=== PATIENT | female | born 1955 | race Caucasian/White ===

== ENCOUNTER 2016-07-04 12:56 | Outpatient (CLI) ==
[2016-03-06 15:49] VITALS: BMI 41.0
--- NOTE | 2016-07-04 14:21 | DI ---
Examination: Two radiographic images of the chest. Comparison: 01/18/2016. Reason for study: Shortness of breath. FINDINGS: No pneumothorax, pleural effusion, or focal consolidation. The cardiac silhouette is not enlarged. The imaged osseous structures are unremarkable. Impression: No acute cardiopulmonary findings.
--- NOTE | 2016-07-04 14:22 | DI ---
EXAM: Right wrist three-view HISTORY: Pain COMPARISON: None FINDINGS: The bones are normal. The joints are normal. No focal soft tissue abnormality. IMPERSSION: Normal examination.
--- NOTE | 2016-07-04 14:23 | DI ---
EXAM: Right forearm two-view HISTORY: Pain COMPARISON: None FINDINGS: The bones are normal. Alignment is normal. No focal soft tissue abnormality. IMPERSSION: Normal examination.
== END 2016-07-04 12:57 | disposition home or self-care (01) ==
LOC: CAR 12:56
PROVIDERS: ATTEND Internal Medicine
DX: J45.909 Unspecified asthma, uncomplicated (principal); R06.02 Shortness of breath; M25.531 Pain in right wrist; M79.631 Pain in right forearm
CPT/HCPCS: 93005; 93010

== ENCOUNTER 2017-04-15 14:52 | Emergency (ER) ==
--- NOTE | 2017-04-15 14:58 | ED.PDOC ---
General ED Provider: Dr. KALANI NAGY JR Chief Complaint: Fall Stated Complaint: lost balance while doing dishes at 2am this morning and fell. complains of back pain, left knee, ankle and foot pain [ End ]98.1 73 20 93 158/ 89 12/18 Time Seen by Physician: 16:28 Mode of Arrival: Walk-In Information Source: Patient Exam Limitations: No limitations Primary Care Provider: JOYCE MCINTYRE Nursing and Triage Documentation Reviewed and Agree: No Review of Systems - Review Of Systems Constitutional: Reports: No symptoms Eyes: Reports: No symptoms Ears, Nose, Mouth, Throat: Reports: No symptoms Respiratory: Reports: No symptoms Cardiac: Reports: No symptoms GI: Reports: No symptoms : Reports: No symptoms Musculoskeletal: Reports: Back pain, Joint pain Skin: Reports: No symptoms Neurological: Reports: No symptoms Endocrine: Reports: No symptoms Hematologic/Lymphatic: Reports: No symptoms All Other Systems: Other Past Medical History - Past Medical History Previously Healthy: Yes Endocrine: Reports: DM 2, Hypothyroid, Dyslipidemia Cardiovascular: Reports: None, Other (MITRAL VALVE PROLAPSE) Respiratory: Reports: None Hematological: Reports: None Gastrointestinal: Reports: None, Liver, Other (GASTROENTERITIS, IBS) Genitourinary: Reports: CKD Neuro/Psych: Reports: None Musculoskeletal: Reports: Arthritis Cancer: Reports: Other Last Menstrual Period: none - Surgical History General Surgical History: Reports: Tubal ligation (TUBAL LIGATION, OOPHORECTOMY) , Cholecystectomy, Back Surgery (BACK SURGERY IN 2008) - Family History Family History: Reports: Unknown - Social History Smoking Status: Former smoker Hx Substance Use: No Alcohol Screening: None Physical Exam - Physical Exam Appearance: Well-appearing Pain Distress: Mild Neck: Supple Respiratory: Airway patent Musculoskeletal: Normal strength, ROM intact, No edema, No calf tenderness ( tenderness left knee foot and back as noted) Skin: Warm, Dry, Normal color Neurological: Sensation intact, Motor intact, Reflexes intact, Cranial nerves intact, Alert, Oriented Psychiatric: Affect appropriate, Mood appropriate Interpretation - Radiology Interpretation Radiology Interpretation By: Radiologist Radiology Results: Negative Exam Interpreted: CT Scan (lsspine degenerative disease no acute changes), Other (knee foot no fracture) Critical Care Note - Critical Care Note Total Time (mins): 0 Course - Course Orders, Labs, Meds: Orders Category Date Time Status CT LUMBAR SPINE W/O CONTRAST Stat RADS 12/06/17 15:21 Completed FOOT, LEFT 3 VIEWS Stat RADS 04/15/17 15:21 Completed KNEE, LEFT 4 VIEWS Stat RADS 04/15/17 15:21 Completed Vital Signs: Temp Pulse Resp BP Pulse Ox 04/15/17 14:52 98.1 F 73 20 158/89 H 93 L Departure - Departure Time of Disposition: 16:30 Disposition: HOME SELF-CARE Discharge Problem: Falls, Multiple contusions Instructions: Contusion in Adults (ED) Condition: Good Pt referred to PMD for follow-up: Yes Additional Instructions: discuss nodule seen on CT with PMD Please follow-up with Dr. Mcintyre in 1-3 days ice for 20 minutes three times a day for three days Tylenol for pain return if worsening. recheck if pain not resolved in a week Allergies/Adverse Reactions: Allergies epinephrine Adverse Reaction (Mild, Verified 04/15/17 14:57) PT STATES SHE HAD A LOCAL REACTION WHERE THE INJECTION WAS IN THE 80'S metronidazole [From Flagyl] Adverse Reaction (Verified 04/15/17 14:57) naproxen [From Naprosyn] Adverse Reaction (Verified 04/15/17 14:57) Penicillins Adverse Reaction (Verified 04/15/17 14:57) Sulfa (Sulfonamide Antibiotics) Adverse Reaction (Verified 04/15/17 14:57) sulfamethoxazole [From Bactrim] Adverse Reaction (Verified 04/15/17 14:57) trimethoprim [From Bactrim] Adverse Reaction (Verified 04/15/17 14:57) vancomycin Adverse Reaction (Verified 04/15/17 14:57) Home Medications: Ambulatory Orders Levothyroxine Sodium [Synthroid] 75 mcg PO QDAC 11/12/12 Lisinopril [Zestril] 20 mg PO DAILY 11/12/12 Pantoprazole Sodium [Protonix] 40 mg PO BID 11/12/12 Alprazolam [Xanax] 0.5 mg PO TID 04/21/14 Metoprolol Tartrate [Lopressor] 50 mg PO DAILY 04/21/14 Gabapentin 400 mg PO TID 07/07/15 Tramadol HCl 50 mg PO DAILY 07/07/15 Albuterol Sulfate [Ventolin Hfa] 18 gm IH Q6H 04/15/17 Hydrocodone Bit/Acetaminophen [[place] 7.5-325] 1 tab PO TID 04/15/17 Insulin Aspart Prot/Insuln Asp [Novolog Mix 70-30 Flexpen Syrn] 100 unit SQ DAILY 04/15/17 Insulin Regular, Human [Novolin R Insulin] 0 unit SUBCUT DIRECTED 04/15/17 Liraglutide [Victoza 2-Everett] 1.2 mg SQ DAILY 04/15/17 Lisinopril/Hydrochlorothiazide [Zestoretic 20-12.5 mg Tab] 1 tab PO DAILY
[2017-04-15 15:00] VITALS: BP 158/89; TEMP 98.1; BMI 41.3
--- NOTE | 2017-04-15 15:49 | DI ---
EXAM: LEFT KNEE. HISTORY: Fall, patellar pain FINDINGS: Left knee four view. Articular cartilage width is normal. There is no fracture or joint effusion. Bone density and soft tissues are within normal limits. IMPRESSION: Within normal limits.
--- NOTE | 2017-04-15 15:52 | DI ---
EXAM: LEFT FOOT, 3 VIEWS HISTORY: Fall, second metatarsal pain FINDINGS / IMPRESSION: No displaced fracture or joint dislocation. Mild arthropathy of the interpha langeal joints. No joint effusion.
--- NOTE | 2017-04-15 16:16 | CT ---
EXAM: CT of the lumbar spine without contrast History: Lower back trauma and right paraspinal pain. Comparison: CT lumbar spine 02/02/2015 Technique: Multiplanar CT images through the lumbar spine were obtained without the administration o f IV contrast Findings: Nodular cirrhotic liver. Uterine fibroid measuring 5 cm. 1 cm hyperattenuating subcutaneo us lesion posterior to the left side of L2. No acute fracture or subluxation of the lumbar spine. Moderate to severe disc space narrowing at L5- S1 with endplate sclerosis, osteophyte formation and vacuum disc phenomenon not significantly changed compared to the prior study. T12-L1: No significant disc bulge, central canal stenosis or neural foraminal narrowing. L1-L2: No significant disc bulge, central canal stenosis or neural foraminal narrowing. L2-L3: No significant disc bulge, central canal stenosis or bony neural foraminal narrowing. L3-L4: No significant disc bulge or central canal stenosis. Mild bilateral bony neural foraminal na rrowing secondary to ligamentous and facet hypertrophy. L4-L5: Small to modest paracentral disc protrusion effacing the anterior thecal sac with mild to mod erate central canal stenosis. Moderate bilateral bony neural foraminal narrowing secondary to ligame ntous and facet hypertrophy. L5-S1: Left paracentral posterior disc osteophyte complex. Mild central canal stenosis. Severe lef t and moderate right bony neural foraminal narrowing secondary to ligamentous and facet hypertrophy. Impression: 1. No acute osseous abnormality of the lumbar spine. 2. Moderate to severe degenerative disc disease at L5-S1. 3. Level by level analysis as detailed above with severe left-sided bony neural foraminal narrowing at L5-S1. 4. Uterine fibroid. 5. Indeterminate subcutaneous skin lesion posterior to the left side of L2 could be benign or malign ant. Correlate clinically.
== END 2017-04-15 16:50 | disposition home or self-care (01) ==
LOC: ED 14:52
DX: M54.9 Dorsalgia, unspecified (principal); M25.562 Pain in left knee; M25.572 Pain in left ankle and joints of left foot; W19.XXXA Unspecified fall, initial encounter
CPT/HCPCS: 99283

== ENCOUNTER 2017-04-23 12:52 | Outpatient (CLI) ==
--- NOTE | 2017-04-23 14:41 | MRI ---
EXAM: MRI of the left knee without contrast COMPARISON: None available. HISTORY: Left knee pain. TECHNIQUE: Multiplanar noncontrast MR images of the left knee were acquired using a 1.2 Kaitlyn magnet . FINDINGS: No recent radiographs of the left knee are available for comparison and radiographic corre lation is recommended. There is a tear extending obliquely to the inferior articular surface of the medial meniscus from the body through the posterior horn with peripheral undersurface flap extending just into the inferior r ecess at the level the body. Minimal blunting and irregularity of the free edge at the posterior hor n and root related to degenerative fraying/small free edge tear as well. There is intrasubstance degeneration of the lateral meniscus. Degenerative fraying/small tear involv ing the free edge of the posterior horn/root through the body. Intact anterior and posterior cruciate ligament fibers are identified. Medial collateral ligament, l ateral collateral ligament complex and posterolateral corner ligaments are intact. Mild distal quadr iceps tendinosis. The patellar tendon is intact. Subcutaneous edema anteriorly. No abnormal sublux ation of the patella. There is chondromalacia patella with mild thinning and superficial irregularity of the cartilage of t he patella. Mild thinning and irregularity of the cartilage in the medial and lateral compartments. No evidence of an acute fracture, osteomyelitis or focal marrow lesion. Small joint effusion, nonsp ecific. There is a popliteal cyst measuring 4.0 x 1.4 x 0.8 cm. There is a heterogeneous 7.6 x 3.3 x 0.8 cm T2 hyperintense collection extending along the posterolateral aspect of the popliteal cyst e xtending along the surface of the medial head of the gastrocnemius with adjacent edema which may repr esent sequela of popliteal cyst rupture and/or adjacent evolving hematoma. IMPRESSION: 1. Popliteal cyst with an adjacent heterogeneous T2 hyperintense collection related to a cyst ruptur e and/or adjacent evolving hematoma. Consider follow-up MRI with and without contrast in 2-3 months time in order to document resolution. 2. Flap tear of the medial meniscus as described. 3. Degenerative fraying and small tear of the free edge of the lateral meniscus. 4. Mild distal quadriceps tendinosis and enthesopathy. 5. Mild tricompartmental osteoarthrosis.
== END 2017-04-23 12:53 | disposition home or self-care (01) ==
LOC: RAD 12:52
PROVIDERS: ATTEND Internal Medicine
DX: M25.562 Pain in left knee (principal); W19.XXXA Unspecified fall, initial encounter

== ENCOUNTER 2017-08-15 18:52 | Emergency (ER) ==
[2017-08-15 19:00] VITALS: BP 145/85; TEMP 98.2; BMI 42.5
--- NOTE | 2017-08-15 19:12 | ED.PDOC ---
General ED Provider: Dr. ALEXIS BUTT Chief Complaint: Shortness of Air Stated Complaint: Pateint is a 62 year old female who comes to the ER with cough , upper respitory symptoms, short of air, sore throat. States she quit smoking 9 year ago. Denies any fever. Has chest pain with cough only. Time Seen by Physician: 19:10 Mode of Arrival: Walk-In Information Source: Patient Primary Care Provider: JOYCE MCINTYRE Nursing and Triage Documentation Reviewed and Agree: Yes Reviewed sepsis parameters & appropriate labs ordered?: No System Inflammatory Response Syndrome: Not Applicable Sepsis Protocol: For patient's 13 years and over: Temp is 96.8 and below OR 101 and greater Pulse >90 BPM Resp >20/minute Acutely Altered Mental Status Are patient's symptoms suggestive of a new infection, such as: -Pneumonia -Skin, Soft Tissue -Endocarditis -UTI -Bone, Joint Infection -Implantable Device -Acute Abdominal Infection -Wound Infection -Meningitis -Blood Stream Catheter Infection -Unknown System Inflammatory Response Syndrome: Not Applicable Respiratory Complaint Exam - Respiratory Complaint/Exam Onset/Duration: 1 week Symptoms Are: Still present Timing: Constant Initial Severity: Moderate Current Severity: Moderate Location: Throat, Chest Character: Reports: Non-productive cough Aggravating: Reports: URI, Weather. Denies: Passive smoke exposure Associated Signs and Symptoms: Reports: URI, Sore throat. Denies: Fever, Chills Related History: Reports: Similar episode History of Healthcare-Acquired Pneumonia: No Related Surgical History: Reports: None Pulmonary Embolism Risk Factors: None Cardiac Risk Factors: Reports: None Pseudomonas Risk Factors: Reports: None Tuberculosis Risk Factors: Reports: None Status Asthmaticus Risk Factors: Reports: None Home Oxygen Use: No Recent Stress Test: No Recent Echo/LV Function: No Current Antibiotic Use: No Current Asthma Medication Use: Yes (Ventoline q 6 hours ) Respiratory Distress: None Inadequate Respiratory Effort: No Dysphagia Present: No Stridor Present: No JVD Present: No Accessory Muscle Use: No Retractions: Not Present Grunting Respirations: No Kussmaul Respirations: No Differential Diagnoses: Bronchitis, Sinusitis, URI Review of Systems - Review Of Systems Constitutional: Denies: Chills Eyes: Reports: No symptoms Ears, Nose, Mouth, Throat: Reports: Ear pain (itching pain), Throat pain Respiratory: Reports: Cough, Short of air (mild) Cardiac: Reports: Chest pain (with cough conly ) GI: Reports: No symptoms : Reports: No symptoms Musculoskeletal: Reports: No symptoms Skin: Reports: No symptoms Neurological: Reports: Headache All Other Systems: Reviewed and Negative Past Medical History - Past Medical History Previously Healthy: Yes Endocrine: Reports: DM 2, Hypothyroid, Dyslipidemia Cardiovascular: Reports: Other (MITRAL VALVE PROLAPSE) Respiratory: Reports: Asthma Hematological: Reports: None Gastrointestinal: Reports: None, Liver, Other (GASTROENTERITIS, IBS) Genitourinary: Reports: CKD Neuro/Psych: Reports: None Musculoskeletal: Reports: Arthritis Cancer: Reports: Other Last Menstrual Period: na Other Pertinent Past Medical History: GASTROENTERITIS, MITRAL VALVE PROLAPSE, IBS - Surgical History General Surgical History: Reports: Tubal ligation (TUBAL LIGATION, OOPHORECTOMY) , Cholecystectomy, Back Surgery (BACK SURGERY IN 2008) - Family History Family History: Reports: Unknown - Social History Smoking Status: Former smoker Hx Substance Use: No Alcohol Screening: None - Immunizations Tetanus Shot up to Date: Yes Physical Exam - Physical Exam Appearance: Ill-appearing Ill-appearing: Mild Pain Distress: Moderate Eyes: KALYANI, EOMI, Conjunctiva clear ENT: Ears normal, Nose normal, Oropharynx normal ( Tender left maxillary sinuses ) Neck: Supple Respiratory: Airway patent, Breath sounds clear, Breath sounds equal, Respirations nonlabored Cardiovascular: RRR, Pulses normal, No rub, No murmur Neurological: Alert, Oriented Psychiatric: Affect appropriate, Mood appropriate Critical Care Note - Critical Care Note Total Time (mins): 0 Course - Course Orders, Labs, Meds: Orders Category Date Time Status RAPID STREP SCREEN [MOLECULAR GROUP A STREP] Stat LAB 08/15/17 19:20 Completed Acetaminophen [Tylenol] MEDS 08/15/17 19:22 Discontinued 650 mg PO ONCE STA Benzonatate [Tessalon Perles] MEDS 08/15/17 19:24 Discontinued 100 mg PO ONCE STA Medications Discontinued Medications Generic Name Dose Route Start Last Admin Trade Name Javedq PRN Reason Stop Dose Admin Acetaminophen 650 mg 08/15/17 19:22 08/15/17 19:28 Tylenol PO 08/15/17 19:23 650 mg ONCE STA Administration Benzonatate 100 mg 08/15/17 19:24 08/15/17 19:27 Tessalon Perles PO 08/15/17 19:25 100 mg ONCE STA Administration Vital Signs: Temp Pulse Resp BP Pulse Ox 08/15/17 18:54 98.2 F 84 16 145/85 H 92 L Departure - Departure Time of Disposition: 19:44 Disposition: HOME SELF-CARE Discharge Problem: Acute bronchitis Qualifiers: Bronchitis organism: other organism Qualified Code(s): J20.8 - Acute bronchitis due to other specified organisms Sinusitis Qualifiers: Sinusitis location: maxillary Chronicity: acute Recurrence: non-recurrent Qualified Code(s): J01.00 - Acute maxillary sinusitis, unspecified Instructions: Sinusitis (ED), Acute Bronchitis (ED) Condition: Stable Pt referred to PMD for follow-up: Yes IPMP verified?: No Additional Instructions: Take medications as prescribed Follow up with PCP in 3 days Prescriptions: Azithromycin [Zithromax] 250 mg PO DIRECTED #6 tablet Benzonatate [Tessalon Perles] 100 mg PO TID PRN #25 capsule PRN Reason: Cold Symptons Methylprednisolone [Medrol Dosepak] 4 mg PO DIRECTED #1 pkg Allergies/Adverse Reactions: Allergies epinephrine Adverse Reaction (Mild, Verified 04/15/17 14:57) PT STATES SHE HAD A LOCAL REACTION WHERE THE INJECTION WAS IN THE 80'S metronidazole [From Flagyl] Adverse Reaction (Verified 04/15/17 14:57) naproxen [From Naprosyn] Adverse Reaction (Verified 04/15/17 14:57) Penicillins Adverse Reaction (Verified 04/15/17 14:57) Sulfa (Sulfonamide Antibiotics) Adverse Reaction (Verified 04/15/17 14:57) sulfamethoxazole [From Bactrim] Adverse Reaction (Verified 04/15/17 14:57) trimethoprim [From Bactrim] Adverse Reaction (Verified 04/15/17 14:57) vancomycin Adverse Reaction (Verified 04/15/17 14:57) Home Medications: Ambulatory Orders Levothyroxine Sodium [Synthroid] 75 mcg PO QDAC 11/12/12 Pantoprazole Sodium [Protonix] 40 mg PO BID 11/12/12 Alprazolam [Xanax] 0.5 mg PO TID 04/21/14 Metoprolol Tartrate [Lopressor] 50 mg PO DAILY 04/21/14 Gabapentin 400 mg PO TID 07/07/15 Tramadol HCl 50 mg PO DAILY 07/07/15 Albuterol Sulfate [Ventolin Hfa] 18 gm IH Q6H 04/15/17 Hydrocodone Bit/Acetaminophen [[place] 7.5-325] 1 tab PO TID 04/15/17 Insulin Aspart Prot/Insuln Asp [Novolog Mix 70-30 Flexpen Syrn] 100 unit SQ DAILY 04/15/17 Insulin Regular, Human [Novolin R Insulin] 0 unit SUBCUT DIRECTED 04/15/17 Liraglutide [Victoza 2-[place]] 1.2 mg SQ DAILY 04/15/17 Lisinopril/Hydrochlorothiazide [Zestoretic 20-12.5 mg Tab] 2 tab PO DAILY Azithromycin [Zithromax] 250 mg PO DIRECTED #6 tablet 08/15/17 Benzonatate [Tessalon Perles] 100 mg PO TID PRN #25 capsule 08/15/17 Dicyclomine HCl [Bentyl] 10 mg PO DIRECTED PRN 08/15/17 Methylprednisolone [Medrol Dosepak] 4 mg PO DIRECTED #1 pkg 08/15/17 Disposition Discussed With: Patient
[2017-08-15] MEDS ORDERED: TYLENOL PO STA (19:22)
[2017-08-15] MEDS ORDERED: TESSALON PERLES PO STA (19:24)
== END 2017-08-15 19:51 | disposition home or self-care (01) ==
LOC: ED 18:52
DX: J20.9 Acute bronchitis, unspecified (principal); J01.00 Acute maxillary sinusitis, unspecified
CPT/HCPCS: 87651; 99283

== ENCOUNTER 2017-10-17 17:04 | Emergency (ER) | payer OTHER ==
[2017-10-17 17:15] VITALS: TEMP 98.1; BMI 42.3
--- NOTE | 2017-10-17 17:59 | ED.PDOC ---
General ED Provider: Dr. ILEANA HAMPTON Chief Complaint: Fall Stated Complaint: CC: Fell off Bar Stool and hit back of head. HPI: Bar stool slipped out from under her and she fell off landing backward striking back of head against cabinet behind her. Denied LOC; [place] dizzy afterwards and nauseated note to be hypotensive upon arrival Managed to pull self up and drove self to ER. Complaining of pain to posterior skull, neck and upper back between scapular regions down to lower thoracic spine. Currently awake and oriented X 3 Time Seen by Physician: 17:15 Mode of Arrival: Walk-In Information Source: Patient Primary Care Provider: JOYCE MCINTYRE Nursing and Triage Documentation Reviewed and Agree: Yes Reviewed sepsis parameters & appropriate labs ordered?: Yes System Inflammatory Response Syndrome: Not Applicable Sepsis Protocol: For patient's 13 years and over: Temp is 96.8 and below OR 101 and greater Pulse >90 BPM Resp >20/minute Acutely Altered Mental Status Are patient's symptoms suggestive of a new infection, such as: -Pneumonia -Skin, Soft Tissue -Endocarditis -UTI -Bone, Joint Infection -Implantable Device -Acute Abdominal Infection -Wound Infection -Meningitis -Blood Stream Catheter Infection -Unknown Trauma/Injury Complaint Exam - Head Injury Complaint/Exam Location of Pain: Reports: Scalp, Neck Mechanism of Injury: Reports: Trauma Symptoms Are: Still present Initial Severity: Severe Current Severity: Mild Character: Reports: Dull, Pressure Aggravating: Reports: None Alleviating: Reports: Unknown Associated Signs and Symptoms: Reports: Neck pain. Denies: Confusion, Memory loss, Seizure, Epistaxis, Dental malocclusion, Nausea, Vomiting Loss of Consciousness: None Related History: Denies: Similar episode, Occupational injury SDH Risk Factors: Present: None Cervical Spine Injury Risk Factors: Present: Post-Midline CS tender. Absent: Evidence of intoxication Related Surgical History: Reports: None Head Injury Findings: Present: Normal findings, Neck pain. Absent: Hemotympanum , CSF rhinorrhea, Vickers's sign, [place] eyes, Meningeal signs, Nystagmus Focal Weakness: Present: None Focal Sensory Loss: Present: None Gait: Normal Gag Reflex Present: Yes Rhomberg Test Positive: No Nexus Low Risk Criteria: No post-midline CS tender, No evidence of intoxicat., No Altered LOC, No focal neuro deficit, No distracting injuries Differential Diagnoses: Strain, Other (closed head trauma, thoracic strain and contusion ) Review of Systems - Review Of Systems Constitutional: Reports: No symptoms Eyes: Reports: No symptoms Ears, Nose, Mouth, Throat: Reports: No symptoms Respiratory: Reports: No symptoms Cardiac: Reports: No symptoms GI: Reports: No symptoms : Reports: No symptoms Musculoskeletal: Reports: Back pain, Neck pain Skin: Reports: No symptoms Neurological: Reports: No symptoms, Headache Endocrine: Reports: No symptoms Hematologic/Lymphatic: Reports: No symptoms All Other Systems: Reviewed and Negative Past Medical History - Past Medical History Previously Healthy: Yes Endocrine: Reports: DM 2, Hypothyroid, Dyslipidemia Cardiovascular: Reports: Other (MITRAL VALVE PROLAPSE) Respiratory: Reports: Asthma Hematological: Reports: None Gastrointestinal: Reports: None, Liver, Other (GASTROENTERITIS, IBS) Genitourinary: Reports: CKD Neuro/Psych: Reports: None Musculoskeletal: Reports: Arthritis Cancer: Reports: Other Last Menstrual Period: na Other Pertinent Past Medical History: GASTROENTERITIS, MITRAL VALVE PROLAPSE, IBS - Surgical History General Surgical History: Reports: Tubal ligation (TUBAL LIGATION, OOPHORECTOMY) , Cholecystectomy, Back Surgery (BACK SURGERY IN 2008) - Family History Family History: Reports: Unknown - Social History Smoking Status: Never smoker Hx Substance Use: No Alcohol Screening: None - Immunizations Tetanus Shot up to Date: No Physical Exam - Physical Exam Appearance: Well-appearing, No pain distress, Well-nourished, Obese Ill-appearing: None Pain Distress: Mild Eyes: KALYANI, EOMI, Conjunctiva clear ENT: Ears normal, Nose normal, Oropharynx normal Respiratory: Airway patent, Breath sounds clear, Breath sounds equal, Respirations nonlabored Cardiovascular: RRR, Pulses normal, No rub, No murmur GI/: Soft, Nontender, No masses, Bowel sounds normal, No Organomegaly Musculoskeletal: Normal strength, ROM intact (cervical thoracic spine slightly tender but no reproducible cervical or cerebral radiculating features), No edema , No calf tenderness Skin: Warm, Dry, Normal color Neurological: Sensation intact, Motor intact, Reflexes intact, Cranial nerves intact, Alert, Oriented Psychiatric: Affect appropriate, Mood appropriate Re-Evaluation - Re-Evaluation Time of Re-Evaluation: 18:50 Status: Improved Vital Signs Stable: Yes Appearance: NAD Lungs: Clear Skin: Warm and Dry Neuro: Alert and Oriented X3 CV: RRR Additional Comments: Explained results of testing-feels well and ready for discharge Critical Care Note - Critical Care Note Total Time (mins): 60 (evaluated and monitored patients status, reviewed imaging and lab, discussed case and results with patient prior to discharge) Course - Course Hematology/Chemistry: 10/17/17 18:28 10/17/17 18:28 Orders, Labs, Meds: Lab Review 10/17/17 10/17/17 18:28 18:28 WBC 12.52 H RBC 4.50 Hgb 13.7 Hct 40.0 MCV 88.9 MCH 30.4 MCHC 34.3 RDW Coeff of Regina 13.4 Plt Count 147 Immature Gran % (Auto) 0.3 Neut % (Auto) 67.3 Lymph % (Auto) 25.2 [place] % (Auto) 5.7 Eos % (Auto) 1.0 Baso % (Auto) 0.5 Immature Gran # (Auto) 0.0 Neut # (Auto) 8.4 H Lymph # (Auto) 3.2 [place] # (Auto) 0.7 Eos # (Auto) 0.1 Baso # (Auto) 0.1 Sodium 139 Potassium 4.0 Chloride 102 Carbon Dioxide 27 Anion Gap 14.0 BUN 14 Creatinine 1.06 Estimated GFR (MDRD) 52.00 BUN/Creatinine Ratio 13.20 Glucose 162 H Calcium 9.7 Total Bilirubin 0.7 AST 35 ALT 33 Alkaline Phosphatase 130 Troponin I < 0.0100 Total Protein 7.4 Albumin 3.6 Globulin 3.8 Albumin/Globulin Ratio 0.95 Orders Category Date Time Status EKG-(ED ONLY) Stat CARDIO 10/17/17 18:01 Completed CBC W/ AUTO DIFF Stat LAB 10/17/17 18:28 Completed CMP [COMPREHENSIVE METABOLIC PANEL] Stat LAB 10/17/17 18:28 Completed TROPONIN I Stat LAB 10/17/17 18:[address] CERVICAL SPINE W/O CONTRAST Stat RADS 10/17/17 18:[address] CHEST W/O CONTRAST Stat RADS 10/17/17 18:[address] HEAD W/O CONTRAST Stat RADS 10/17/17 18:01 Completed Vital Signs: Temp Pulse Resp BP Pulse Ox 10/17/17 17:05 98.1 F 79 16 73/43 L 96 Departure - Departure Time of Disposition: 19:30 Disposition: HOME SELF-CARE Discharge Problem: Blunt head trauma, Cervical strain, acute, Thoracic myofascial strain, Type II diabetes mellitus, Orthostatic hypotension Instructions: Concussion (ED), Hypotension (ED) Condition: Good Pt referred to PMD for follow-up: Yes (Dr Mcintyre 1 week) IPMP verified?: No Additional Instructions: May take analgeics for pain as needed for pain Rest , Avoid stenuous activity Monitor BP and HR at home, record and if BP decrease to less than 100 systolic, hold BP med and check with physician Allergies/Adverse Reactions: Allergies epinephrine Adverse Reaction (Mild, Verified 10/17/17 17:13) PT STATES SHE HAD A LOCAL REACTION WHERE THE INJECTION WAS IN THE 80'S metronidazole [From Flagyl] Adverse Reaction (Verified 10/17/17 17:13) naproxen [From Naprosyn] Adverse Reaction (Verified 10/17/17 17:13) Penicillins Adverse Reaction (Verified 10/17/17 17:13) Sulfa (Sulfonamide Antibiotics) Adverse Reaction (Verified 10/17/17 17:13) sulfamethoxazole [From Bactrim] Adverse Reaction (Verified 10/17/17 17:13) trimethoprim [From Bactrim] Adverse Reaction (Verified 10/17/17 17:13) vancomycin Adverse Reaction (Verified 10/17/17 17:13) Home Medications: Ambulatory Orders Levothyroxine Sodium [Synthroid] 75 mcg PO QDAC 11/12/12 Pantoprazole Sodium [Protonix] 40 mg PO BID 11/12/12 Alprazolam [Xanax] 0.5 mg PO TID 04/21/14 Metoprolol Tartrate [Lopressor] 50 mg PO DAILY 04/21/14 Gabapentin 400 mg PO TID 07/07/15 Tramadol HCl 50 mg PO DAILY 07/07/15 Albuterol Sulfate [Ventolin Hfa] 18 gm IH Q6H 04/15/17 Hydrocodone Bit/Acetaminophen [[place] 7.5-325] 1 tab PO TID 04/15/17 Insulin Aspart Prot/Insuln Asp [Novolog Mix 70-30 Flexpen Syrn] 100 unit SQ DAILY 04/15/17 Insulin Regular, Human [Novolin R Insulin] 0 unit SUBCUT DIRECTED 04/15/17 Liraglutide [Victoza 2-Everett] 1.2 mg SQ DAILY 04/15/17 Lisinopril/Hydrochlorothiazide [Zestoretic 20-12.5 mg Tab] 2 tab PO DAILY Dicyclomine HCl [Bentyl] 10 mg PO DIRECTED PRN 08/15/17 Methylprednisolone [Medrol Dosepak] 4 mg PO DIRECTED #1 pkg 08/15/17 Disposition Discussed With: Patient
--- NOTE | 2017-10-17 18:38 | CT ---
EXAM: CT BRAIN HISTORY: Blunt head trauma, fall TECHNIQUE: CT brain without intravenous contrast. 5-mm axial sections with Reformations. COMPARISON: 08/10/2015 FINDINGS: There is generalized atrophy. There is at least mild periventricular and deep white matter low attenu ation which although nonspecific is suggestive of chronic microvascular ischemic change. These findi ngs are stable. Brain otherwise is unremarkable without evidence of hemorrhage or large vessel distribution recent is chemic infarction. There is no suggestion of acute hydrocephalus or subdural fluid collection. No m ass or mass effect. Cranium is within normal limits. Mastoid processes are aerated. The visualized paranasal sinuses a re clear. IMPRESSION: No acute intracranial process.
--- NOTE | 2017-10-17 18:43 | CT ---
EXAM: CT cervical spine. HISTORY: Fall, trauma. TECHNIQUE: CT cervical spine without contrast. Detailed axial sections. Coronal and sagittal re-fo rmations. COMPARISON: 07/18/2009 FINDINGS: No fracture or subluxation is identified. The vertebral body heights are maintained. Facet joints a re covered. Lateral masses of C1 and C2 are normally aligned and the odontoid process is intact. N o gross traumatic central canal stenosis or paraspinal hematoma IMPRESSION: No acute fracture or subluxation.
--- NOTE | 2017-10-17 18:45 | CT ---
EXAM: CT chest without contrast HISTORY: Fall COMPARISON: Chest x-ray 07/04/2016 and multiple priors TECHNIQUE: Serial axial images of the chest were obtained from the lung apices to the upper abdomen without contrast. These were viewed in multiple planes. FINDINGS: The thyroid is normal. The visualized vessels demonstrate atherosclerotic disease without aneurysm or stenosis. The heart is normal in size without pericardial effusion. There are no patho logically enlarged mediastinal or hilar lymph nodes. Calcified mediastinal and hilar lymph nodes. There is no pneumothorax or pleural effusion. There is minimal right lower lobe atelectasis. There are calcified granulomas present. The airways are patent. There is no consolidation, nodule or groun d-glass. The osseous structures are unremarkable with no acute fracture. There are 2 small low attenuation les ions in the right hepatic dome. IMPRESSION: 1. No acute abnormality or fracture. 2. Lower lobe atelectasis. 3. Low attenuation lesions in the hepatic dome consistent with cyst.
[2017-10-17 19:29] VITALS: BP 141/73
== END 2017-10-17 19:46 | disposition home or self-care (01) ==
LOC: ED 17:04
DX: S09.90XA Unspecified injury of head, initial encounter (principal); S16.1XXA Strain of muscle, fascia and tendon at neck level, initial encounter; S29.012A Strain of muscle and tendon of back wall of thorax, initial encounter; I95.1 Orthostatic hypotension; E11.9 Type 2 diabetes mellitus without complications; R42 Dizziness and giddiness; R11.0 Nausea; W07.XXXA Fall from chair, initial encounter; E03.9 Hypothyroidism, unspecified; E78.5 Hyperlipidemia, unspecified; N18.9 Chronic kidney disease, unspecified; Z79.899 Other long term (current) drug therapy; Z87.19 Personal history of other diseases of the digestive system
CPT/HCPCS: 36415; 80053; 84484; 85025; 93005; 93010; 99283

== ENCOUNTER 2017-11-13 11:35 | Inpatient (IN) ==
[2017-11-13] MEDS ORDERED: TYLENOL PO PRN (12:18)
[2017-11-13] MEDS ORDERED: ATROPINE SULFATE PFS IVP PRN (12:18)
[2017-11-13] MEDS ORDERED: VISTARIL INJ IM PRN (12:18)
[2017-11-13] MEDS ORDERED: NITROSTAT SL PRN (12:18)
[2017-11-13] MEDS ORDERED: MORPHINE 4 MG/ML VIAL IVP PRN (12:18)
[2017-11-13] MEDS ORDERED: BENTYL PO PRN ×2 (13:04→13:55)
[2017-11-13] MEDS ORDERED: PROAIR HFA IH PRN (13:04)
[2017-11-13] MEDS ORDERED: NYSTOP POWDER TP PRN (13:04)
[2017-11-13] MEDS ORDERED: ATARAX PO PRN (13:04)
[2017-11-13 13:33] VITALS: BMI 43.3
[2017-11-13] MEDS: XANAX PO SCH ×2 (14:04→22:41)
[2017-11-13] MEDS: NORCO 7.5-325 PO SCH ×2 (14:04→22:39)
--- NOTE | 2017-11-13 14:50 | US ---
EXAM: Bilateral carotid artery Doppler History: Hypertension, headache, dizziness. Comparison: Carotid Doppler 05/12/2013. Technique: Multiple sonographic images through the bilateral internal carotid arteries were obtained . Findings: The right ICA peak systolic velocity is within normal limits measuring 0.9 meters per second. The ri ght ICA/cca PSV ratio is normal at 1.0. The right vertebral artery is patent and demonstrates antegr carlton flow. Cline scale images demonstrate mild to moderate plaque buildup within the right internal car otid artery. The left ICA peak systolic velocity is within normal limits measuring 0.9 meters per second. The lef t ICA/cca PSV ratio is normal at 0.90. The left vertebral artery is patent and demonstrates antegrad e flow. Cline scale images demonstrate moderate plaque buildup within the left internal carotid arter y Impression: No significant hemodynamic stenosis of the bilateral internal carotid arteries.
--- NOTE | 2017-11-13 15:10 | CT ---
EXAM: CTA of the chest. History: Chest pain. Comparison: Chest CT 10/17/2017 Technique: Multiplanar CT images through the thorax were obtained following administration of IV con trast. MIP images and 3-D reconstructions were also acquired. Findings: Heart size is upper limits of normal. No pericardial effusion. No thoracic aortic aneury sm. No pathologically enlarged thoracic lymph nodes. There are calcified mediastinal and hilar lymp h nodes. No consolidation. No pleural fluid and no pneumothorax. No suspicious lung nodules or sue g masses. The visualized upper abdomen, the liver and spleen are enlarged. The liver demonstrates nodular surf lata contour. Stable tiny fat containing lesions within the hepatic dome compatible with benign angio myolipomas. No acute osseous abnormalities. Impression: 1. No pulmonary embolism and no evidence for pneumonia. 2. Borderline cardiomegaly but no evidence for pulmonary edema. 3. Old granulomatous disease. 4. Hepatosplenomegaly. 5. Nodular surface contour the liver consistent with cirrhosis. 6. Stable benign angiomyolipomas within the hepatic dome.
--- NOTE | 2017-11-13 16:15 | MRI ---
MRI the brain without contrast . HISTORY: Ataxia. COMPARISON: 08/03/2009. PROCEDURE: Multiplanar, multisequence imaging the brain performed without contrast. FINDINGS: The CSF spaces, including the ventricles, sulci and cisterns and surrounding meninges are generally stable in appearance with no evidence of new abnormal extra-axial fluid collections or leonard indu or meningeal based lesions. The cerebral hemispheres demonstrate no mass or mass effect or acu te hemorrhage or infarct. The periventricular and Centrum semiovale white matter appears unchanged. Note is again made of minimal T2W / FLAIR hyperintensity in the white matter abutting the anterior h orn region lateral ventricle and a acute 2 mm T2W / FLAIR hyperintense foci scattered within the subc ortical white matter bilaterally. The major vascular structures at the level of the [place] , including the internal carotid and basilar arteries and their major branches demonstrate detectable flow voids and grossly normal anatomy at the present level of resolution. The major posterior fossa structures including the cerebellar hemispheres and vermis appear unchanged. The brainstem appears unchanged. The petrous pyramids and mastoid air cells appear normal. The seventh and eighth nerve c omplexes, IACs and visualized inner ear structures are symmetric and normal in appearance at standard resolution ( no high resolution images are included ).. The cervicomedullary junction and region o f the foramen magnum demonstrate no evidence of tonsillar ectopy or Chiari malformation. The region of the sella turcica and contained pituitary gland demonstrates no intra or supra sellar mass or mass effect. The sella demonstrates a partially empty configuration consistent with the earlier examinati on. The pituitary gland may be borderline small. The orbits and orbital contents appear symmetric a nd within normal limits. Note is again made of slight prominence of the CSF seen in the distal optic nerve sheaths bilaterally. The paranasal sinuses appear normally developed and aerated. IMPRESSION: 1. The current examination demonstrates generally stable cerebral and cerebellar anatomy when compare d to the prior examination. 2. There is no evidence of new intracerebral mass, mass effect, acute hemorrhage or acute infarct. 3. Cerebral and cerebellar white matter are essentially unchanged. There is evidence of minimal supr atentorial white matter disease and no significant findings in the posterior fossa. 4. The sella demonstrates a partially empty configuration and there is modest increased CSF around th e distal optic nerves in the optic nerve sheaths. These findings can be seen in idiopathic intracran ial hypertension as discussed in the previous report. These findings may be coincidental in the absence of an appropriate clinical story. 5. Additional findings are listed in the report.
[2017-11-13] MEDS: PROTONIX PO SCH (16:44)
[2017-11-13] MEDS ORDERED: NON-FORMULARY MEDICATION (Gabapentin [Gabapentin] 800 MG) PO SCH (21:00)
[2017-11-13] MEDS: KENALOG 0.1% TP SCH (22:37)
[2017-11-13] MEDS: LOPRESSOR PO SCH (22:40)
[2017-11-13] MEDS: NEURONTIN PO SCH ×2 (22:40→22:41)
[2017-11-13] MEDS: GLYCOPYRROLATE IH SCH (22:44)
[2017-11-13] MEDS: [UNRECOGNIZED DRUG - OTHER] IH SCH (22:44)
[2017-11-13] MEDS: FORMOTEROL IH SCH (22:44)
[2017-11-14] MEDS: SYNTHROID PO SCH (05:59)
[2017-11-14] MEDS: PROTONIX PO SCH ×2 (05:59→16:43)
[2017-11-14] MEDS: KENALOG 0.1% TP SCH ×2 (08:01→21:36)
[2017-11-14] MEDS: NEURONTIN PO SCH ×4 (08:03→21:27)
[2017-11-14] MEDS: ASPIRIN EC PO SCH (08:03)
[2017-11-14] MEDS: NORCO 7.5-325 PO SCH ×3 (08:03→21:33)
[2017-11-14] MEDS: ZESTORETIC 20-12.5 MG TAB PO SCH (08:04)
[2017-11-14] MEDS: XANAX PO SCH ×3 (08:04→21:32)
[2017-11-14] MEDS: ULTRAM PO SCH (08:04)
[2017-11-14] MEDS ORDERED: ZESTORETIC 20-12.5 MG TAB PO SCH (09:00)
[2017-11-14] MEDS ORDERED: NON-FORMULARY MEDICATION (Gabapentin [Gabapentin] 400 MG) PO SCH (09:00)
[2017-11-14] MEDS ORDERED: LIRAGLUTIDE SQ SCH (09:00)
[2017-11-14] MEDS: [UNRECOGNIZED DRUG - OTHER] IH SCH ×3 (09:36→21:23)
[2017-11-14] MEDS: GLYCOPYRROLATE IH SCH ×3 (09:36→21:23)
[2017-11-14] MEDS: FORMOTEROL IH SCH ×3 (09:36→21:23)
[2017-11-14] MEDS: NON-FORMULARY MEDICATION (Liraglutide [Victoza 2-Pak] 1.2 MG) SUBCUT SCH ×2 (09:37→13:41)
[2017-11-14] MEDS: LOPRESSOR PO SCH (21:26)
[2017-11-15] MEDS: PROTONIX PO SCH ×2 (05:41→16:29)
[2017-11-15] MEDS: SYNTHROID PO SCH (05:41)
[2017-11-15] MEDS: GLYCOPYRROLATE IH SCH ×2 (08:16→22:08)
[2017-11-15] MEDS: [UNRECOGNIZED DRUG - OTHER] IH SCH ×2 (08:16→22:08)
[2017-11-15] MEDS: ZESTORETIC 20-12.5 MG TAB PO SCH (08:16)
[2017-11-15] MEDS: FORMOTEROL IH SCH ×2 (08:16→22:08)
[2017-11-15] MEDS: XANAX PO SCH ×3 (08:17→22:22)
[2017-11-15] MEDS: ULTRAM PO SCH (08:17)
[2017-11-15] MEDS: NORCO 7.5-325 PO SCH ×3 (08:17→22:06)
[2017-11-15] MEDS: NEURONTIN PO SCH ×4 (08:17→22:17)
[2017-11-15] MEDS: ASPIRIN EC PO SCH (08:17)
[2017-11-15] MEDS: KENALOG 0.1% TP SCH ×2 (08:19→22:10)
[2017-11-15] MEDS: NON-FORMULARY MEDICATION (Liraglutide [Victoza 2-Pak] 1.2 MG) SUBCUT SCH (08:20)
[2017-11-15] MEDS: LOPRESSOR PO SCH (22:06)
[2017-11-16] MEDS ORDERED: ATROPINE SULFATE PFS ONE (07:30)
[2017-11-16] MEDS ORDERED: DOBUTAMINE 250 ML IV ONE (07:30)
[2017-11-16] MEDS: NEURONTIN PO SCH ×2 (11:07→11:08)
[2017-11-16] MEDS: SYNTHROID PO SCH (11:07)
[2017-11-16] MEDS: PROTONIX PO SCH (11:08)
[2017-11-16] MEDS: ULTRAM PO SCH (11:08)
[2017-11-16] MEDS: ASPIRIN EC PO SCH (11:08)
[2017-11-16] MEDS: NORCO 7.5-325 PO SCH (11:08)
[2017-11-16] MEDS: XANAX PO SCH (11:08)
[2017-11-16] MEDS: FORMOTEROL IH SCH (11:09)
[2017-11-16] MEDS: GLYCOPYRROLATE IH SCH (11:09)
[2017-11-16] MEDS: [UNRECOGNIZED DRUG - OTHER] IH SCH (11:09)
[2017-11-16] MEDS: ZESTORETIC 20-12.5 MG TAB PO SCH (11:09)
[2017-11-16 11:18] VITALS: BP 131/75; TEMP 97.5
--- NOTE | 2017-11-16 11:22 | NM ---
Cardiac Stress Test HISTORY: Chest pain. COMPARISON: None of this type. TECHNIQUE: Resting: The patient was injected with 13 millicuries of 99m technetium Sestamibi (Cardiolite) intra venously after which a "resting" SPECT study of the heart was performed. Stress: The patient was stressed pharmacologically with dobutamine and at the appropriate time injec estuardo with 31.3 millicuries of 99m technetium Sestamibi (Cardiolite) after which a "stress" SPECT study of the heart was performed. Gated images of the heart were also obtained to assess wall motion and c alculate ejection fraction. For details of the stress protocol employed, reference is made to the se felicianoe report of the performing physician. FINDINGS: The stress perfusion images demonstrate a generally uniform distribution of activity in th e left ventricular myocardium. The resting perfusion images demonstrate no evidence of significant r edistribution/ischemia. The left ventricular ejection fraction (LVEF) is 65%. IMPRESSION: 1. Left ventricular myocardial perfusion is within normal limits. 2. The left ventricular ejection fraction (LVEF) is 65%.
[2017-11-16] MEDS: NON-FORMULARY MEDICATION (Liraglutide [Victoza 2-Pak] 1.2 MG) SUBCUT SCH (11:25)
[2017-11-16] MEDS: KENALOG 0.1% TP SCH (11:26)
--- NOTE | 2017-11-16 13:29 | CM.DICTOOL ---
ADMISSION: 11/13/17 11:35 DISCHARGE: 11/16/17 FINAL DIAGNOSIS CHEST PAIN DYSPNEA GERD HISTORY OF: DYSLIPIDEMIA HTN ASTHMA CIRRHOSIS (NON-ALCOHOLIC) DIVERTICULOSIS IBS S/P CHOLECYSTECTOMY 1976 CKD STAGE 3 S/P OPHORECTOMY DATE UNKNOWN MENOPAUSE OSTEOARTHRITIS S/P LUMBAR SURGERY DATE UNKNOWN IDDM HYPOTHYROIDISM ANXIETY ANEMIA LAST VITALS Temp Pulse Resp BP Pulse Ox 97.5 F L 83 20 131/75 97 11/16/17 10:00 11/16/17 10:00 11/16/17 10:00 11/16/17 10:00 11/16/17 10:00 TAKE THESE MEDICATIONS AT HOME Acetaminophen (Tylenol) 650 mg PO Q4H PRN PRN Reason: Headache Hydrocodone Bitart/Acetaminophen ([place] 7.5-325) 1 tab PO TID [facility] Last Admin: 11/16/17 11:08 Dose: 1 tab Albuterol Sulfate (Proair Hfa) 1 puff IH Q6H PRN PRN Reason: SOA Alprazolam (Xanax) 0.5 mg PO TID [facility] Last Admin: 11/16/17 11:08 Dose: 0.5 mg Dicyclomine HCl (Bentyl) 10 mg PO DAILY PRN PRN Reason: DIARRHEA Gabapentin (Neurontin) 300 mg PO DAILY [facility] Last Admin: 11/16/17 11:07 Dose: 300 mg Gabapentin (Neurontin) 100 mg PO DAILY [facility] Last Admin: 11/16/17 11:08 Dose: 100 mg Gabapentin (Neurontin) 600 mg PO BEDTIME [facility] Last Admin: 11/15/17 22:07 Dose: 600 mg Gabapentin (Neurontin) 200 mg PO BEDTIME [facility] Last Admin: 11/15/17 22:17 Dose: 200 mg Lisinopril/HCTZ (Zestoretic 20-12.5 Mg Tab) 2 tab PO DAILY [facility] Last Admin: 11/16/17 11:09 Dose: 2 tab Hydroxyzine HCl (Atarax) 25 mg PO TID PRN PRN Reason: itching, irritation Last Admin: 11/13/17 14:04 Dose: 25 mg Levothyroxine Sodium (Synthroid) 75 mcg PO QDAC [facility] Last Admin: 11/16/17 11:07 Dose: 75 mcg Metoprolol Tartrate (Lopressor) 50 mg PO BEDTIME [facility] Last Admin: 11/15/17 22:06 Dose: 50 mg Non-Formulary Medication (Glycopyrrolate/Formoterol Fum [Bevespi Aerosphere Inhaler]) 5.9 gm IH BID [facility] Last Admin: 11/16/17 11:09 Dose: 5.9 gm Non-Formulary Medication (Insulin Aspart Prot/Insuln Asp [Novolog Mix 70-30 Flexpen Syrn]) 94 unit SUBCUT DAILYWM [facility] Last Admin: 11/16/17 11:25 Dose: Not Given Non-Formulary Medication (Insulin Aspart Prot/Insuln Asp [Novolog Mix 70-30 Flexpen Syrn]) 97 unit SUBCUT BEDTIME [facility] Last Admin: 11/15/17 22:09 Dose: Not Given Non-Formulary Medication (Insulin Aspart Prot/Insuln Asp [Novolog Mix 70-30 Flexpen Syrn]) 85 unit SUBCUT 1200 [facility] Last Admin: 11/16/17 12:22 Dose: Not Given Non-Formulary Medication (Liraglutide [Victoza 2-Everett]) 1.2 mg SUBCUT DAILY [facility] Last Admin: 11/16/17 11:25 Dose: 1.2 mg Nystatin (Nystop Powder) 1 applic TP BID PRN PRN Reason: skin irriation Pantoprazole Sodium (Protonix) 40 mg PO BIDAC [facility] Last Admin: 11/16/17 11:08 Dose: 40 mg Tramadol HCl (Ultram) 50 mg PO DAILY [facility] Last Admin: 11/16/17 11:08 Dose: 50 mg Triamcinolone Acetonide (Kenalog 0.1%) 1 applic TP BID [facility] Last Admin: 11/16/17 11:26 Dose: 1 applic ALLERGIES epinephrine Adverse Reaction (Mild, Verified 10/17/17 17:13) metronidazole [From Flagyl] Adverse Reaction (Verified 10/17/17 17:13) naproxen [From Naprosyn] Adverse Reaction (Verified 10/17/17 17:13) Penicillins Adverse Reaction (Verified 10/17/17 17:13) Sulfa (Sulfonamide Antibiotics) Adverse Reaction (Verified 10/17/17 17:13) sulfamethoxazole [From Bactrim] Adverse Reaction (Verified 10/17/17 17:13) trimethoprim [From Bactrim] Adverse Reaction (Verified 10/17/17 17:13) vancomycin Adverse Reaction (Verified 10/17/17 17:13) NEW PRESCRIPTIONS: NONE SMOKING: N/A DISEASE SPECIFIC EDUCATION: CHEST PAIN MEDICATION ACTIVITY DIET INCLUDING OUTPATIENT DIETARY CONSULT LAB REVIEW: 11/16/17 04:40 11/16/17 04:40 11/16/17 04:40: Sodium 138, Potassium 4.3, Chloride 100, Carbon Dioxide 30, Anion Gap 12.3, BUN 15, Creatinine 1.11, Estimated GFR (MDRD) 50.00, BUN/ Creatinine Ratio 13.51, Glucose 121 H, Calcium 9.2, Total Bilirubin 0.7, AST 31 , ALT 27, Alkaline Phosphatase 104, Total Protein 7.0, Albumin 3.4, Globulin 3.6 , Albumin/Globulin Ratio 0.94 11/16/17 04:40: WBC 9.00, RBC 4.27, Hgb 12.9, Hct 38.9, MCV 91.1, MCH 30.2, MCHC 33.2, RDW Coeff of [place] 13.2, Plt Count 139 L, Immature Gran % (Auto) 0.2, Neut % (Auto) 63.3, Lymph % (Auto) 30.3, [place] % (Auto) 5.0, Eos % (Auto) 0.8, Baso % (Auto) 0.4, Immature Gran # (Auto) 0.0, Neut # (Auto) 5.7, Lymph # (Auto ) 2.7, [place] # (Auto) 0.5, Eos # (Auto) 0.1, Baso # (Auto) 0.0 PLAN: DISCHARGE TO HOME TODAY. 11/16/17 CONTINUE HOME MEDICATIONS PER NURSING SHEET. NO NEW MEDICATIONS DIET TOLERATED. A DIET CONSULT HAS BEEN ORDERED FOR YOU OUTPATIENT. THE [facility] [employer] WILL CALL YOU WITH AN APPOINTMENT DATE AND TIME. ACTIVITY TOLERATED. AVOID THE HEAT AND HUMIDITY OUTSIDE. FOLLOW UP WITH DR. MCINTYRE ON ThursdayNovember AT 1030AM. IF UNABLE TO KEEP APPOINTMENT, PLEASE CALL TO RESCHEDULE. [phone]. PATIENT IS A FULL CODE. SITTING UP IN BED. ALERT AND ORIENTED X 4. DR. MCINTYRE INTO SEE PATIENT. NEW ORDERS RECEIVED. PLAN OF CARE DISCUSSED PER DR. MCINTYRE. APPETITE IS GOOD. VITAL SIGNS ARE STABLE. HAS BEEN AFEBRILE. POX 95% ON 2L/C. HEART TONES ARE REGULAR WITH TELEMETRY REVEALING SINUS RHYTHM WITH PAC/SINUS ARRHYTHMIA WITH PAC. NO C/ O PAIN OR DISCOMFORT. LUNGS ARE CLEAR WITH DIMINISHED BREATH SOUNDS. NO COUGH NOTED. C/O DYSPNEA WITH ACTIVITY. STATES UNABLE TO LIE FLAT DUE TO DYSPNEA. ABDOMEN IS SOFT, NON-TENDER WITH BOWEL SOUNDS POSITIVE IN ALL 4 QUADS. PEDAL PULSES POSITIVE WITHOUT EDEMA. HAS SALINE LOCK IN LEFT FOREARM AND RIGHT WRIST. BOTH SITES ARE CLEAR. IS INDEPENDENT WITH ACTIVITY OF DAILY LIVING. DR. JOYCE MCINTYRE MD Aashish PATHAK APRN
--- NOTE | 2017-11-16 13:48 | PN ---
DATE OF SERVICE: 11/15/17 SUBJECTIVE: 62-year-old white female hospitalized with chest pain and shortness of breath. The patient's cardiovascular status is stable with no evidence of acute FL or ischemia. Telemetry shows atrial fibrillation, sinus rhythm. REVIEW OF SYSTEMS: CONSTITUTIONAL: No night sweats. No fatigue, malaise, lethargy. No fever or chills. HEENT: Eyes: No visual changes. No eye pain. No eye discharge. ENT: No runny nose. No epistaxis. No sinus pain. No sore throat. No odynophagia. No congestion. RESPIRATORY: No cough, no congestion. No hemoptysis. No shortness of breath. CARDIOVASCULAR: No angina symptoms. No CHF symptoms. No atypical chest pain for CAD. No palpitations. No orthopnea. GASTROINTESTINAL: No abdominal pain. No nausea or vomiting. No diarrhea or constipation. No hematemesis. No hematochezia. GENITOURINARY: No urgency. No frequency. No dysuria. No hematuria. No obstructive symptoms. No discharge. No pain. No significant abnormal bleeding. MUSCULOSKELETAL: No musculoskeletal pain; no joint swelling. NEUROLOGICAL: No headache. No neck pain. No syncope. No seizures. No dizziness. PSYCHIATRIC: Not anxious. No depression. No suicidal thoughts. No homicidal thoughts. SKIN: No rash. No lesions. No wounds. ENDOCRINE: No unexplained weight loss. No weight gain. HEMATOLOGIC/LYMPHATIC: No anemia. No purpura. No petechiae. No prolonged or excessive bleeding. No palpable lymph nodes. PHYSICAL EXAMINATION: GENERAL: The patient is oriented to time, place and person. VITAL SIGNS: Temperature 97.7, pulse 66, respiratory rate 14, BP 100/60, pulse ox 96%. HEENT: Head normocephalic, atraumatic. Eyes: Extraocular muscles are intact. Pupils are equal, round and reactive to light and accommodation. Ears: No lesions. Nose appeared normal. Throat: No exudate or erythema. NECK: Supple. No JVD, no carotid bruit. No lymphadenopathy or thyromegaly. LUNGS: Decreased breath sounds. Clear to auscultation. Percussion note normal. Chest symmetrical. HEART: S1, S2, no S3. No murmurs. No cyanosis or clubbing. No ascites. Pulses: Dorsalis pedis and posterior tibial pulses +1 to +2 both sides. ABDOMEN: Soft. Nontender. Bowel sounds active. No CVA tenderness. No mass felt. EXTREMITIES: No edema. Full range of motion of all extremities, equal. NEUROLOGIC: No focal deficit. Cranial nerves II through XII are grossly intact. No headache, no double vision or headache. SKIN: Not dry. Intact. Turgor - normal. LYMPHATIC: No palpable lymph nodes/no lymphedema. MUSCULOSKELETAL: Normal joints with no swelling. Muscle tone is normal. LABS: Hemoglobin 13, hematocrit 39, WBC 10,000, normal differential. Creatinine 1, BUN 15, potassium 4, BNP 17. ASSESSMENT: 1. CHEST PAIN 2. MORBID OBESITY 3. DYSLIPIDEMIA 4. HYPERTENSION 5. METABOLIC SYNDROME 6. HYPOTHYROIDISM 7. NEUROPATHY 8. DIABETES MELLITUS WHICH IS EQUIVALENT OF CORONARY ARTERY DISEASE PLAN: 1. Will do echocardiogram. 2. Will do Dobutamine stress echo. 3. The patient was explained about morbid obesity; declined any referral to bariatric center. 4. Weight loss ADA diet discussed. 5. Coronary artery disease discussed with diabetes mellitus. 6. Risk factors for diabetes discussed, how to modify them. The patient is noncompliant of medications, lifestyle and diet. She has sedentary lifestyle. PROGNOSIS: Poor. CONDITION: STABLE TIME SPENT: More than 30 minutes. Plan and coordination of the patient's care discussed in the presence of nurse. ASTRID
--- NOTE | 2017-11-17 09:49 | DS ---
DATE OF SERVICE: 11/16/17 FINAL DIAGNOSIS: 1. Chest pain 2. Dyspnea 3. GERD 4. Dyslipidemia 5. Hypertension 6. Asthma 7. Cirrhosis (Non-alcohol) 8. Diverticulosis 9. IBS 10.Status post cholecystectomy 1976 11.Chronic kidney disease, stage 3 12.Status post Oophorectomy Date unknown 13.Menopause 14.Osteoarthritis 15.Status post lumbar surgery date unknown 16.IDDM 17.Hypothyroidism 18.Anxiety 19.Anemia LAST VITAL: Temperature 97.5, pulse 83, respiratory rate 20, blood pressure 131/75 and pulse ox 97%. DISCHARGE INSTRUCTIONS: Discharge to home, 11/16/17. Continue home medications per nursing sheet. No new medications. Followup with Dr. Wang on ThursdayNovember 23 at 1030am. The patient is full code. MEDICATIONS AT DISCHARGE: Tylenol 650mg PO Q 4 hours PRN [place] 7.5-325 PO three times a day ProAir 1 puff IG Q 6 hours PRN Xanax 0.5mg PO three times a day Bentyl 10mg PO daily PRN Neurontin 300mg PO daily Neurontin 100mg Po daily Neurontin 600mg PO bedtime Neurontin 200mg PO bedtime Zestoretic 20-12.5mg two tablet Po daily Atarax 25mg PO three times a day PRN Synthroid 75mch PO QDAC Lopressor 50mg PO bedtime Bevespi Aerosphere Inhaler 5.9 gram IH twice a day Novolog mix 70-30 Flexpen SUCUT daily Novolog mix 70-30 SUBCUT bedtime Victoza 1.2mg SUBCUT daily Nystop 1 application TP twice a day PRN Protonix 40mg PO twice a day Ultram 50mg Po daily Kenalog 0.1% one application TP twice a day ALLERGIES: Epinephrine Metronidazole Naproxen Penicillins Sulfa Sulfamethoxazole Trimethoprim Vancomycin NEW PRESCRIPTIONS: None DIET INSTRUCTIONS: As tolerated. A diet has been ordered for you as outpatient. The project director will call you with an appointment date and time. ACTIVITY: As tolerated. Avoid the heat and humidity outside. SMOKING: N/A DISEASE SPECIFIC EDUCATION: Chest pain Medication Activity Diet including outpatient dietary consult HOSPITAL COURSE: 62 year old white female seen in the office with chest tightness and chest pain. The patient was hospitalized after she did not have any atrial fibrillation. She had sinus rhythm with PAC very infrequent. The patient underwent echo which showed LVH with mild enlargement of the LA cavity. Left ventricle was stiff. Dobutamine stress echo sestamibi negative for ischemia. All the reports discussed with the patient. Diabetes Mellitus complications discussed and advised to have eye check up every yearly by an MD. Also foot care discussed with the patient. The patient's BMI is 43, she is morbidly obese. Weight loss ADA diet discussed. She has an appointment with project director for the diet. She is advised colonoscopy and she is also advised mammogram every years. A1c goal 6-7 discussed. BNP on admission 17, hgb 12.9, hct 38, WBC 9,000 normal differential, creatinine 1.1, BUN 15, potassium 4.3 and glucose 121. CONDITION: STABLE. TIME SPENT: More than 60 minutes. RAMONAD
--- NOTE | 2017-11-17 09:50 | PN ---
11/13/17: Level 5 11/14/17: Intermediate 11/15/17: Intermediate 11/16/17: D as in discharge MTDD
--- NOTE | 2017-11-17 09:55 | PN ---
DATE OF SERVICE: 11/16/17 SUBJECTIVE: The patient was hospitalized with chest pain. REVIEW OF SYSTEMS: CONSTITUTIONAL: No night sweats. No fatigue, malaise, lethargy. No fever or chills. HEENT: Eyes: No visual changes. No eye pain. No eye discharge. ENT: No runny nose. No epistaxis. No sinus pain. No sore throat. No odynophagia. No congestion. RESPIRATORY: No cough, no congestion. No hemoptysis. No shortness of breath. CARDIOVASCULAR: No angina symptoms. No CHF symptoms. No atypical chest pain for CAD. No palpitations. No orthopnea. GASTROINTESTINAL: No abdominal pain. No nausea or vomiting. No diarrhea or constipation. No hematemesis. No hematochezia. GENITOURINARY: No urgency. No frequency. No dysuria. No hematuria. No obstructive symptoms. No discharge. No pain. No significant abnormal bleeding. MUSCULOSKELETAL: No musculoskeletal pain; no joint swelling. NEUROLOGICAL: No headache. No neck pain. No syncope. No seizures. No dizziness. PSYCHIATRIC: Not anxious. No depression. No suicidal thoughts. No homicidal thoughts. SKIN: No rash. No lesions. No wounds. ENDOCRINE: No unexplained weight loss. No weight gain. HEMATOLOGIC/LYMPHATIC: No anemia. No purpura. No petechiae. No prolonged or excessive bleeding. No palpable lymph nodes. PHYSICAL EXAMINATION: GENERAL: The patient is oriented to time, place and person. VITAL SIGNS: Temperature 97.8, pulse 100, respiratory rate 15, blood pressure 115/63 and pulse ox 95%. HEENT: Head normocephalic, atraumatic. Eyes: Extraocular muscles are intact. Pupils are equal, round and reactive to light and accommodation. Ears: No lesions. Nose appeared normal. Throat: No exudate or erythema. NECK: Supple. No JVD, no carotid bruit. No lymphadenopathy or thyromegaly. LUNGS: Clear to auscultation. Percussion note normal. Chest symmetrical. HEART: S1, S2, no S3. No murmurs. No cyanosis or clubbing. No ascites. Pulses: Dorsalis pedis and posterior tibial pulses +1 to +2 both sides. ABDOMEN: Soft. Nontender. Bowel sounds active. No CVA tenderness. No mass felt. EXTREMITIES: No edema. Full range of motion of all extremities, equal. NEUROLOGIC: No focal deficit. Cranial nerves II through XII are grossly intact. No headache, no double vision or headache. SKIN: Not dry. Intact. Turgor - normal. LYMPHATIC: No palpable lymph nodes/no lymphedema. MUSCULOSKELETAL: Normal joints with no swelling. Muscle tone is normal. LABS: hgb 12.9, hct 38, WBC 9,000 normal differential, creatinine 1.1, BUN 15, potassium 4.3 ASSESSMENT: 1. Chest pain seems to be noncardiac. Telemetry did not show any atrial fibrillation. PAC's noted. Echo LVH enlarged LA cavity. Normal LV contractility. The patient has stiff left ventricle. Dobutamine stress echo sestamibi negative for ischemia. CONDITION: Stable. PLAN: 1. CAD risk factors discussed 2. The patient will have shale processing technician to see her to lose weight 3. Counseling for weight loss diet done 4. Diabetes with complications discussed TIME SPENT: More than 30 minutes. Plan and coordination of the patient's care discussed in the presence of nurse. ASTRID
--- NOTE | 2017-11-17 10:41 | PN ---
DATE OF SERVICE: 11/14/17 SUBJECTIVE: 62 year old white female hospitalized with chest pain, shortness of breath. So far the patient has no evidence of acute CT or ischemia. Condition is stable. She will undergo stress echo tomorrow. CONDITION: The patient was seen and examined with Nurse Practitioner. TIME SPENT: More than 30 minutes. Plan and coordination of the patient's care discussed in the presence of nurse. ASTRID
--- NOTE | 2017-11-17 10:46 | ECHO2D ---
Date of Exam: 11/16/17 Ordering Physician: JOYCE MCINTYRE MD Room # : 103 Reason for Echo: SHORT OF BREATH, HYPERTENSION M-Mode Normal Adult Results LV Dimensions Normal Adult Results AoV Opening excursions >1.6 >1.6 LVEDD-base- 3.5-5.8 4.2 Ao root dimensions 2.0-3.7 3.5 LVESD-base- 3.1-4.6 L. Atrium dimensions 1.9-3.8 3.9 Post. Wall thickness 0.8-1.1 1.4 IV septum (thickness) 0.7-1.2 1.4 Post. Wall excursion 0.72-1.3 NORMAL Septal motion NORMAL Systolic motion R. Ventricular cavity 1.5-2.0 NORMAL LVEF 60% 53% Paradoxical septal wall motion NORMAL 2-D : 2-D M Mode Echocardiogram was performed using apical four chamber and left parasternal long and short axis views. Mitral, tricuspid and aortic valves appear to be normal. Contractility of the left ventricle seems to be normal, so is the cavity size. Left atrial cavity size and aortic root appear to be normal. There is no pericardial effusion. There is no thrombus noted in the left ventricular or left aortic cavity. No mitral valve prolapse noted. M-MODE: MV: NORMAL AV: NORMAL TV: NORMAL PV: NORMAL CHAMBER SIZE: NORMAL WALL MOTION: NORMAL PERICARDIUM: NORMAL INTERPRETATION: 1. LEFT VENTRICULAR HYPERTROPHY WITH STIFF LEFT VENTRICLE WITH LVEF 50%-55% 2. NORMAL VALVES 3. NORMAL LEFT VENTRICLE SIZE MTDD
--- NOTE | 2017-11-17 11:01 | ECHOSTRESS ---
Date of Exam: 11/16/17 Ordering Physician: JOYCE MCINTYRE MD Reason for Echo: SHORT OF BREATH, HYPERTENSION, DOBUTAMINE STRESS WITH NO ISCHEMIA M-Mode Normal Adult Results LV Dimensions Normal Adult Results AoV Opening excursions >1.6 LVEDD-base- 3.5-5.8 Ao root dimensions 2.0-3.7 LVESD-base- 3.1-4.6 L. Atrium dimensions 1.9-3.8 Post. Wall thickness 0.8-1.1 IV septum (thickness) 0.7-1.2 Post. Wall excursion 0.72-1.3 Septal motion Systolic motion R. Ventricular cavity 1.5-2.0 LVEF 60% Paradoxical septal wall motion 2-D: NORMAL LEFT VENTRICULAR CONTRACTILITY RESTING AND WITH DOBUTAMINE INFUSION M-MODE: MV: AV: TV: PV: CHAMBER SIZE: WALL MOTION: NORMAL LEFT VENTRICULAR CONTRACTILITY RESTING AND WITH DOBUTAMINE INFUSION PERICARDIUM: INTERPRETATION: 1. NORMAL LEFT VENTRICULAR CONTRACTILITY RESTING AND WITH DOBUTAMINE INFUSION MTDD
--- NOTE | 2017-11-17 12:13 | DOBSTECHST ---
Ordering Physician: JOYCE MCINTYRE MD Date of Test: 11/16/17 Reason for Examination: SHORT OF BREATH, HYPERTENSION Height: 69" Weight: 157 LBS Current Medications: PROTONIX, SYNTHROID, LOPRESSOR, XANAX, GABAPENTIN, TRAMADOL , NOVOLOG, ZESTORETIC, VENTOLIN HFA, BENTYL, NYSTATIN, VICTOZA Target Heart Rate: 133/157 S-T Segment Stage Time HR BPM BP mmhg Rhythm +/- Elevation Depression Comments/ Symptoms Control Sitting 70 116/72 SR X NONE Dobutamine 250mg/D5W 5cmg/KG/mn 10cmg/KG/mn 3:00 82 132/70 SR X NONE 15cmg/KG/mn 2:00 94 SR X NONE 20cmg/KG/mn 2:00 92 140/62 SR X NONE 25cmg/KG/mn 2:00 100 SR X NONE 30cmg/KG/mn 2:00 109 130/58 SR X NONE 35cmg/KG/mn 2:00 126 SR X NONE 40cmg/KG/mn 1:04 126 138/60 Time: 5:00 HR B/P Time: 11:00 HR B/P Time: HR B/P Recovery 96 116/68 Recovery 89 Recovery Total Time: 14:04 Maximum Heart Rate Reached: 126 BPM 97% OXYGEN SATURATION ON ROOM AIR WITH DOBUTAMINE INFUSION Interpretation: 1. NO EVIDENCE OF ISCHEMIA BY ST-T WAVE 2. NO CHEST PAIN OR CHEST DISCOMFORT 3. NORMAL LEFT VENTRICULAR CONTRACTILITY RESTING AND WITH DOBUTAMINE INFUSION SESTAMIBI TO FOLLOW MTDD
--- NOTE | 2017-11-17 14:52 | PN ---
DATE OF SERVICE: 11/14/17 SUBJECTIVE: The patient is examined and she is resting comfortably in her room. She is not having any shortness of breath this morning. Her symptoms seem to be improved. She did have one chest pain, sharp pain in the left breast during the night. Carotid scan from yesterday reviewed was normal. CT of the chest was normal. MRI of the brain was normal. REVIEW OF SYSTEMS: CONSTITUTIONAL: No night sweats. No fatigue, malaise, lethargy. No fever or chills. HEENT: Eyes: No visual changes. No eye pain. No eye discharge. ENT: No runny nose. No epistaxis. No sinus pain. No sore throat. No odynophagia. No congestion. RESPIRATORY: No cough, no congestion. No hemoptysis. No shortness of breath. CARDIOVASCULAR: No angina symptoms. No CHF symptoms. No atypical chest pain for CAD. No palpitations. No orthopnea. Intermittent chest pain. Acid reflux. GASTROINTESTINAL: No abdominal pain. No nausea or vomiting. No diarrhea or constipation. No hematemesis. No hematochezia. GENITOURINARY: No urgency. No frequency. No dysuria. No hematuria. No obstructive symptoms. No discharge. No pain. No significant abnormal bleeding. MUSCULOSKELETAL: No musculoskeletal pain; no joint swelling. NEUROLOGICAL: No headache. No neck pain. No syncope. No seizures. No dizziness. PSYCHIATRIC: Not anxious. No depression. No suicidal thoughts. No homicidal thoughts. SKIN: No rash. No lesions. No wounds. ENDOCRINE: No unexplained weight loss. No weight gain. HEMATOLOGIC/LYMPHATIC: No anemia. No purpura. No petechiae. No prolonged or excessive bleeding. No palpable lymph nodes. PHYSICAL EXAMINATION: HEENT: Head normocephalic, atraumatic. Eyes: Extraocular muscles are intact. Pupils are equal, round and reactive to light and accommodation. Ears: No lesions. Nose appeared normal. Throat: No exudate or erythema. NECK: Supple. No JVD, no carotid bruit. No lymphadenopathy or thyromegaly. LUNGS: Diminished breath sounds bilaterally. Clear to auscultation. Percussion note normal. Chest symmetrical. HEART: S1, S2, no S3. No murmurs. No cyanosis or clubbing. No ascites. Pulses: Dorsalis pedis and posterior tibial pulses +1 to +2 both sides. ABDOMEN: Soft. Nontender. Bowel sounds active. No CVA tenderness. No mass felt. EXTREMITIES: No edema. Full range of motion of all extremities, equal. NEUROLOGIC: No focal deficit. Cranial nerves II through XII are grossly intact. No headache, no double vision or headache. SKIN: Not dry. Intact. Turgor - normal. LYMPHATIC: No palpable lymph nodes/no lymphedema. MUSCULOSKELETAL: Normal joints with no swelling. Muscle tone is normal. ASSESSMENT: 1. Chest pain 2. Shortness of breath seems to be resolved 3. GERD 4. Obesity 5. Diabetes Mellitus type 2 6. Dyslipidemia 7. Hypertension 8. Neuropathy PLAN: 1. Scheduled to have a Dobutamine stress 2. She is supposed to have Telemetry 3. We will continue her home medications. 4. Blood pressure under control at 100/56. Will follow closely. TIME SPENT: More than 30 minutes. Plan and coordination of the patient's care discussed in the presence of nurse. ASTRID
== END 2017-11-16 13:48 | disposition home or self-care (01) | DRG 204 ==
LOC: MEDSURG A 11:35
PROVIDERS: ADMIT Internal Medicine; ATTEND Internal Medicine
DX: R06.00 Dyspnea, unspecified (principal); Z68.41 Body mass index [BMI] 40.0-44.9, adult; I10 Essential (primary) hypertension; K74.60 Unspecified cirrhosis of liver; N18.3 Chronic kidney disease, stage 3 (moderate); E11.9 Type 2 diabetes mellitus without complications; R06.02 Shortness of breath; K57.90 Diverticulosis of intestine, part unspecified, without perforation or abscess without bleeding; K58.9 Irritable bowel syndrome, unspecified; E66.01 Morbid (severe) obesity due to excess calories; E03.9 Hypothyroidism, unspecified; F41.9 Anxiety disorder, unspecified; D64.9 Anemia, unspecified; K21.9 Gastro-esophageal reflux disease without esophagitis; E78.5 Hyperlipidemia, unspecified; J45.909 Unspecified asthma, uncomplicated; M19.90 Unspecified osteoarthritis, unspecified site; E88.81 Metabolic syndrome and other insulin resistance; G62.9 Polyneuropathy, unspecified; Z79.4 Long term (current) use of insulin; Z78.0 Asymptomatic menopausal state
CPT/HCPCS: 36415; 80053; 81001; 82550; 82962; 83880; 84439; 84443; 84484; 85025; 85379; 93005; 93010; 97802

== ENCOUNTER 2018-05-20 09:11 | Outpatient (CLI) | payer OTHER | END 2018-05-20 09:12 | disposition home or self-care (01) | LOC: LAB 09:11 | PROVIDERS: ATTEND Dermatology | DX: L40.0 Psoriasis vulgaris (principal); Z79.899 Other long term (current) drug therapy | CPT/HCPCS: 36415; 80053; 85027; 86803; 87340; 87389 ==

== ENCOUNTER 2018-06-24 12:18 | Outpatient (CLI) ==
[2018-06-24] MEDS ORDERED: ALBUTEROL 0.083% NEB NEB STA (13:00)
== END 2018-06-24 12:19 | disposition home or self-care (01) ==
LOC: CAR 12:18
PROVIDERS: ATTEND Internal Medicine
DX: R06.02 Shortness of breath (principal); Z79.899 Other long term (current) drug therapy; L40.0 Psoriasis vulgaris
CPT/HCPCS: 36415; 80076

== ENCOUNTER 2018-09-16 14:48 | Outpatient (CLI) | END 2018-09-16 14:49 | disposition home or self-care (01) | LOC: LAB 14:48 | PROVIDERS: ATTEND Dermatology | DX: L70.0 Acne vulgaris (principal); Z79.899 Other long term (current) drug therapy | CPT/HCPCS: 36415; 80076 ==

== ENCOUNTER 2018-10-05 07:45 | Outpatient (CLI) ==
--- NOTE | 2018-10-05 09:05 | CT ---
EXAM: CT ABDOMEN AND PELVIS HISTORY: Right flank pain. TECHNIQUE: CT abdomen and pelvis with and without intravenous contrast. Images were reconstructed u sing 5 mm section thickness. Reformations were prepared. 100 ml Visipaque. FINDINGS: Compared to 01/18/2016. The liver has a somewhat of a serrated peripheral margin and the right lobe measures 22 cm in length. The left lobe is relatively small. No focal hepatic lesions are seen. Splenic length is upper hugo it normal at 13 cm. No gallbladder is present. Redemonstration of ectasia of the common bile duct. No intrahepatic biliary dilatation is seen. No pancreatic mass or adrenal nodule. There is no neph rolithiasis or evidence of ureteral calculus. No hydronephrosis or perinephric fat stranding. Gross ly normal enhancement of the renal parenchyma. Moderate atherosclerotic disease. Scattered nonspeci fic periaortic and periportal lymph nodes are stable. Stomach is unremarkable. No appendix is seen. A few scattered colonic diverticula are present. Non obstructive bowel gas pattern. Lobulated uterus suggesting fibroid formation. Urinary bladder is gr ossly unremarkable. There is no ascites. No significant ventral abdominal wall defect. The bones reveal degenerative disc and facet disease a t the lumbosacral junction. Lung bases are clear. There is no pneumoperitoneum identified. IMPRESSION: 1. Kidneys, visualized ureters and urinary bladder appear grossly normal. The uterus is lobulated s uggesting fibroid formation and may place mass effect on the bladder to some degree. 2. Appearance of the liver suggest hepatomegaly and possible early cirrhotic architecture. Splenic length upper limit normal. 3. Stable ectasia of the common bile duct. No intrahepatic biliary dilatation, obvious pancreatic m ass or pancreatic inflammation. No choledocholithiasis. 4. Atherosclerosis. 5. Mild colonic diverticulosis.
--- NOTE | 2018-10-05 11:57 | DEXA ---
EXAM: BONE DENSITOMETRY HISTORY: Post menopausal. FINDINGS: Exam of the lumbar spine was not performed. Exam of the hips revealed a total mean bone mineral density of 1.128 g/cm2. Mean hip T score: 1.0 FRAX WHO Fracture Risk Assessment. Ten year probability of fracture (%). Major Osteoporotic Fracture 9.1% Hip Fracture 0.3%. IMPRESSION: Normal bone density of the hips.
--- NOTE | 2018-10-05 17:04 | MRI ---
EXAM: Cervical spine MRI without contrast. HISTORY: Neck pain. COMPARISON: Cervical spine CT scan 10/17/2017 and cervical spine MRI 08/23/2015. TECHNIQUE: Multiplanar, multisequence MR images were acquired cervical spine without contrast. FINDINGS: The craniocervical junction is normal and the cervical cord has no abnormal T2 hyperintens ities.. The cervical vertebra are normal in height, AP alignment and intrinsic bone marrow signal. There is ventral spondylosis at C5-6 and C6-7. There is desiccation of the cervical intervertebral d iscs. There are no paravertebral masses. Visualized lung apices are clear. C2-3: The intervertebral disc is normal. There is minor right and mild left facet arthropathy and m inor right and mild left neural foraminal stenosis. C3-4: There is a mild spondylotic disc bulge and bony ridging along the midline upper C4 vertebra of the posterior longitudinal ligament insertion. Mild right uncovertebral hypertrophy and mild left a nd minor right facet arthropathy is present. There is a tiny right synovial cyst along the anterior right facet joint. There is no central canal stenosis. There is minor right neural foraminal stenos is. C4-5: There is minor spondylotic disc bulge with endplate osteophytes that effaces the ventral theca l sac without spinal stenosis. Moderate left hypertrophic facet arthropathy is present which causes mild to moderate left neural foraminal stenosis. C5-6: There is a mild right posterior spondylotic disc bulge and bilateral facet arthropathy. There is no central canal stenosis or foraminal stenosis. C6-7: There is a mild spondylotic disc bulge and ligamentum flavum hypertrophy. There is no central canal stenosis or foraminal stenosis. C7-T1: There is a minimal disc bulge, ligamentum flavum hypertrophy and mild right and mild to moder ate left hypertrophic facet arthropathy. There is no central canal stenosis or foraminal stenosis. IMPRESSION: 1. Stable mild lumbar degenerative spondylosis and mild to moderate facet arthropathy compared to th e prior MRI. 2. No cervical disc herniations or central canal stenosis.
--- NOTE | 2018-10-05 17:50 | MRI ---
EXAM: Thoracic spine MRI without contrast. HISTORY: Mid back pain. COMPARISON: Thoracic spine MRI 04/23/2015. TECHNIQUE: Multiplanar, multisequence MR images were acquired of the thoracic spine without contrast . FINDINGS: 12 rib-bearing thoracic vertebra are present. The thoracic cord has normal morphology and no clearly defined T2 hyperintensities. The thoracic vertebra normal in height and intrinsic bone m arrow signal. There is minor mid thoracic dextroscoliosis centered at T7-8 and minor chronic anterio r wedging of a few mid-thoracic vertebra. Small ventral lateral endplate osteophytes are present in the thoracic spine and there is ventral spondylosis at T5-6, T6-7 and T10-11 with minor type 2 endpla te changes. There is desiccation of the thoracic intervertebral discs and there is mild endplate irr egularity in the mid to lower thoracic spine. Small chronic Schmorl's nodes are present from T6 to T 9. Several perineural cysts are present. There are no paravertebral masses. The partially visualiz ed liver, spleen and upper pole of the left kidney are unremarkable. T1-2: There is a mild disc bulge without central canal stenosis. The neural foramina are patent. T2-3: The intervertebral disc is normal. T3-4: There is a minor dorsal spondylotic ridge and mild right hypertrophic facet arthropathy withou t foraminal stenosis. T4-5: There is a mild posterior disc bulge and mild right facet hypertrophy. There is no central ca nal stenosis or foraminal stenosis. T5-6: The intervertebral disc is normal. T6-7: There is a small right paracentral disc osteophyte complex and probable superimposed disc prot rusion that it is associated with mild flattening of the right ventral cord although cerebrospinal fl uid is preserved around the cord. There is no central canal stenosis or foraminal stenosis. T7-8: The intervertebral disc is normal. T8-9: There is a dorsal spondylotic disc bulge and small central disc protrusion and annular tear th at is associated with mild ventral cord flattening. There is no central canal stenosis or foraminal stenosis. T9-10: The intervertebral disc is normal. There is mild bilateral neural foraminal stenosis. A madiha ign intraosseous hemangioma is present at T10. T10-11: There is a minor spondylotic disc bulge and bilateral facet arthropathy with mild to moderat e left and moderate right neural foraminal stenosis. There is no central canal stenosis. T11-12: The intervertebral disc is normal. There is mild right foraminal stenosis. T12-L1: The intervertebral disc is normal. IMPRESSION: 1. No change mild thoracic degenerative spondylosis and facet arthropathy without spinal stenosis. 2. Mild right paracentral disc osteophyte complex T6-7 with probable small superimposed disc protrus ion which is associated with mild right cord flattening although cerebrospinal fluid is preserved campos und the cord. 3. Small central disc herniation T8-9.
== END 2018-10-05 07:46 | disposition home or self-care (01) ==
LOC: RAD 07:45
PROVIDERS: ATTEND Internal Medicine
DX: R10.9 Unspecified abdominal pain (principal); Z78.0 Asymptomatic menopausal state; M54.2 Cervicalgia; M54.9 Dorsalgia, unspecified

== ENCOUNTER 2018-12-03 21:00 | Emergency (ER) | payer OTHER ==
[2018-12-03 21:14] VITALS: TEMP 98.2; BMI 44.0
--- NOTE | 2018-12-03 21:39 | ED.PDOC ---
General ED Provider: Dr. ILEANA SAMPSON-ER Chief Complaint: Palpitations Stated Complaint: i feel my heart is beating funnyt Time Seen by Physician: 21:05 Mode of Arrival: Walk-In Information Source: Patient Exam Limitations: No limitations Primary Care Provider: JOYCE RIVERA Nursing and Triage Documentation Reviewed and Agree: Yes Does patient meet sepsis criteria?: No System Inflammatory Response Syndrome: Not Applicable Sepsis Protocol: For patient's 13 years and over: Temp is 96.8 and below OR 101 and greater Pulse >90 BPM Resp >20/minute Acutely Altered Mental Status Are patient's symptoms suggestive of a new infection, such as: -Pneumonia -Skin, Soft Tissue -Endocarditis -UTI -Bone, Joint Infection -Implantable Device -Acute Abdominal Infection -Wound Infection -Meningitis -Blood Stream Catheter Infection -Unknown Review of Systems - Review Of Systems Constitutional: Reports: No symptoms Eyes: Reports: No symptoms Ears, Nose, Mouth, Throat: Reports: No symptoms Respiratory: Reports: No symptoms Cardiac: Reports: Palpitations GI: Reports: No symptoms : Reports: No symptoms Musculoskeletal: Reports: No symptoms Skin: Reports: No symptoms Neurological: Reports: No symptoms Endocrine: Reports: No symptoms Hematologic/Lymphatic: Reports: No symptoms All Other Systems: Reviewed and Negative Past Medical History - Past Medical History Previously Healthy: Yes Endocrine: Reports: DM 2, Hypothyroid, Dyslipidemia Cardiovascular: Reports: Other (MITRAL VALVE PROLAPSE) Respiratory: Reports: Asthma Hematological: Reports: None Gastrointestinal: Reports: None, Liver, Other (GASTROENTERITIS, IBS) Genitourinary: Reports: CKD Neuro/Psych: Reports: None Musculoskeletal: Reports: Arthritis Cancer: Reports: Other Last Menstrual Period: UNKNOWN Other Pertinent Past Medical History: GASTROENTERITIS, MITRAL VALVE PROLAPSE, IBS - Surgical History General Surgical History: Reports: Tubal ligation (TUBAL LIGATION, OOPHORECTOMY) , Cholecystectomy, Back Surgery (BACK SURGERY IN 2008) - Family History Family History: Reports: Unknown - Social History Smoking Status: Former smoker Hx Substance Use: Yes (STREET DRUGS IN THE PAST) Alcohol Screening: None - Immunizations Tetanus Shot up to Date: No Physical Exam - Physical Exam Appearance: Well-appearing, No pain distress, Well-nourished Eyes: KALYANI, EOMI, Conjunctiva clear ENT: Ears normal, Nose normal, Oropharynx normal Neck: Supple Respiratory: Airway patent, Breath sounds clear, Breath sounds equal, Respirations nonlabored Cardiovascular: RRR, Pulses normal, No rub, No murmur GI/: Soft, Nontender, No masses, Bowel sounds normal, No Organomegaly Musculoskeletal: Normal strength, ROM intact, No edema, No calf tenderness Skin: Warm, Dry, Normal color Neurological: Sensation intact, Motor intact, Reflexes intact, Cranial nerves intact, Alert, Oriented Psychiatric: Affect appropriate, Mood appropriate Interpretation - Radiology Interpretation Radiology Interpretation By: Radiologist Radiology Results: Negative - EKG Interpretation Time of EKG #1: 20:54 Rate: Normal Rhythm: Sinus Ectopy: None [place]: NL ST Segment: Normal Interpretation: nsr Critical Care Note - Critical Care Note Total Time (mins): 0 Course - Course Hematology/Chemistry: 12/03/18 21:41 12/03/18 21:41 Orders, Labs, Meds: Lab Review 12/03/18 12/03/18 12/03/18 21:30 21:30 21:41 WBC 9.52 RBC 4.69 Hgb 14.1 Hct 42.5 MCV 90.6 MCH 30.1 MCHC 33.2 RDW Coeff of Regina 13.2 Plt Count 173 Immature Gran % (Auto) 0.5 Neut % (Auto) 86.5 Lymph % (Auto) 12.0 [place] % (Auto) 0.9 Eos % (Auto) 0.0 Baso % (Auto) 0.1 Immature Gran # (Auto) 0.1 Neut # (Auto) 8.2 H Lymph # (Auto) 1.1 Titus # (Auto) 0.1 L Eos # (Auto) 0.0 Baso # (Auto) 0.0 D-Dimer (Manual) Sodium Potassium Chloride Carbon Dioxide Anion Gap BUN Creatinine Estimated GFR (MDRD) BUN/Creatinine Ratio Glucose Calcium Total Bilirubin AST ALT Alkaline Phosphatase Total Creatine Kinase Troponin I Total Protein Albumin Globulin Albumin/Globulin Ratio TSH Free T4 Urine Color Yellow Urine Clarity Slightly Urine pH 5.5 Ur Specific [place] 1.015 Urine Protein Negative Urine Glucose (UA) 2+ Urine Ketones Trace Urine Blood Negative Urine Nitrite Negative Urine Bilirubin Negative Urine Urobilinogen 0.2 Ur Leukocyte Esterase Negative Urine Opiates Screen Positive Ur Oxycodone Screen Negative Urine Methadone Screen Negative Ur Propoxyphene Screen Negative Ur Barbiturates Screen Negative U Tricyclic Antidepress Negative Ur Phencyclidine Scrn Negative Ur Amphetamine Screen Negative U Methamphetamines Scrn Negative U Benzodiazepines Scrn Positive Urine Cocaine Screen Negative U Cannabinoids Screen Negative 12/03/18 12/03/18 12/03/18 21:41 21:41 21:41 WBC RBC Hgb Hct MCV MCH MCHC RDW Coeff of Regina Plt Count Immature Gran % (Auto) Neut % (Auto) Lymph % (Auto) [place] % (Auto) Eos % (Auto) Baso % (Auto) Immature Gran # (Auto) Neut # (Auto) Lymph # (Auto) Titus # (Auto) Eos # (Auto) Baso # (Auto) D-Dimer (Manual) 2749.43 Sodium 139.2 Potassium 4.40 Chloride 98.1 Carbon Dioxide 23.6 Anion Gap 21.90 BUN 18.1 H Creatinine 1.14 Estimated GFR (MDRD) 48.00 BUN/Creatinine Ratio 15.87 Glucose 352.7 H Calcium 9.16 Total Bilirubin 0.76 AST 52.9 H ALT 40.7 H Alkaline Phosphatase 121.4 Total Creatine Kinase 83.1 Troponin I < 0.012 Total Protein 8.49 H Albumin 4.82 Globulin 3.67 Albumin/Globulin Ratio 1.31 TSH 0.156 L Free T4 1.22 Urine Color Urine Clarity Urine pH Ur Specific [place] Urine Protein Urine Glucose (UA) Urine Ketones Urine Blood Urine Nitrite Urine Bilirubin Urine Urobilinogen Ur Leukocyte Esterase Urine Opiates Screen Ur Oxycodone Screen Urine Methadone Screen Ur Propoxyphene Screen Ur Barbiturates Screen U Tricyclic Antidepress Ur Phencyclidine Scrn Ur Amphetamine Screen U Methamphetamines Scrn U Benzodiazepines Scrn Urine Cocaine Screen U Cannabinoids Screen Orders Category Date Time Status EKG-(ED ONLY) Stat CARDIO 12/03/18 21:23 Completed ED JUNIOR SOFTWARE ENGINEER APPLIED .ONCE EMERGENCY 12/03/18 21:23 Active ED IV/MEDIPORT/POWERPORT .ONCE EMERGENCY 12/03/18 21:23 Active CBC W/ AUTO DIFF Stat LAB 12/03/18 21:41 Completed COMPREHENSIVE METABOLIC PANEL Stat LAB 12/03/18 21:41 Completed CREATINE KINASE Stat LAB 12/03/18 21:41 Completed D-DIMER Stat LAB 12/03/18 21:41 Completed FREE T4 (FREE THYROXINE) Stat LAB 12/03/18 21:41 Completed TROPONIN I Stat LAB 12/03/18 21:41 Completed TSH [THYROID STIMULATING HORMONE] Stat LAB 12/03/18 21:41 Completed URINALYSIS C & S IF INDICATED Stat LAB 12/03/18 21:30 Completed URINE DRUG SCREEN (RAPID FOR ED) [DRUG SCREEN, URINE, LAB 12/03/18 21:30 Completed RAPID] Stat 0.9 % Sodium Chloride [Saline Flush] MEDS 12/03/18 21:23 Discontinued 1 syr IVF PRN PRN Metoprolol Tartrate [Lopressor] MEDS 12/03/18 22:04 Discontinued 5 mg IVP ONCE STA Medications Discontinued Medications Generic Name Dose Route Start Last Admin Trade Name Freq PRN Reason Stop Dose Admin Metoprolol Tartrate 5 mg 12/03/18 22:04 12/03/18 22:15 Lopressor IVP 12/03/18 22:05 5 mg ONCE STA Administration Sodium Chloride 1 syr 12/03/18 21:23 12/03/18 22:15 Saline Flush IVF 1 syr PRN PRN Administration To flush IV Vital Signs: Temp Pulse Resp BP Pulse Ox 12/03/18 23:02 82 22 137/89 95 12/03/18 21:57 93 H 22 153/90 H 95 12/03/18 21:01 98.2 F 112 H 24 181/78 H 96 Departure - Departure Time of Disposition: 20:54 Disposition: HOME SELF-CARE Discharge Problem: Palpitations Instructions: Heart Palpitations (ED) Condition: Good Pt referred to PMD for follow-up: Yes IPMP verified?: No Additional Instructions: f/u with dr rivera and return prn Allergies/Adverse Reactions: Allergies epinephrine Adverse Reaction (Mild, Verified 12/03/18 21:18) PT STATES SHE HAD A LOCAL REACTION WHERE THE INJECTION WAS IN THE 80'S metronidazole [From Flagyl] Adverse Reaction (Verified 12/03/18 21:18) Diarrhea naproxen [From Naprosyn] Adverse Reaction (Verified 12/03/18 21:18) Vomiting Penicillins Adverse Reaction (Verified 12/03/18 21:18) Hives Sulfa (Sulfonamide Antibiotics) Adverse Reaction (Verified 12/03/18 21:18) Hives sulfamethoxazole [From Bactrim] Adverse Reaction (Verified 12/03/18 21:18) Hives trimethoprim [From Bactrim] Adverse Reaction (Verified 12/03/18 21:18) vancomycin Adverse Reaction (Verified 12/03/18 21:18) "EXCESSIVE BLURRED VISION" Home Medications: Ambulatory Orders Levothyroxine Sodium [Synthroid] 75 mcg PO QDAC 11/12/12 Pantoprazole Sodium [Protonix] 40 mg PO BID 11/12/12 Alprazolam [Xanax] 0.5 mg PO TID PRN 04/21/14 Metoprolol Tartrate [Lopressor] 50 mg PO BEDTIME 04/21/14 Gabapentin 600 mg PO DAILY 07/07/15 Albuterol Sulfate [Ventolin Hfa] 18 gm IH Q6H PRN 04/15/17 Hydrocodone Bit/Acetaminophen [[place] 7.5-325] 1 tab PO TID 04/15/17 Insulin Aspart Prot/Insuln Asp [Novolog Mix 70-30 Flexpen Syrn] 94 unit SQ QAM PRN 04/15/17 Lisinopril/Hydrochlorothiazide [Zestoretic 20-12.5 mg Tab] 2 tab PO DAILY Dicyclomine HCl [Bentyl] 10 mg PO DIRECTED PRN 08/15/17 Gabapentin 1,200 mg PO BEDTIME 11/13/17 Glycopyrrolate/Formoterol Fum [Bevespi Aerosphere Inhaler] 2 inh IH BID Hydroxyzine HCl 25 mg PO TID PRN 11/13/17 Insulin Aspart Prot/Insuln Asp [Novolog Mix 70-30 Flexpen Syrn] 85 unit SQ 1200 PRN 11/13/17 Insulin Aspart Prot/Insuln Asp [Novolog Mix 70-30 Flexpen Syrn] 97 unit SQ BEDTIME PRN 11/13/17 Liraglutide [Victoza 2-Everett] 1.2 mg SUBCUT DAILY 11/13/17 Nystatin [Nystop Powder] 1 applic TP BID PRN 11/13/17 Adalimumab [Humira(Cf) Pen [id number]-[id number] Hs] 1 each SQ DIRECTED 12/03/18 Ketoconazole 1 applic TP BID 12/03/18 Disposition Discussed With: Patient
[2018-12-03] MEDS ORDERED: LOPRESSOR IVP STA (22:04)
[2018-12-03 23:03] VITALS: BP 137/89
--- NOTE | 2018-12-03 23:15 | ED.PDOC ---
General ED Provider: Dr. ILEANA SAMPSON-ER Chief Complaint: Palpitations Stated Complaint: i had a steroid shot today and its making my heart race and i feel flushed Time Seen by Physician: 21:05 Mode of Arrival: Walk-In Information Source: Patient Exam Limitations: No limitations Primary Care Provider: JOYCE RIVERA Nursing and Triage Documentation Reviewed and Agree: Yes Does patient meet sepsis criteria?: No System Inflammatory Response Syndrome: Not Applicable Sepsis Protocol: For patient's 13 years and over: Temp is 96.8 and below OR 101 and greater Pulse >90 BPM Resp >20/minute Acutely Altered Mental Status Are patient's symptoms suggestive of a new infection, such as: -Pneumonia -Skin, Soft Tissue -Endocarditis -UTI -Bone, Joint Infection -Implantable Device -Acute Abdominal Infection -Wound Infection -Meningitis -Blood Stream Catheter Infection -Unknown Cardiovascular Complaint Exam - Palpitations Complaint/Exam Onset/Duration: today Symptoms Are: Still present Timing: Constant Initial Severity: Mild Current Severity: Mild Character: Reports: Fast, Pounding Aggravating: Reports: Medications Alleviating: Reports: None Associated Signs and Symptoms: Denies: Lightheadedness, Dizziness, Syncope, Chest pain, Shortness of breath, Diaphoresis, Nausea, Vomiting Thyroid Exam: Normal Differential Diagnoses: Other Quality Indicator For Non-Traumatic Chest Pain/Syncope: EKG Performed Review of Systems - Review Of Systems Constitutional: Reports: No symptoms Eyes: Reports: No symptoms Ears, Nose, Mouth, Throat: Reports: No symptoms Respiratory: Reports: No symptoms Cardiac: Reports: Palpitations GI: Reports: No symptoms : Reports: No symptoms Musculoskeletal: Reports: No symptoms Skin: Reports: No symptoms Neurological: Reports: No symptoms Endocrine: Reports: No symptoms Hematologic/Lymphatic: Reports: No symptoms All Other Systems: Reviewed and Negative Past Medical History - Past Medical History Previously Healthy: Yes Endocrine: Reports: DM 2, Hypothyroid, Dyslipidemia Cardiovascular: Reports: Other (MITRAL VALVE PROLAPSE) Respiratory: Reports: Asthma Hematological: Reports: None Gastrointestinal: Reports: None, Liver, Other (GASTROENTERITIS, IBS) Genitourinary: Reports: CKD Neuro/Psych: Reports: None Musculoskeletal: Reports: Arthritis Cancer: Reports: Other Last Menstrual Period: UNKNOWN Other Pertinent Past Medical History: GASTROENTERITIS, MITRAL VALVE PROLAPSE, IBS - Surgical History General Surgical History: Reports: Tubal ligation (TUBAL LIGATION, OOPHORECTOMY) , Cholecystectomy, Back Surgery (BACK SURGERY IN 2008) - Family History Family History: Reports: Unknown - Social History Smoking Status: Former smoker Hx Substance Use: Yes (STREET DRUGS IN THE PAST) Alcohol Screening: None - Immunizations Tetanus Shot up to Date: No Physical Exam - Physical Exam Appearance: Well-appearing, No pain distress, Well-nourished Eyes: KALYANI, EOMI, Conjunctiva clear ENT: Ears normal, Nose normal, Oropharynx normal Neck: Supple Respiratory: Airway patent, Breath sounds clear, Breath sounds equal, Respirations nonlabored Cardiovascular: Tachycardia GI/: Soft, Nontender, No masses, Bowel sounds normal, No Organomegaly Musculoskeletal: Normal strength Skin: Warm, Dry, Normal color Neurological: Sensation intact, Motor intact, Reflexes intact, Cranial nerves intact, Alert, Oriented Psychiatric: Affect appropriate, Mood appropriate Interpretation - EKG Interpretation Time of EKG #1: 23:15 Rate: Normal Rhythm: Sinus Ectopy: None [place]: NL ST Segment: Normal Interpretation: nsr Re-Evaluation - Re-Evaluation Time of Re-Evaluation: 23:15 Status: Improved Vital Signs Stable: Yes Pain Level: 0 Appearance: NAD Lungs: Clear Skin: Warm and Dry Neuro: Alert and Oriented X3 CV: RRR Additional Comments: palpitations resolved---denies any cp or dyspnea Critical Care Note - Critical Care Note Total Time (mins): 30 Course - Course Hematology/Chemistry: 12/03/18 21:41 12/03/18 21:41 Orders, Labs, Meds: Lab Review 12/03/18 12/03/18 12/03/18 21:30 21:30 21:41 WBC 9.52 RBC 4.69 Hgb 14.1 Hct 42.5 MCV 90.6 MCH 30.1 MCHC 33.2 RDW Coeff of [place] 13.2 Plt Count 173 Immature Gran % (Auto) 0.5 Neut % (Auto) 86.5 Lymph % (Auto) 12.0 [place] % (Auto) 0.9 Eos % (Auto) 0.0 Baso % (Auto) 0.1 Immature Gran # (Auto) 0.1 Neut # (Auto) 8.2 H Lymph # (Auto) 1.1 [place] # (Auto) 0.1 L Eos # (Auto) 0.0 Baso # (Auto) 0.0 D-Dimer (Manual) Sodium Potassium Chloride Carbon Dioxide Anion Gap BUN Creatinine Estimated GFR (MDRD) BUN/Creatinine Ratio Glucose Calcium Total Bilirubin AST ALT Alkaline Phosphatase Total Creatine Kinase Troponin I Total Protein Albumin Globulin Albumin/Globulin Ratio TSH Free T4 Urine Color Yellow Urine Clarity Slightly Urine pH 5.5 Ur Specific [place] 1.015 Urine Protein Negative Urine Glucose (UA) 2+ Urine Ketones Trace Urine Blood Negative Urine Nitrite Negative Urine Bilirubin Negative Urine Urobilinogen 0.2 Ur Leukocyte Esterase Negative Urine Opiates Screen Positive Ur Oxycodone Screen Negative Urine Methadone Screen Negative Ur Propoxyphene Screen Negative Ur Barbiturates Screen Negative U Tricyclic Antidepress Negative Ur Phencyclidine Scrn Negative Ur Amphetamine Screen Negative U Methamphetamines Scrn Negative U Benzodiazepines Scrn Positive Urine Cocaine Screen Negative U Cannabinoids Screen Negative 12/03/18 12/03/18 12/03/18 21:41 21:41 21:41 WBC RBC Hgb Hct MCV MCH MCHC RDW Coeff of Regina Plt Count Immature Gran % (Auto) Neut % (Auto) Lymph % (Auto) [place] % (Auto) Eos % (Auto) Baso % (Auto) Immature Gran # (Auto) Neut # (Auto) Lymph # (Auto) [place] # (Auto) Eos # (Auto) Baso # (Auto) D-Dimer (Manual) 2749.43 Sodium 139.2 Potassium 4.40 Chloride 98.1 Carbon Dioxide 23.6 Anion Gap 21.90 BUN 18.1 H Creatinine 1.14 Estimated GFR (MDRD) 48.00 BUN/Creatinine Ratio 15.87 Glucose 352.7 H Calcium 9.16 Total Bilirubin 0.76 AST 52.9 H ALT 40.7 H Alkaline Phosphatase 121.4 Total Creatine Kinase 83.1 Troponin I < 0.012 Total Protein 8.49 H Albumin 4.82 Globulin 3.67 Albumin/Globulin Ratio 1.31 TSH 0.156 L Free T4 1.22 Urine Color Urine Clarity Urine pH Ur Specific [place] Urine Protein Urine Glucose (UA) Urine Ketones Urine Blood Urine Nitrite Urine Bilirubin Urine Urobilinogen Ur Leukocyte Esterase Urine Opiates Screen Ur Oxycodone Screen Urine Methadone Screen Ur Propoxyphene Screen Ur Barbiturates Screen U Tricyclic Antidepress Ur Phencyclidine Scrn Ur Amphetamine Screen U Methamphetamines Scrn U Benzodiazepines Scrn Urine Cocaine Screen U Cannabinoids Screen Orders Category Date Time Status EKG-(ED ONLY) Stat CARDIO 12/03/18 21:23 Ordered ED LINEMAN A CLASS APPLIED .ONCE EMERGENCY 12/03/18 21:23 Active ED IV/MEDIPORT/POWERPORT .ONCE EMERGENCY 12/03/18 21:23 Active CBC W/ AUTO DIFF Stat LAB 12/03/18 21:41 Completed COMPREHENSIVE METABOLIC PANEL Stat LAB 12/03/18 21:41 Completed CREATINE KINASE Stat LAB 12/03/18 21:41 Completed D-DIMER Stat LAB 12/03/18 21:41 Completed FREE T4 (FREE THYROXINE) Stat LAB 12/03/18 21:41 Completed TROPONIN I Stat LAB 12/03/18 21:41 Completed TSH [THYROID STIMULATING HORMONE] Stat LAB 12/03/18 21:41 Completed URINALYSIS C & S IF INDICATED Stat LAB 12/03/18 21:30 Completed URINE DRUG SCREEN (RAPID FOR ED) [DRUG SCREEN, URINE, LAB 12/03/18 21:30 Completed RAPID] Stat 0.9 % Sodium Chloride [Saline Flush] MEDS 12/03/18 21:23 Active 1 syr IVF PRN PRN Metoprolol Tartrate [Lopressor] MEDS 12/03/18 22:04 Discontinued 5 mg IVP ONCE STA Medications Generic Name Dose Route Start Last Admin Trade Name Freq PRN Reason Stop Dose Admin Sodium Chloride 1 syr 12/03/18 21:23 12/03/18 22:15 Saline Flush IVF 1 syr PRN PRN Administration To flush IV Discontinued Medications Generic Name Dose Route Start Last Admin Trade Name Freq PRN Reason Stop Dose Admin Metoprolol Tartrate 5 mg 12/03/18 22:04 12/03/18 22:15 Lopressor IVP 12/03/18 22:05 5 mg ONCE STA Administration i had long discussion with ms goetz regarding her positive d dimer test--she declines ct scan due to her ckd and the dye involved and since she feels much better--she understands could mean dvt or PE and failure to detect could mean or injury but she still declines and she is feeling much better Vital Signs: Temp Pulse Resp BP Pulse Ox 12/03/18 23:02 82 22 137/89 95 12/03/18 21:57 93 H 22 153/90 H 95 12/03/18 21:01 98.2 F 112 H 24 181/78 H 96 AGATA Risk Score AGATA Risk Score: Risk Score Odds of by 30D 0 0.1 (0.1-0.2) 1 0.3 (0.2-0.3) 2 0.4 (0.3-0.5) 3 0.7 (0.6-0.9) 4 1.2 (1.0-1.5) 5 2.2 (1.9-2.6) 6 3.0 (2.5-3.6) 7 4.8 (3.8-6.1) Departure - Departure Time of Disposition: 23:18 Disposition: HOME SELF-CARE Discharge Problem: Palpitations Instructions: Heart Palpitations (ED) Condition: Good Pt referred to PMD for follow-up: Yes IPMP verified?: No Additional Instructions: f/u with dr rivera and return prn Allergies/Adverse Reactions: Allergies epinephrine Adverse Reaction (Mild, Verified 12/03/18 21:18) PT STATES SHE HAD A LOCAL REACTION WHERE THE INJECTION WAS IN THE 80'S metronidazole [From Flagyl] Adverse Reaction (Verified 12/03/18 21:18) Diarrhea naproxen [From Naprosyn] Adverse Reaction (Verified 12/03/18 21:18) Vomiting Penicillins Adverse Reaction (Verified 12/03/18 21:18) Hives Sulfa (Sulfonamide Antibiotics) Adverse Reaction (Verified 12/03/18 21:18) Hives sulfamethoxazole [From Bactrim] Adverse Reaction (Verified 12/03/18 21:18) Hives trimethoprim [From Bactrim] Adverse Reaction (Verified 12/03/18 21:18) vancomycin Adverse Reaction (Verified 12/03/18 21:18) "EXCESSIVE BLURRED VISION" Home Medications: Ambulatory Orders Levothyroxine Sodium [Synthroid] 75 mcg PO QDAC 11/12/12 Pantoprazole Sodium [Protonix] 40 mg PO BID 11/12/12 Alprazolam [Xanax] 0.5 mg PO TID PRN 04/21/14 Metoprolol Tartrate [Lopressor] 50 mg PO BEDTIME 04/21/14 Gabapentin 600 mg PO DAILY 07/07/15 Albuterol Sulfate [Ventolin Hfa] 18 gm IH Q6H PRN 04/15/17 Hydrocodone Bit/Acetaminophen [[place] 7.5-325] 1 tab PO TID 04/15/17 Insulin Aspart Prot/Insuln Asp [Novolog Mix 70-30 Flexpen Syrn] 94 unit SQ QAM PRN 04/15/17 Lisinopril/Hydrochlorothiazide [Zestoretic 20-12.5 mg Tab] 2 tab PO DAILY Dicyclomine HCl [Bentyl] 10 mg PO DIRECTED PRN 08/15/17 Gabapentin 1,200 mg PO BEDTIME 11/13/17 Glycopyrrolate/Formoterol Fum [Bevespi Aerosphere Inhaler] 2 inh IH BID Hydroxyzine HCl 25 mg PO TID PRN 11/13/17 Insulin Aspart Prot/Insuln Asp [Novolog Mix 70-30 Flexpen Syrn] 85 unit SQ 1200 PRN 11/13/17 Insulin Aspart Prot/Insuln Asp [Novolog Mix 70-30 Flexpen Syrn] 97 unit SQ BEDTIME PRN 11/13/17 Liraglutide [Victoza 2-[place]] 1.2 mg SUBCUT DAILY 11/13/17 Nystatin [Nystop Powder] 1 applic TP BID PRN 11/13/17 Adalimumab [Humira(Cf) Pen Lipk-[id number]-Zboe Hs] 1 each SQ DIRECTED 12/03/18 Ketoconazole 1 applic TP BID 12/03/18 Disposition Discussed With: Patient
== END 2018-12-03 23:29 | disposition home or self-care (01) ==
LOC: ED 21:00
DX: R00.2 Palpitations (principal); E11.9 Type 2 diabetes mellitus without complications; E03.9 Hypothyroidism, unspecified; E78.5 Hyperlipidemia, unspecified; N18.9 Chronic kidney disease, unspecified; Z95.2 Presence of prosthetic heart valve; Z87.19 Personal history of other diseases of the digestive system; R79.89 Other specified abnormal findings of blood chemistry; Z79.899 Other long term (current) drug therapy; Z79.4 Long term (current) use of insulin
CPT/HCPCS: 36415; 80053; 80306; 81001; 82550; 84439; 84443; 84484; 85025; 85379; 93005; 93010; 96374; 96375; 99284

== ENCOUNTER 2018-12-09 09:00 | Outpatient (RCR) | payer OTHER | END 2019-01-08 23:59 | LOC: NEWBEG 09:00 | PROVIDERS: ATTEND Psychiatry & Neurology Psychiatry | DX: F33.0 Major depressive disorder, recurrent, mild (principal) ==

== ENCOUNTER 2019-06-30 11:19 | Inpatient (IN) ==
--- NOTE | 2019-06-30 11:40 | ED.PDOC ---
General ED Provider: Dr. CAPRICE BERNAL Chief Complaint: Chest Pain Stated Complaint: Sub clavicular pain - started yesterday about 10 AM - had been up about 3 hours - did not wake her up. Had D&C on Thursday and had no difficulty with that procedure and does not think it relates to the Chest Pain - which is a heaviness. Time Seen by Physician: 11:50 Mode of Arrival: Walk-In Information Source: Patient Primary Care Provider: JOYCE MCINTYRE Nursing and Triage Documentation Reviewed and Agree: Yes Does patient meet sepsis criteria?: No System Inflammatory Response Syndrome: Not Applicable Sepsis Protocol: For patient's 13 years and over: Temp is 96.8 and below OR 101 and greater Pulse >90 BPM Resp >20/minute Acutely Altered Mental Status Are patient's symptoms suggestive of a new infection, such as: -Pneumonia -Skin, Soft Tissue -Endocarditis -UTI -Bone, Joint Infection -Implantable Device -Acute Abdominal Infection -Wound Infection -Meningitis -Blood Stream Catheter Infection -Unknown Review of Systems Review Of Systems Constitutional: Reports No symptoms Eyes: Reports No symptoms Ears, Nose, Mouth, Throat: Reports No symptoms Respiratory: Reports No symptoms; Denies Cough, Orthopnea and Short of air Cardiac: Reports Chest pain (Left sub clavicular - heaviness) GI: Reports No symptoms; Denies Nausea and Vomiting Musculoskeletal: Reports No symptoms Skin: Reports No symptoms Neurological: Reports No symptoms All Other Systems: Reviewed and Negative [facility] Medical History Anaphylaxis Anxiety Chest pain Cholecystectomy planned (Acute) Chronic arthritis Diverticulitis Fatty liver Folliculitis H/O tubal ligation (Acute) History of back surgery (Acute) History of gastroesophageal reflux (GERD) Hyperlipidemia Hypertension Hyperthyroidism Insulin dependent type 1 diabetes mellitus Irritable bowel syndrome Mitral valve prolapse Psoriasis Family History FATHER Melanocarcinoma FATHER Hypertension MATERNAL GRANDMOTHER No problems noted. Mother Hypertension Social History Smoking and tobacco status: Former smoker Female Reproductive History Menstrual Hx Hysterectomy: No Hx Tubal Ligation: Yes Physical Exam Physical Exam Appearance: Reports Well-appearing Ill-appearing: None Pain Distress: None Eyes: Reports KALYANI and EOMI ENT: Reports Oropharynx normal Neck: Supple Respiratory: Reports Airway patent, Breath sounds clear and Breath sounds equal Cardiovascular: Reports RRR and Pulses normal GI/: Reports Soft, Nontender and No masses Musculoskeletal: Reports Normal strength, ROM intact and No edema Skin: Reports Warm, Dry and Normal color Neurological: Reports Sensation intact, Motor intact, Alert and Oriented Psychiatric: Reports Affect appropriate and Mood appropriate Interpretation Radiology Interpretation Radiology Interpretation By: Radiologist Radiology Results: Negative Exam Interpreted: Portable CXR Certified Income Tax Preparer Time of Certified Income Tax Preparer Interpretation: 11:55 Rate: Normal Rhythm: Sinus Ectopy: PVCs (occasional) EKG Interpretation Time of EKG #1: 11:59 Rate: Normal Rhythm: Sinus Ectopy: PVCs (occasional) ST Segment: Normal Interpretation: No apparent acute changes Re-Evaluation Re-Evaluation Time of Re-Evaluation: 13:45 Status: Unchanged Appearance: NAD Lungs: Clear Skin: Warm and Dry Neuro: Alert and Oriented X3 Critical Care Note Critical Care Note Total Time (mins): 35 Comments: Review of patient cardiac history, presentation today, labs, radiology; discussion with PCP and decision to admit Course Course Hematology/Chemistry: 07/01/19 04:10 07/01/19 04:10 Orders, Labs, Meds: Lab Review 06/30/19 06/30/19 06/30/19 12:05 12:05 12:20 WBC 14.57 H RBC 4.04 L Hgb 12.3 Hct 36.6 L MCV 90.6 MCH 30.4 MCHC 33.6 RDW Coeff of [place] 13.5 Plt Count 147 Immature Gran % (Auto) 0.5 Neut % (Auto) 67.6 Lymph % (Auto) 25.1 [place] % (Auto) 6.0 Eos % (Auto) 0.4 Baso % (Auto) 0.4 Immature Gran # (Auto) 0.1 Neut # (Auto) 9.9 H Lymph # (Auto) 3.7 H [place] # (Auto) 0.9 Eos # (Auto) 0.1 Baso # (Auto) 0.1 Sodium 139.8 Potassium 4.02 Chloride 102.9 Carbon Dioxide 27.8 Anion Gap 13.12 BUN 27.4 H Creatinine 1.22 Estimated GFR (MDRD) 44.00 BUN/Creatinine Ratio 22.45 Glucose 57.1 L Calcium 9.17 Total Bilirubin 0.30 AST 29.3 ALT 22.9 Alkaline Phosphatase 91.5 Troponin I < 0.012 Total Protein 7.14 Albumin 4.13 Globulin 3.01 Albumin/Globulin Ratio 1.37 Urine Color Yellow Urine Clarity Clear Urine pH 6.5 Ur Specific [place] 1.010 Urine Protein Negative Urine Glucose (UA) Negative Urine Ketones Negative Urine Blood Trace-lysed Urine Nitrite Negative Urine Bilirubin Negative Urine Urobilinogen 0.2 Ur Leukocyte Esterase Negative Urine Microscopic RBC 2-5 Urine Microscopic WBC 0-2 Ur Squamous Epith Cells 2-5 Orders Category Date Time Status ADMIT PATIENT INPATIENT .TO MED[facility] (MONITORED BED) ADMISSION 06/30/19 14:10 Active EKG-(ED ONLY) Stat CARDIO 06/30/19 11:38 Completed EKG-(IP & OP ONLY) DAILY CARDIO 07/01/19 06:00 Completed EKG-(IP & OP ONLY) DAILY CARDIO 07/02/19 06:00 Ordered ACTIVITY .BR with BRP CARE 06/30/19 14:09 Active BLOOD GLUCOSE MONITORING 0630,1100,1700,2100 CARE 06/30/19 14:11 Active GIVE HS SNACK 2100 CARE 06/30/19 14:11 Active INTAKE & OUTPUT Q8HR CARE 06/30/19 14:09 Active TELEMETRY MONITORING TELE CARE 06/30/19 14:11 Active VITAL SIGNS Q8HR CARE 06/30/19 14:09 Active ADA 1800 NICOL. DIET DIETARY 06/30/19 Dinner Ordered HS SNACK DIETARY 06/30/19 Dinner Ordered CBC W/ AUTO DIFF DAILY@0600 LAB 07/01/19 04:10 Completed CBC W/ AUTO DIFF DAILY@0600 LAB 07/02/19 06:00 Ordered CBC W/ AUTO DIFF Stat LAB 06/30/19 12:05 Completed COMPREHENSIVE METABOLIC PANEL DAILY@0600 LAB 07/02/19 06:00 Ordered COMPREHENSIVE METABOLIC PANEL Stat LAB 06/30/19 12:05 Completed CREATINE KINASE Q8H LAB 06/30/19 20:15 Completed CREATINE KINASE Q8H LAB 07/01/19 04:10 Completed TROPONIN I Q8H LAB 06/30/19 20:15 Completed TROPONIN I Q8H LAB 07/01/19 04:10 Completed TROPONIN I Stat LAB 06/30/19 12:05 Completed URINALYSIS C & S IF INDICATED Stat LAB 06/30/19 12:20 Completed RESUSCITATION STATUS Routine OTHERS 06/30/19 14:09 Ordered CHEST, 1V AP ONLY Stat RADS 06/30/19 11:38 Completed Medications Generic Name Dose Route Start Last Admin Trade Name Freq PRN Reason Stop Dose Admin Hydrocodone Bitart/Acetaminophen 1 tab 06/30/19 15:00 06/30/19 20:37 Scott 7.5-325 PO 1 tab TID GIANLUCA Administration Albuterol Sulfate 2 puff 06/30/19 14:31 Proair Hfa IH Q6H PRN Bronchospasm Alprazolam 0.5 mg 06/30/19 14:31 Xanax PO TID PRN Anxiety Dicyclomine HCl 10 mg 06/30/19 15:53 Bentyl PO DAILY PRN IRRITABLE BOWEL Gabapentin 600 mg 06/30/19 15:00 06/30/19 20:37 Neurontin PO 600 mg TID GIANLUCA Administration Lisinopril/HCTZ 2 tab 07/01/19 09:00 Zestoretic 20-12.5 Mg Tab PO DAILY GIANLUCA Hydroxyzine HCl 25 mg 06/30/19 14:31 Atarax PO TID PRN Rash Insulin Lispro Protam/Lispro Human 97 unit 06/30/19 17:00 Humalog Mix 75-25 SUBCUT BEDTIME PRN HYPERGLYCEMIA Insulin Lispro Protam/Lispro Human 85 unit 06/30/19 16:48 Humalog Mix 75-25 SUBCUT 1200 PRN HYPERGLYCEMIA Insulin Lispro Protam/Lispro Human 94 unit 06/30/19 16:49 Humalog Mix 75-25 SUBCUT QAM PRN HYPERGLYCEMIA Levothyroxine Sodium 75 mcg 07/01/19 06:30 07/01/19 06:02 Synthroid PO 75 mcg QDAC GIANLUCA Administration Metoprolol Tartrate 50 mg 06/30/19 21:00 06/30/19 20:37 Lopressor PO 50 mg BEDTIME GIANLUCA Administration Miconazole Nitrate 1 applic 06/30/19 16:00 Micatin TP BID PRN REDNESS/IRRITATION Non-Formulary Medication 2 inh 06/30/19 21:00 Glycopyrrolate-Formoterol IH BID GIANLUCA Non-Formulary Medication 1.2 mg 07/01/19 12:00 Liraglutide SUBCUT 1200 GIANLUCA Nystatin 1 applic 06/30/19 14:31 Nystop Powder TP BID PRN Rash Pantoprazole Sodium 40 mg 06/30/19 21:00 06/30/19 20:37 Protonix PO 40 mg BEDTIME GIANLUCA Administration Sodium Chloride 1 syr 06/30/19 21:00 07/01/19 06:03 Saline Flush IVF 1 syr Q8HR GIANLUCA Administration Discontinued Medications Generic Name Dose Route Start Last Admin Trade Name Freq PRN Reason Stop Dose Admin Insulin Lispro Protam/Lispro Human 97 unit 06/30/19 15:55 Humalog Mix 75-25 SUBCUT BEDTIME PRN HYPERGLYCEMIA Miconazole Nitrate 1 applic 06/30/19 15:53 Micatin TP BID PRN REDNESS/IRRITATION Non-Formulary Medication 1.2 mg 07/01/19 09:00 Liraglutide [Victoza 2-[place]] SUBCUT DAILY GIANLUCA Vital Signs: Temp Pulse Resp BP Pulse Ox 06/30/19 11:19 97.5 F L 74 20 150/92 H 97 AGATA Risk Score AGATA Risk Score: Risk Score Odds of by 30D 0 0.1 (0.1-0.2) 1 0.3 (0.2-0.3) 2 0.4 (0.3-0.5) 3 0.7 (0.6-0.9) 4 1.2 (1.0-1.5) 5 2.2 (1.9-2.6) 6 3.0 (2.5-3.6) 7 4.8 (3.8-6.1) Discharge Plan Discharge Patient Disposition: ADMITTED INPATIENT Discharge Problem: Chest pain Qualifiers: Chest pain type: unspecified Qualified Code(s): R07.9 - Chest pain, unspecified ED Provider: CAPRICE BERNAL Condition: Stable Discharge Date/Time: 06/30/19 14:50
[2019-06-30 12:12] LABS: HEMATOCRIT 36.6 % (37.0-47.0)
--- NOTE | 2019-06-30 12:14 | DI ---
EXAM: Single view of the chest. History: Chest pain. Comparison: Chest radiograph 07/04/2016 Findings: Heart is mildly enlarged. No focal consolidation. No appreciable pleural fluid and no pn eumothorax. No acute osseous abnormalities. Atherosclerotic vascular calcifications. Impression: Mild cardiomegaly without acute disease in the chest
[2019-06-30] MEDS ORDERED: XANAX PO PRN (14:31)
[2019-06-30] MEDS ORDERED: PROAIR HFA (SINGLE PATIENT USE) IH PRN (14:31)
[2019-06-30] MEDS ORDERED: NYSTOP POWDER TP PRN (14:31)
[2019-06-30] MEDS ORDERED: ATARAX PO PRN (14:31)
[2019-06-30] MEDS ORDERED: ADALIMUMAB SUBCUT SCH (14:45)
[2019-06-30 15:18] VITALS: BMI 44.0
[2019-06-30] MEDS: NEURONTIN PO SCH ×2 (15:40→20:37)
[2019-06-30] MEDS: NORCO 7.5-325 PO SCH ×2 (15:40→20:37)
[2019-06-30] MEDS ORDERED: MICATIN TP PRN ×2 (15:53→16:00)
[2019-06-30] MEDS ORDERED: BENTYL PO PRN (15:53)
[2019-06-30] MEDS ORDERED: HUMALOG MIX 75-25 SUBCUT PRN ×4 (15:55→17:00)
[2019-06-30] MEDS ORDERED: LOPRESSOR PO SCH (21:00)
[2019-06-30] MEDS ORDERED: BIAXIN PO SCH (21:00)
[2019-06-30] MEDS ORDERED: PROTONIX PO SCH (21:00)
[2019-06-30] MEDS ORDERED: GLYCOPYRROLATE FORMOTEROL IH SCH ×2 (21:00)
[2019-06-30] MEDS ORDERED: KETOCONAZOLE TP SCH (21:00)
[2019-07-01 04:19] LABS: HEMATOCRIT 34.6 % (37.0-47.0)
[2019-07-01 05:13] VITALS: TEMP 97.8
[2019-07-01] MEDS ORDERED: SYNTHROID PO SCH (06:30)
[2019-07-01] MEDS ORDERED: HUMALOG MIX 75-25 SUBCUT PRN ×2 (08:24→08:30)
[2019-07-01] MEDS ORDERED: ZESTORETIC 20-12.5 MG TAB PO SCH (09:00)
[2019-07-01] MEDS ORDERED: NON-FORMULARY MEDICATION (Liraglutide [Victoza 2-Pak] 1.2 MG) SUBCUT SCH (09:00)
[2019-07-01] MEDS: NEURONTIN PO SCH ×2 (09:23→15:59)
[2019-07-01] MEDS: NORCO 7.5-325 PO SCH ×2 (09:23→15:58)
--- NOTE | 2019-07-01 09:41 | PCM.PROG ---
Attending Provider: ATTENDING PROVIDER: Dr. JOYCE MCINTYRE DATE OF SERVICE: 07/01/19 SUBJECTIVE: This 64 year old /WHITE F was hospitalized 06/30/19 with atypical chest pain left sided. A common component most likely angina. The patient's chest pain is non-cardiac. Cardiac markers are negative for myocardial event. The patient had Cardiac cath done at [facility] and we will obtain those records. REVIEW OF SYSTEMS: CONSTITUTIONAL: No night sweats. No fatigue, malaise, lethargy. No fever or chills. HEENT: Eyes: No visual changes. No eye pain. No eye discharge. ENT: No runny nose. No epistaxis. No sinus pain. No odynophagia. No congestion. RESPIRATORY: No cough, no congestion. No hemoptysis. No shortness of breath. CARDIOVASCULAR: No angina symptoms. No CHF symptoms. No atypical chest pain a present time located in pectoral muscle and left shoulder. No palpitations. No orthopnea.. GASTROINTESTINAL: No abdominal pain. No nausea or vomiting. No diarrhea or constipation. No hematemesis. No hematochezia. GENITOURINARY: No urgency. No frequency. No dysuria. No hematuria. No obstructive symptoms. No discharge. No pain. No significant abnormal bleeding. MUSCULOSKELETAL: No musculoskeletal pain; no joint swelling. NEUROLOGICAL: Awake, alert, oriented to time, place and person. No headache. No neck pain. No syncope. No seizures. No dizziness. PSYCHIATRIC: Not anxious. No depression. No suicidal thoughts. No homicidal thoughts. SKIN: No rash. No lesions. No wounds. ENDOCRINE: No unexplained weight loss. No weight gain. HEMATOLOGIC/LYMPHATIC: No anemia. No purpura. No petechiae. No prolonged or excessive bleeding. No palpable lymph nodes. PHYSICAL EXAMINATION: GENERAL: The patient is awake, alert and oriented, lying in bed in no distress. VITAL SIGNS: Temperature 97.8 F, Pulse 81, Respiratory Rate 20, BP 124/74, Pulse Ox 96% HEENT: Head normocephalic, atraumatic. Eyes: Extraocular muscles are intact. Pupils are equal, round and reactive to light and accommodation. Ears: No lesions. Nose appeared normal. Throat: No exudate or erythema. NECK: Supple. No JVD, no carotid bruit. No lymphadenopathy or thyromegaly. LUNGS: Clear to auscultation. Percussion note normal. Chest symmetrical. HEART: S1, S2, no S3. No murmurs. No cyanosis or clubbing. No ascites. Pulses: Dorsalis pedis and posterior tibial pulses +1 to +2 both sides. ABDOMEN: Soft. Non-tender. Bowel sounds active. No CVA tenderness. No mass felt. EXTREMITIES: No edema. Full range of motion of all extremities, equal. NEUROLOGIC: No focal deficit. Cranial nerves II through XII are grossly intact. No headache, no double vision or headache. SKIN: Warm and dry. Intact. Turgor-normal. LYMPHATIC: No palpable lymph nodes/no lymphedema. MUSCULOSKELETAL: Normal joints with no swelling. Muscle tone is normal. LAB REVIEW: 07/01/19 04:10 07/01/19 04:10 07/01/19 04:10: WBC 8.49 D, RBC 3.76 L, Hgb 11.5 L, Hct 34.6 L, MCV 92.0, MCH 30.6, MCHC 33.2, RDW Coeff of [place] 13.9, Plt Count 108 L, Immature Gran % (Auto) 0.4, Neut % (Auto) 59.7, Lymph % (Auto) 32.3, [place] % (Auto) 6.5, Eos % (Auto) 0.7, Baso % (Auto) 0.4, Immature Gran # (Auto) 0.0, Neut # (Auto) 5.1, Lymph # (Auto) 2.7, [place] # (Auto) 0.6, Eos # (Auto) 0.1, Baso # (Auto) 0.0 07/01/19 04:10: Sodium 141.0, Potassium 4.31, Chloride 103.1, Carbon Dioxide 31.7 H, Anion Gap 10.51, BUN 26.8 H, Creatinine 1.20, Estimated GFR (MDRD) 45.00, BUN/Creatinine Ratio 22.33, Glucose 81.0, Calcium 8.78, Total Bilirubin 0.31, AST 32.0, ALT 23.3, Alkaline Phosphatase 86.5, Total Creatine Kinase 54.0, Troponin I < 0.012, Total Protein 6.54, Albumin 3.75, Globulin 2.79, Albumin/Globulin Ratio 1.34 06/30/19 20:15: Total Creatine Kinase 56.1, Troponin I < 0.012 02/20/20 12:20: Urine Color Yellow, Urine Clarity Clear, Urine pH 6.5, Ur Specific [place] 1.010, Urine Protein Negative, Urine Glucose (UA) Negative, Urine Ketones Negative, Urine Blood Trace-lysed, Urine Nitrite Negative, Urine Bilirubin Negative, Urine Urobilinogen 0.2, Ur Leukocyte Esterase Negative, Urine Microscopic RBC 2-5, Urine Microscopic WBC 0-2, Ur Squamous Epith Cells 2- 5 06/30/19 12:05: Sodium 139.8, Potassium 4.02, Chloride 102.9, Carbon Dioxide 27. 8, Anion Gap 13.12, BUN 27.4 H, Creatinine 1.22, Estimated GFR (MDRD) 44.00, BUN/Creatinine Ratio 22.45, Glucose 57.1 L, Calcium 9.17, Total Bilirubin 0.30, AST 29.3, ALT 22.9, Alkaline Phosphatase 91.5, Troponin I < 0.012, Total Protein 7.14, Albumin 4.13, Globulin 3.01, Albumin/Globulin Ratio 1.37 06/30/19 12:05: WBC 14.57 H, RBC 4.04 L, Hgb 12.3, Hct 36.6 L, MCV 90.6, MCH 30.4, MCHC 33.6, RDW Coeff of [place] 13.5, Plt Count 147, Immature Gran % (Auto) 0.5, Neut % (Auto) 67.6, Lymph % (Auto) 25.1, [place] % (Auto) 6.0, Eos % (Auto) 0.4, Baso % (Auto) 0.4, Immature Gran # (Auto) 0.1, Neut # (Auto) 9.9 H, Lymph # (Auto) 3.7 H, [place] # (Auto) 0.9, Eos # (Auto) 0.1, Baso # (Auto) 0.1 ASSESSMENT: Please see below. 1. Chest pain chest pain atypical with multiple risk factors. Cardiac catheterization done at [facility] was supposedly read as normal. PLAN: 1. Continue medications 2. Echo and stress echo Plan and coordination of the patient's care discussed in the presence of Central Supply Aide and nurse. CONDITION: Stable. SCRIBED BY: Katerine FERRELL scribed while in presence of service performed by Dr. JOYCE MCINTYRE on 07/01/19 ([id number])
[2019-07-01] MEDS ORDERED: NON-FORMULARY MEDICATION (Liraglutide 1.2 MG) SUBCUT SCH (12:00)
[2019-07-01 14:14] VITALS: BP 166/83
[2019-07-01] MEDS ORDERED: DOBUTAMINE 500 MG-D5W 250 ML 500 MG/250 ML BAG IV ONE (14:15)
[2019-07-01] MEDS ORDERED: ATROPINE SULFATE PFS ONE (14:15)
--- NOTE | 2019-07-04 13:44 | ECHO2D ---
Date of Exam: 07/01/19 Ordering Physician: DR. JOYCE MCINTYRE Room #: 118 Reason for Echo: CHEST PAIN, HTN, DM, HYPERLIPIDEMIA, CAD M-Mode Normal Adult Results LV Dimensions Normal Adult Results AoV Opening excursions >1.6 >1.6 LVEDD-base- 3.5-5.8 4.5 Ao root dimensions 2.0-3.7 3.5 LVESD-base- 3.1-4.6 L. Atrium dimensions 1.9-3.8 3.9 Post. Wall thickness 0.8-1.1 1.2 IV septum (thickness) 0.7-1.2 1.2 Post. Wall excursion 0.72-1.3 NORMAL Septal motion NORMAL Systolic motion R. Ventricular cavity 1.5-2.0 NORMAL LVEF 60% 55% Paradoxical septal wall motion NORMAL 2-D : 2-D M Mode Echocardiogram was performed using apical four chamber and left parasternal long and short axis views. Mitral, tricuspid and aortic valves appear to be normal. Contractility of the left ventricle seems to be normal, so is the cavity size. Left atrial cavity size and aortic root appear to be normal. There is no pericardial effusion. There is no thrombus noted in the left ventricle or left atrial cavity. No mitral valve prolapse noted. M-MODE: MV: NORMAL AV: NORMAL TV: NORMAL PV: CHAMBER SIZE: NORMAL WALL MOTION: NORMAL PERICARDIUM: NORMAL INTERPRETATION: 1. DIFFICULT STUDY 2. LEFT VENTRICULAR HYPERTROPHY 3. NORMAL VALVES 4. NORMAL LEFT VENTRICULAR CONTRACTILITY MTDD
--- NOTE | 2019-07-04 13:46 | HP ---
DATE OF SERVICE: 06/30/2019 REASON FOR HOSPITALIZATION: Chest pain HISTORY OF PRESENT ILLNESS: The patient was seen and examined in the emergency room. She came to the emergency room because of chest pain. The patient has reflux type of symptoms. Her pain is in the center upper part of the chest. It is exertional as well as non-exertional. The patient says that she had cardiac catheterization done by Dr. Campos about 4-5 years ago which was reported as normal. The patient has multiple risk factors for coronary artery disease like smoking, obesity, dyslipidemia and hypertension. PAST MEDICAL HISTORY/PAST SURGICAL HISTORY: DE COPD Diabetes Mellitus Fatty liver Dyslipidemia Neuropathy DJD spine Former smoker Metabolic syndrome Diverticulosis Recent D&C Cholecystectomy, 1976 Back surgery, 2008 Ovaries removed 2008 Tubal, 1977 Heart Cath, 2012 Dr. Campos REVIEW OF SYSTEMS: CONSTITUTIONAL: No night sweats. No fatigue, malaise, lethargy. No fever or chills. HEENT: Eyes: No visual changes. No eye pain. No eye discharge. ENT: No runny nose. No epistaxis. No sinus pain. No sore throat. No odynophagia. No ear pain. No congestion. RESPIRATORY: No cough, no congestion. No hemoptysis. No shortness of breath. CARDIOVASCULAR: No angina symptoms. No CHF symptoms. No atypical chest pain for CAD. No palpitations. No PND. No orthopnea. GASTROINTESTINAL: No abdominal pain. No nausea or vomiting. No diarrhea or constipation. No hematemesis. No hematochezia. GENITOURINARY: No urgency. No frequency. No dysuria. No hematuria. No obstructive symptoms. No discharge. No pain. No significant abnormal bleeding. MUSCULOSKELETAL: No musculoskeletal pain. No joint swelling. No arthritis. NEUROLOGICAL: No headache. No neck pain. No syncope. No seizures. No dizziness. PSYCHIATRIC: Not anxious. No depression. No suicidal thoughts. No homicidal thoughts. SKIN: No rash. No lesions. No wounds. ENDOCRINE: No unexplained weight loss. No weight gain. HEMATOLOGIC/LYMPHATIC: No anemia. No purpura. No petechiae. No prolonged or excessive bleeding. No palpable lymph nodes. PERSONAL/FAMILY/SOCIAL HISTORY: The patient is listing Ron Chase as personalized living manager nurse. She is up and about able to do all activity of daily living. Intelligent. She is a full code. No history of fall. Nonsmoker. No history of alcohol or drug abuse. 5'9 and weighs 300lbs with BMI of 44. MEDICATIONS: Levothyroxine 75mg PO daily Protonix 40mg PO daily at bedtime Xanax 0.5mg TID Metoprolol 50mg at bedtime Hydrocodone one tablet PO TID Albuterol Ventolin HFA two puffs as needed Novolog mix 70-30 94 units SUBCUT QAM Lisinopril/Hydrochlorothiazide two tablets PO daily Bevespi two huffs daily Hydroxyzine 25mg PRN TID as needed Victoza 1.2 SUBCUT every weekly Gabapentin 600mg PO TID ALLERGIES: Epinephrine Flagyl Naproxen Penicillin Sulfa Sulfamethoxazole Trimethoprim Vancomycin PHYSICAL EXAMINATION: GENERAL: Oriented to time place and person. HEENT: Head normocephalic, atraumatic. Eyes: Extraocular muscles are intact. Pupils are equal, round and reactive to light and accommodation. Ears: No lesions. Nose appeared normal. Throat: No exudate or erythema. NECK: Supple. No JVD, no carotid bruit. No lymphadenopathy or thyromegaly. LUNGS: Decreased breath sounds but clear to auscultation. Percussion note normal. Chest symmetrical. HEART: S1, S2, no S3. No murmur. No cyanosis or clubbing. No ascites. Pulses: Dorsalis pedis and posterior tibial pulses +1 to +2 bilaterally. ABDOMEN: Soft. Nontender. Bowel sounds active. No CVA tenderness. No mass felt. EXTREMITIES: No edema. Full range of motion of all extremities, equal. NEUROLOGIC: No focal deficit. Cranial nerves II through XII are grossly intact. No headache, no double vision or headache. SKIN: Not dry. Intact. Turgor - normal. LYMPHATIC: No palpable lymph nodes/no lymphedema. MUSCULOSKELETAL: Normal joints with no swelling. Muscle tone is normal. LABS: EKG sinus bradycardia with PAC's noted. No ST-T wave changes. ASSESSMENT: 1. Chest pain chest pain atypical with multiple risk factors. PLAN: 1. Admit the patient to Special care with serial EKG's, cardiac markers, routine telemetry orders. 2. Education about CAD risk factors carried out. She is high risk for coronary artery disease event and CVA event. 3. The patient is noncompliant for lifestyle, medications and recommendations. 4. Oximetry 5. Counseling for weight loss done with ADA diet 6. Advised to continue the rest of the medications with insulin, Pantoprazole, Albuterol as before 7. Will get records from Dr. Campos before Cardiac cath from [facility] done in 2012 8. Will do echocardiogram, resting 9. Will also do Dobutamine stress echo to rule out any ischemia or coronary insufficiency of any significance. 10.Gastroesophageal reflux disease discussed with the patient 11.Advised to continue Protonix. CONDITION: Stable. TIME SPENT: More than 70 minutes. MTDD
--- NOTE | 2019-07-04 13:49 | PN ---
DATE OF SERVICE: 06/30/2019 ADMIT NOTE HISTORY OF PRESENT ILLNESS: The patient was seen and examined in the emergency room. She came to the emergency room because of chest pain. The patient has reflux type of symptoms. Her pain is in the center upper part of the chest. It is exertional as well as non-exertional. The patient says that she had cardiac catheterization done by Dr. Campos about 4-5 years ago which was reported as normal. The patient has multiple risk factors for coronary artery disease like smoking, obesity, dyslipidemia and hypertension. REVIEW OF SYSTEMS: CONSTITUTIONAL: No night sweats. No fatigue, malaise, lethargy. No fever or chills. HEENT: Eyes: No visual changes. No eye pain. No eye discharge. ENT: No runny nose. No epistaxis. No sinus pain. No sore throat. No odynophagia. No ear pain. No congestion. RESPIRATORY: No cough, no congestion. No hemoptysis. No shortness of breath. CARDIOVASCULAR: No angina symptoms. No CHF symptoms. No atypical chest pain for CAD. No palpitations. No PND. No orthopnea. GASTROINTESTINAL: No abdominal pain. No nausea or vomiting. No diarrhea or constipation. No hematemesis. No hematochezia. GENITOURINARY: No urgency. No frequency. No dysuria. No hematuria. No obstructive symptoms. No discharge. No pain. No significant abnormal bleeding. MUSCULOSKELETAL: No musculoskeletal pain. No joint swelling. No arthritis. NEUROLOGICAL: No headache. No neck pain. No syncope. No seizures. No dizziness. PSYCHIATRIC: Not anxious. No depression. No suicidal thoughts. No homicidal thoughts. SKIN: No rash. No lesions. No wounds. ENDOCRINE: No unexplained weight loss. No weight gain. HEMATOLOGIC/LYMPHATIC: No anemia. No purpura. No petechiae. No prolonged or excessive bleeding. No palpable lymph nodes. PHYSICAL EXAMINATION: GENERAL: Oriented to time place and person. HEENT: Head normocephalic, atraumatic. Eyes: Extraocular muscles are intact. Pupils are equal, round and reactive to light and accommodation. Ears: No lesions. Nose appeared normal. Throat: No exudate or erythema. NECK: Supple. No JVD, no carotid bruit. No lymphadenopathy or thyromegaly. LUNGS: Decreased breath sounds but clear to auscultation. Percussion note normal. Chest symmetrical. HEART: S1, S2, no S3. No murmur. No cyanosis or clubbing. No ascites. Pulses: Dorsalis pedis and posterior tibial pulses +1 to +2 bilaterally. ABDOMEN: Soft. Nontender. Bowel sounds active. No CVA tenderness. No mass felt. EXTREMITIES: No edema. Full range of motion of all extremities, equal. NEUROLOGIC: No focal deficit. Cranial nerves II through XII are grossly intact. No headache, no double vision or headache. SKIN: Not dry. Intact. Turgor - normal. LYMPHATIC: No palpable lymph nodes/no lymphedema. MUSCULOSKELETAL: Normal joints with no swelling. Muscle tone is normal. LABS: EKG sinus bradycardia with PAC's noted. No ST-T wave changes. PLAN: 1. Admit the patient to Special care with serial EKG's, cardiac markers, routine telemetry orders. 2. Education about CAD risk factors carried out. She is high risk for coronary artery disease event and CVA event. 3. The patient is noncompliant for lifestyle, medications and recommendations. CONDITION: Stable. TIME SPENT: More than 30 minutes. Plan and coordination of the patient's care discussed in the presence of nurse. ASTRID
--- NOTE | 2019-07-06 08:41 | ECHOSTRESS ---
Date of Exam: 07/01/2019 Ordering Physician: DR. JOYCE MCINTYRE Reason for Echo: CHEST PAIN, HTN, DM, CAD, HYPERLIPIDEMIA, DOBUTAMINE STRESS--NO ISCHEMIA M-Mode Normal Adult Results LV Dimensions Normal Adult Results AoV Opening excursions >1.6 LVEDD-base- 3.5-5.8 Ao root dimensions 2.0-3.7 LVESD-base- 3.1-4.6 L. Atrium dimensions 1.9-3.8 Post. Wall thickness 0.8-1.1 IV septum (thickness) 0.7-1.2 Post. Wall excursion 0.72-1.3 Septal motion Systolic motion R. Ventricular cavity 1.5-2.0 LVEF 60% Paradoxical septal wall motion 2-D: NORMAL LEFT VENTRICLE CONTRACTILITY--RESTING AND WITH DOBUTAMINE INFUSION, DIFFICULT STUDY--BODY HABITUS M-MODE: MV: AV: TV: PV: CHAMBER SIZE: WALL MOTION: NORMAL LEFT VENTRICLE CONTRACTILITY--RESTING AND WITH DOBUTAMINE INFUSION, DIFFICULT STUDY--BODY HABITUS PERICARDIUM: INTERPRETATION: 1. NORMAL LEFT VENTRICLE CONTRACTILITY--RESTING AND WITH DOBUTAMINE INFUSION, DIFFICULT STUDY--BODY HABITUS MTDD
--- NOTE | 2019-07-06 08:44 | DS ---
DATE OF SERVICE: 07/01/19 FINAL DIAGNOSIS: 1. CHEST PAIN, ETIOLOGY, NONCARDIAC 2. MORBID OBESITY 3. DIABETES MELLITUS 4. HYPERTENSION 5. DYSLIPIDEMIA 6. CHRONIC LUNG DISEASE 7. METABOLIC SYNDROME 8. CARDIAC DYSRHYTHMIAS - THE PATIENT HAS FREQUENT PAC'S DISCHARGE INSTRUCTIONS: 1. Advised to see me in 5 to 7 days. 2. Advised to go to the nearest emergency room with any further chest pain. Of note: The patient had cardiac catheterization [place] [address] Campos with normal ejection fraction, normal coronary arteries. MEDICATIONS AT DISCHARGE: Advised to continue Insulin and the rest of the medications as before, no change. NEW PRESCRIPTIONS: N/A DISCONTINUED MEDICATIONS: N/A DIET INSTRUCTIONS: Heart Healthy, diabetic diet ACTIVITY: As patient tolerates SMOKING: Former smoker DISEASE SPECIFIC EDUCATION: Antireflux measures Lifestyle modifications including weight loss and diet Medication compliance Followup HOSPITAL COURSE: The patient was hospitalized with fairly atypical chest pain. The patient underwent cardiac markers, serial EKGs that were negative for any acute myocardial event. Echo showed LVH with enlarged LA cavity but normal LV contractility. Dobutamine stress echo was negative for ischemia. The patient likely had more like muscular sprain or could be reflux. In any case, antireflux measures discussed with her. The patient is noncompliant of lifestyle and medication. She was strongly advised to lose weight. Bariatric referral declined. Condition at the time of discharge stable. TIME SPENT: More than 60 minutes. ASTRID
--- NOTE | 2019-07-06 08:46 | PN ---
BILLING 06/30/19 ADMISSION DAY LEVEL 5 07/01/19 DISCHARGE MTDD
--- NOTE | 2019-07-06 08:51 | DOBSTECHO ---
Date of Test: 07/01/2019 Ordering Physician: DR. JOYCE MCINTYRE Smoking History: QUIT 2007 Reason for Examination: CHEST PAIN, HTN, DM2, CAD, HYPERLIPIDEMIA Current Medications: HUMALOG, SYNTHROID, LISINOPRIL, LOPRESSOR, MICATIN, PROTONIX, VICTOZA, Height: 69" Weight: 298 LBS Target Heart Rate: 131/155 S-T Segment Stage Time HR BPM BP MMHG Rhythm +/- Elevation Depression Symptoms Control Sitting 68 128/62 SR X NONE Dobutamine 250mg/D5W 5cmg/KG/mn 10cmg/KG/mn 3" 80 140/52 SR X NONE 15cmg/KG/mn 2" 84 150/54 SR X NONE 20cmg/KG/mn 2" 107 SR X NONE 25cmg/KG/mn 2" 122 164/54 SR X NONE 30cmg/KG/mn :26 139 SR X NONE 35cmg/KG/mn 40cmg/KG/mn 3" MIN POST INFUSION 116 130/60 SR X NONE 10" MIN POST INFUSION 80 130/58 SR X NONE DURATION OF INFUSION 9:26 MAXIMUM HEART RATE REACHED 139 BPM 95% OXYGEN SATURATION ON ROOM AIR WITH DOBUTAMINE INFUSION Interpretation: 1. NO EVIDENCE OF ISCHEMIA BY ST-T WAVE 2. NO CHEST PAIN OR DISCOMFORT 3. PAC'S WITH SMALL RUNS OF PAT, 4 TO 5 BEATS NOTED 4. NORMAL LEFT VENTRICULAR CONTRACTILITY--RESTING AND WITH DOBUTAMINE INFUSION MTDD
== END 2019-07-01 16:45 | disposition home or self-care (01) | DRG 313 ==
LOC: ED 11:19 → MEDSURG B 14:12
PROVIDERS: ADMIT Internal Medicine; ATTEND Internal Medicine

== ENCOUNTER 2020-03-13 19:07 | Inpatient (IN) ==
[2020-03-13 19:22] VITALS: BMI 46.4
[2020-03-13 19:48] LABS: BASOPHILS # (AUTO) 0.1 K/uL (0-0.2); BASOPHILS % (AUTO) 0.4 % (0.0-3.0); EOSINOPHILS # (AUTO) 0.1 K/ul (0.0-0.7); EOSINOPHILS % (AUTO) 0.7 % (0.0-7.0); HEMATOCRIT 42.9 % (37.0-47.0); HEMOGLOBIN 14.5 g/dl (12.0-16.0); IMMATURE GRANULOCYTE # (AUTO) 0.1 (0.0-1.0); IMMATURE GRANULOCYTE % (AUTO) 0.4 % (0.0-5.0); LYMPHOCYTES # (AUTO) 3.2 K/uL (0.60-3.4); LYMPHOCYTES % (AUTO) 24.2 (10.0-50.0); MEAN CORPUSCULAR HEMOGLOBIN 30.8 pg (27.0-31.0); MEAN CORPUSCULAR HGB CONC 33.8 (31.8-35.4); MEAN CORPUSCULAR VOLUME 91.1 fl (81.0-99.0); MONOCYTES # (AUTO) 0.9 K/uL (0.4-2.0); MONOCYTES % (AUTO) 6.6 (0-10); NEUTROPHILS # (AUTO) 8.9 K/ul (2.0-6.9); NEUTROPHILS % (AUTO) 67.7 % (42.2-75.2); PLATELET COUNT 144 10^3/uL (140-440); RDW COEFFICIENT OF VARIATION 13.9 % (11.6-14.8); RED BLOOD COUNT 4.71 10^6/ul (4.20-5.40)
[2020-03-13] MEDS ORDERED: SODIUM CHLORIDE 500 ML IV STA (19:51)
[2020-03-13] MEDS ORDERED: CARDIZEM INJ IVP STA ×2 (19:51→21:58)
[2020-03-13] MEDS ORDERED: CARDIZEM 125 MG in SODIUM CHLORIDE 100 ML IV SCH ×4 (20:00→23:30)
[2020-03-13 20:01] LABS: ALANINE AMINOTRANSFERASE 27.4 U/L (0-35); ALBUMIN 4.64 g/dL (3.5-5.0); ALKALINE PHOSPHATASE 127.9 U/L (53-141); ASPARTATE AMINO TRANSFERASE 41.8 U/L (14-36); BILIRUBIN,TOTAL 0.73 mg/dL (0.2-1.3); BLOOD UREA NITROGEN 15.2 mg/dL (7-17); CALCIUM 9.94 mg/dL (8.4-10.2); CARBON DIOXIDE 30.7 mmol/L (22-30.0); CHLORIDE 98.5 mmol/L (98-107); CREATINE KINASE 125.1 U/L (30-135); CREATININE 1.22 mg/dL (0.60-1.30); GLUCOSE 102.6 mg/dL (74-106); POTASSIUM 4.13 mmol/L (3.5-5.1); SODIUM 137.6 mmol/L (134.5-145)
--- NOTE | 2020-03-13 20:05 | DI ---
EXAM: Chest, one-view HISTORY: Chest Pain FINDINGS: Cardiac and mediastinal contours are normal. Pulmonary vasculature is normal. Lungs are clear. Atherosclerotic calcification of the aorta. Bony thorax is unremarkable. IMPRESSION: No acute cardiopulmonary disease
[2020-03-13 20:13] LABS: TROPONIN I < 0.012 ng/ml (0.0000-0.120)
[2020-03-13] MEDS ORDERED: LOVENOX SUBCUT STA (20:27)
--- NOTE | 2020-03-13 20:27 | ED.PDOC ---
General ED Provider: Dr. ALEXIS BUTT Chief Complaint: Palpitations Stated Complaint: Patient comes to the ER with complaints of sudden onset of palpitations with heaviness on the chest and left arm. Also feels short of breath but unchanged from her chronic COPD. Time Seen by Physician: 08:00 Mode of Arrival: Walk-In Information Source: Patient Primary Care Provider: JOYCE WANG Nursing and Triage Documentation Reviewed and Agree: Yes Does patient meet sepsis criteria?: No System Inflammatory Response Syndrome: Not Applicable Sepsis Protocol: For patient's 13 years and over: Temp is 96.8 and below OR 101 and greater Pulse >90 BPM Resp >20/minute Acutely Altered Mental Status Are patient's symptoms suggestive of a new infection, such as: -Pneumonia -Skin, Soft Tissue -Endocarditis -UTI -Bone, Joint Infection -Implantable Device -Acute Abdominal Infection -Wound Infection -Meningitis -Blood Stream Catheter Infection -Unknown Cardiovascular Complaint Exam Palpitations Complaint/Exam Onset/Duration: just prior to arrival Symptoms Are: Still present Timing: Constant Initial Severity: Moderate Current Severity: Moderate Character: Reports Irregular and Pounding Aggravating: Reports None Alleviating: Reports None Associated Signs and Symptoms: Reports Chest pain and Shortness of breath Related Surgical History: Reports None Cardiac Risk Factors: Reports None Atrial Fibrillation Risk Factors: Reports Hypertension and COPD Thyroid Exam: Normal Differential Diagnoses: Panic Disorder, Paroxysmal SVT and Other (Palpitations) Quality Indicators for AMI: EKG in 10min. Quality Indicator For Non-Traumatic Chest Pain/Syncope: EKG Performed Review of Systems Review Of Systems Constitutional: Reports No symptoms Eyes: Reports No symptoms Ears, Nose, Mouth, Throat: Reports No symptoms Respiratory: Reports Short of air Cardiac: Reports Chest pain, Irregular heart rate and Palpitations GI: Reports No symptoms : Reports No symptoms Musculoskeletal: Reports No symptoms Skin: Reports No symptoms Neurological: Reports Anxiety Endocrine: Reports No symptoms Hematologic/Lymphatic: Reports No symptoms All Other Systems: Reviewed and Negative FOR[facility]LY [facility] Medical History (Updated 03/13/20 @ 23:20 by ALEXIS BUTT MD) Anaphylaxis Anxiety Cerumen impaction Chest pain Cholecystectomy planned Chronic arthritis Diverticulitis Fatty liver Folliculitis History of gastroesophageal reflux (GERD) Hyperlipidemia Hypertension Hyperthyroidism Insulin dependent type 1 diabetes mellitus Irritable bowel syndrome Mitral valve prolapse Objective tinnitus Psoriasis Sensorineural hearing loss (SNHL) of both ears Family History FATHER Melanocarcinoma FATHER Hypertension MATERNAL GRANDMOTHER No problems noted. Mother Hypertension Social History Smoking and tobacco status: Former smoker Substance use type: does not use Surgical History (Updated 07/01/19 @ 07:46 by SHAHANA WEIR) H/O dilation and curettage H/O tubal ligation History of back surgery Female Reproductive History Menstrual Hx Hysterectomy: No Hx Tubal Ligation: Yes Physical Exam Physical Exam Appearance: Reports Obese Ill-appearing: None Pain Distress: None Eyes: Reports KALYANI, EOMI and Conjunctiva clear ENT: Reports Ears normal, Nose normal and Oropharynx normal Respiratory: Reports Airway patent, Breath sounds clear, Breath sounds equal and Respirations nonlabored Cardiovascular: Reports Irregular rhythm and Tachycardia Musculoskeletal: Reports Normal strength, ROM intact, No edema and No calf tenderness Skin: Reports Warm, Dry and Normal color Neurological: Reports Sensation intact, Motor intact, Reflexes intact, Cranial nerves intact, Alert and Oriented Psychiatric: Reports Anxious Interpretation Radiology Interpretation Radiology Interpretation By: Radiologist Radiology Results: Negative Exam Interpreted: Portable CXR Mechanical Service Specialist Rate: Tachy Rhythm: Other (Atrial fibrillation ) EKG Interpretation Time of EKG #1: 19:44 Rate: Tachy Rhythm: Other (atrial fibrillation ) Ectopy: None [place]: [place] Interpretation: Atrial fibrillation with RVR Time of EKG #2: 22:59 Rate: Normal and Tachy Rhythm: Sinus Ectopy: None [place]: [place] ST Segment: Normal Re-Evaluation Re-Evaluation Time of Re-Evaluation: 23:21 Status: Improved (converted to NSR ) Vital Signs Stable: Yes Physician Notification Case Discussed Physician Notified: Dr Wang Time of Notification: 23:20 (Admit to telemetery ) Critical Care Note Critical Care Note Total Critical Care Time (mins): 40 Course Course Hematology/Chemistry: 03/13/20 19:48 03/13/20 19:48 Orders, Labs, Meds: Lab Review 03/13/20 03/13/20 03/13/20 19:48 19:48 19:50 WBC 13.10 H RBC 4.71 Hgb 14.5 Hct 42.9 MCV 91.1 MCH 30.8 MCHC 33.8 RDW Coeff of [place] 13.9 Plt Count 144 Immature Gran % (Auto) 0.4 Neut % (Auto) 67.7 Lymph % (Auto) 24.2 [place] % (Auto) 6.6 Eos % (Auto) 0.7 Baso % (Auto) 0.4 Neut # (Auto) 8.9 H Lymph # (Auto) 3.2 [place] # (Auto) 0.9 Eos # (Auto) 0.1 Baso # (Auto) 0.1 Immature Gran # (Auto) 0.1 Sodium 137.6 Potassium 4.13 Chloride 98.5 Carbon Dioxide 30.7 H Anion Gap 12.53 BUN 15.2 Creatinine 1.22 Estimated GFR (MDRD) 44.00 BUN/Creatinine Ratio 12.45 Glucose 102.6 Calcium 9.94 Magnesium 1.89 Total Bilirubin 0.73 AST 41.8 H ALT 27.4 Alkaline Phosphatase 127.9 Total Creatine Kinase 125.1 CK-MB (CK-2) 1.270 CK-MB (CK-2) % 1.0100 Troponin I < 0.012 Total Protein 8.20 Albumin 4.64 Globulin 3.56 Albumin/Globulin Ratio 1.30 TSH 2.230 Orders Category Date Time Status EKG-(ED ONLY) Stat CARDIO 03/13/20 19:36 Completed EKG-(ED ONLY) Stat CARDIO 03/13/20 23:00 Ordered EKG-(IP & OP ONLY) Routine CARDIO 03/14/20 07:00 Ordered METERED DOSE INHALATION Routine CARDIO 03/13/20 23:30 Ordered ACTIVITY .Early Mobilization for VTE Prevention CARE 03/13/20 23:24 Ordered BLOOD GLUCOSE MONITORING 0630,1100,1700,2100 CARE 03/13/20 23:33 Ordered INTAKE & OUTPUT Q8HR CARE 03/13/20 23:24 Ordered VITAL SIGNS Q4HR CARE 03/13/20 23:24 Ordered CARDIAC DIET DIETARY 03/13/20 Breakfast Ordered CBC W/ AUTO DIFF DAILY@0600 LAB 03/14/20 06:00 Ordered CBC W/ AUTO DIFF DAILY@0600 LAB 03/15/20 06:00 Ordered CBC W/ AUTO DIFF Stat LAB 03/13/20 19:48 Completed COMPREHENSIVE METABOLIC PANEL DAILY@0600 LAB 03/14/20 06:00 Ordered COMPREHENSIVE METABOLIC PANEL DAILY@0600 LAB 03/15/20 06:00 Ordered COMPREHENSIVE METABOLIC PANEL Stat LAB 03/13/20 19:48 Completed CREATINE KINASE Q8H LAB 03/14/20 05:30 Ordered CREATINE KINASE Q8H LAB 03/14/20 13:30 Ordered CREATINE KINASE Stat LAB 03/13/20 19:48 Completed MAGNESIUM Stat LAB 03/13/20 19:50 Completed THYROID STIMULATING HORMONE Stat LAB 03/13/20 19:50 Completed TROPONIN I Q8H LAB 03/14/20 05:30 Ordered TROPONIN I Q8H LAB 03/14/20 13:30 Ordered TROPONIN I Stat LAB 03/13/20 19:48 Completed 5 mg/Hr- Titrate Per Provider MEDS 03/13/20 23:30 Ordered Diltiazem HCl [Cardizem] 125 mg 0.9 % Sodium Chloride [Sodium Chloride] 100 ml IV TITRATE Albuterol Inhaler(with Spacer) [Ventolin Hfa (Per Puff- MEDS 03/13/20 23:30 Ordered with Spacer)] 18 gm IH Q6H PRN Alprazolam [Xanax] MEDS 03/13/20 23:30 Ordered 0.5 mg PO TID PRN Diltiazem HCl [Cardizem Inj] MEDS 03/13/20 19:51 Discontinued 15 mg IVP ONCE STA Diltiazem HCl [Cardizem Inj] MEDS 03/13/20 21:58 Discontinued 15 mg IVP ONCE STA Diltiazem HCl [Cardizem] MEDS 03/13/20 23:30 Ordered 60 mg PO Q12HR Diltiazem HCl [Cardizem] 125 mg MEDS 03/13/20 20:00 Discontinued 0.9 % Sodium Chloride [Sodium Chloride] 100 ml IV TITRATE Diltiazem HCl [Cardizem] 125 mg MEDS 03/13/20 21:49 Active 0.9 % Sodium Chloride [Sodium Chloride] 100 ml IV TITRATE Enoxaparin Sodium [Lovenox] MEDS 03/13/20 20:27 Discontinued 142 mg SUBCUT ONCE STA Enoxaparin Sodium [Lovenox] MEDS 03/14/20 09:00 Ordered 150 mg SUBCUT DAILY Gabapentin [Neurontin] MEDS 03/14/20 09:00 Ordered 600 mg PO TID Hydrocodone Bit/Acetaminophen [[place] 7.5-325] MEDS 03/14/20 09:00 Ordered 1 tab PO TID Hydroxyzine HCl [Atarax] MEDS 03/13/20 23:30 Ordered 25 mg PO TID PRN Levothyroxine Sodium [Synthroid] MEDS 03/14/20 06:30 Ordered 75 mcg PO QDAC Lisinopril/Hydrochlorothiazide [Zestoretic 20-12.5 mg MEDS 03/14/20 09:00 Ordered Tab] 2 tab PO DAILY Metoprolol Tartrate [Lopressor] MEDS 03/14/20 21:00 Ordered 50 mg PO BEDTIME Nystatin [Nystop Powder] MEDS 03/13/20 23:30 Ordered 1 applic TP BID PRN Pantoprazole Sodium [Protonix] MEDS 03/14/20 09:00 Ordered 40 mg PO DAILY Sodium Chloride 0.9% [Sodium Chloride] 1,000 ml MEDS 03/13/20 23:30 Ordered IV 75 mls/hr Sodium Chloride 0.9% [Sodium Chloride] 500 ml MEDS 03/13/20 19:51 Active IV 125 mls/hr glycopyrrolate-formoterol [Bevespi Aerosphere] MEDS 03/14/20 09:00 Ordered 2 inh IH BID insulin asp prt-insulin aspart [Novolog Mix 70- MEDS 03/13/20 23:30 Ordered 30FlexPen U-100] 80 - 100 unit SUBCUT TIDWM PRN liraglutide [Victoza 2-[place]] MEDS 03/13/20 23:30 Ordered 1.2 mg SUBCUT QNOON RESUSCITATION STATUS Routine OTHERS 03/13/20 23:23 Ordered CHEST, 1V AP ONLY Stat RADS 03/13/20 19:36 Completed Medications Generic Name Dose Route Start Last Admin Trade Name Freq PRN Reason Stop Dose Admin Hydrocodone Bitart/Acetaminophen 1 tab 03/14/20 09:00 Hydrocodone Bit/Acetaminophen 7.5/325 Mg Tablet PO TID GIANLUCA Albuterol Sulfate puff 03/13/20 23:30 Albuterol Sulfate (Ventolin Hfa) 18 Gm 1 Puff With Spacer IH Q6H PRN dyspnea Alprazolam 0.5 mg 03/13/20 23:30 Alprazolam 0.5 Mg Tablet PO TID PRN anxiety Diltiazem HCl 60 mg 03/13/20 23:30 Diltiazem Hcl 60 Mg Tablet PO Q12HR GIANLUCA Enoxaparin Sodium 150 mg 03/14/20 09:00 Enoxaparin Sodium 150 Mg/Ml Syr SUBCUT DAILY GIANLUCA Gabapentin 600 mg 03/14/20 09:00 Gabapentin 300 Mg Capsule PO TID [facility] Lisinopril/HCTZ 2 tab 03/14/20 09:00 Lisinopril/Hydrochlorothiazide 12.5 Tablet PO DAILY [facility] Hydroxyzine HCl 25 mg 03/13/20 23:30 Hydroxyzine Hcl 25 Mg Tablet PO TID PRN itching Sodium Chloride 500 mls @ 125 mls/hr 03/13/20 19:51 03/13/20 20:39 Sodium Chloride IV 03/13/20 23:50 125 mls/hr .Q4H STA Administration Diltiazem HCl 125 mg/ Sodium 125 mls @ 5 mls/hr 03/13/20 21:49 Chloride IV TITRATE [facility] Protocol 5 MG/HR Sodium Chloride 1,000 mls @ 75 mls/hr 03/13/20 23:30 Sodium Chloride IV .[id number] [facility] Diltiazem HCl 125 mg/ Sodium 125 mls @ 5 mls/hr 03/13/20 23:30 Chloride IV TITRATE [facility] Protocol 5 MG/HR Levothyroxine Sodium 75 mcg 03/14/20 06:30 Levothyroxine Sodium 75 Mcg Tablet PO QDAC [facility] Metoprolol Tartrate 50 mg 03/14/20 21:00 Metoprolol Tartrate 50 Mg Tablet PO BEDTIME GIANLUCA Non-Formulary Medication 2 inh 03/14/20 09:00 Glycopyrrolate-Formoterol [Bevespi Aerosphere] IH BID [facility] Non-Formulary Medication 80 - 100 unit 03/13/20 23:30 Insulin Asp Prt-Insulin Aspart [Novolog Mix 70-30flexpen U-100] SUBCUT TIDWM PRN Diabetes Non-Formulary Medication 1.2 mg 03/13/20 23:30 Liraglutide [Victoza 2-[place]] SUBCUT QNOON [facility] Nystatin 1 applic 03/13/20 23:30 Nystatin 15 Gm Powder TP BID PRN Redness and irritation Pantoprazole Sodium 40 mg 03/14/20 09:00 Pantoprazole Sodium 40 Mg Tablet.Dr PO DAILY [facility] Discontinued Medications Generic Name Dose Route Start Last Admin Trade Name Freq PRN Reason Stop Dose Admin Diltiazem HCl 15 mg 03/13/20 19:51 03/13/20 20:38 Diltiazem Hcl Inj 25 Mg/5 Ml Vial IVP 03/13/20 19:52 15 mg ONCE STA Administration Diltiazem HCl 15 mg 03/13/20 21:58 03/13/20 22:08 Diltiazem Hcl Inj 25 Mg/5 Ml Vial IVP 03/13/20 21:59 15 mg ONCE STA Administration Enoxaparin Sodium 142 mg 03/13/20 20:27 03/13/20 20:43 Enoxaparin Sodium 150 Mg/Ml Syr SUBCUT 03/13/20 20:28 142 mg ONCE STA Administration Diltiazem HCl 125 mg/ Sodium 125 mls @ 5 mls/hr 03/13/20 20:00 Chloride IV TITRATE GIANLUCA Protocol 5 MG/HR Vital Signs: Temp Pulse Resp BP Pulse Ox 03/13/20 19:09 97.6 F 88 20 150/87 H 95 AGATA Risk Score AGATA Risk Score: Risk Score Odds of by 30D 0 0.1 (0.1-0.2) 1 0.3 (0.2-0.3) 2 0.4 (0.3-0.5) 3 0.7 (0.6-0.9) 4 1.2 (1.0-1.5) 5 2.2 (1.9-2.6) 6 3.0 (2.5-3.6) 7 4.8 (3.8-6.1) Discharge Plan Discharge Patient Disposition: ADMITTED INPATIENT Discharge Problem: Atrial fibrillation with rapid ventricular response ED Provider: ALEXIS BUTT Condition: Stable Physician Progress Note: []
[2020-03-13 20:32] LABS: THYROID STIMULATING HORMONE 2.23 uIU/L (0.465-4.68)
[2020-03-13 20:40] LABS: MAGNESIUM 1.89 mg/dL (1.6-2.3)
[2020-03-13] MEDS ORDERED: VENTOLIN HFA (PER PUFF-WITH SPACER) IH PRN (23:30)
[2020-03-13] MEDS ORDERED: SODIUM CHLORIDE 1,000 ML IV SCH (23:30)
[2020-03-13] MEDS ORDERED: ATARAX PO PRN (23:30)
[2020-03-13] MEDS ORDERED: NYSTOP POWDER TP PRN (23:30)
[2020-03-14] MEDS: CARDIZEM PO SCH ×3 (01:14→20:13)
[2020-03-14 05:48] LABS: BASOPHILS % (AUTO) 0.4 % (0.0-3.0); EOSINOPHILS # (AUTO) 0.1 K/ul (0.0-0.7); EOSINOPHILS % (AUTO) 0.8 % (0.0-7.0); HEMATOCRIT 40.1 % (37.0-47.0); HEMOGLOBIN 13.3 g/dl (12.0-16.0); IMMATURE GRANULOCYTE % (AUTO) 0.2 % (0.0-5.0); LYMPHOCYTES % (AUTO) 26.6 (10.0-50.0); MEAN CORPUSCULAR HEMOGLOBIN 30.4 pg (27.0-31.0); MEAN CORPUSCULAR HGB CONC 33.2 (31.8-35.4); MEAN CORPUSCULAR VOLUME 91.8 fl (81.0-99.0); MONOCYTES # (AUTO) 0.6 K/uL (0.4-2.0); MONOCYTES % (AUTO) 5.5 (0-10); NEUTROPHILS # (AUTO) 7.5 K/ul (2.0-6.9); NEUTROPHILS % (AUTO) 66.5 % (42.2-75.2); PLATELET COUNT 153 10^3/uL (140-440); RED BLOOD COUNT 4.37 10^6/ul (4.20-5.40); WHITE BLOOD COUNT 11.22 K/ul (4.6-10.2)
[2020-03-14 05:54] LABS: ALBUMIN 3.96 g/dL (3.5-5.0); ALKALINE PHOSPHATASE 110.2 U/L (53-141); ASPARTATE AMINO TRANSFERASE 32.7 U/L (14-36); BILIRUBIN,TOTAL 0.94 mg/dL (0.2-1.3); BLOOD UREA NITROGEN 14.3 mg/dL (7-17); CALCIUM 9.32 mg/dL (8.4-10.2); CHLORIDE 101.5 mmol/L (98-107); CREATINE KINASE 108.3 U/L (30-135); CREATININE 1.22 mg/dL (0.60-1.30); GLUCOSE 118.5 mg/dL (74-106); POTASSIUM 4.08 mmol/L (3.5-5.1); SODIUM 137.4 mmol/L (134.5-145); TOTAL PROTEIN 7.14 g/dL (6.3-8.2)
[2020-03-14] MEDS: SYNTHROID PO SCH (06:02)
[2020-03-14 06:08] LABS: TROPONIN I < 0.012 ng/ml (0.0000-0.120)
[2020-03-14] MEDS: ZESTORETIC 20-12.5 MG TAB PO SCH (08:18)
[2020-03-14] MEDS: NEURONTIN PO SCH ×3 (08:18→20:14)
[2020-03-14] MEDS: NORCO 7.5-325 PO SCH ×3 (08:19→20:14)
[2020-03-14] MEDS ORDERED: HUMALOG MIX 75-25 SUBCUT PRN ×2 (08:23→08:30)
[2020-03-14] MEDS ORDERED: PROTONIX PO SCH (09:00)
[2020-03-14] MEDS ORDERED: LOVENOX SUBCUT SCH ×2 (09:00)
[2020-03-14] MEDS ORDERED: [UNRECOGNIZED DRUG - OTHER] IH SCH (09:00)
[2020-03-14] MEDS ORDERED: FORMOTEROL IH SCH (09:00)
[2020-03-14] MEDS ORDERED: GLYCOPYRROLATE IH SCH (09:00)
[2020-03-14] MEDS: ANORO ELLIPTA 62.5-25 MCG INH IH SCH (09:04)
[2020-03-14] MEDS: XANAX PO PRN ×2 (09:10→20:20)
[2020-03-14] MEDS: HUMALOG MIX 75-25 SUBCUT PRN ×2 (12:01→21:08)
[2020-03-14] MEDS: NON-FORMULARY MEDICATION (Liraglutide [Victoza 2-Pak] 0.6 MG/0.1 ML pen injector) SUBCUT SCH (12:05)
[2020-03-14 13:52] LABS: CREATINE KINASE 111.4 U/L (30-135)
[2020-03-14 14:11] LABS: TROPONIN I < 0.012 ng/ml (0.0000-0.120)
[2020-03-14] MEDS: PROTONIX PO SCH (16:32)
[2020-03-14] MEDS: LOPRESSOR PO SCH (20:14)
[2020-03-15] MEDS: PROTONIX PO SCH ×2 (05:58→17:16)
[2020-03-15] MEDS: SYNTHROID PO SCH (05:58)
[2020-03-15 06:08] LABS: BASOPHILS % (AUTO) 0.4 % (0.0-3.0); EOSINOPHILS # (AUTO) 0.1 K/ul (0.0-0.7); EOSINOPHILS % (AUTO) 1.3 % (0.0-7.0); HEMATOCRIT 38.2 % (37.0-47.0); HEMOGLOBIN 12.7 g/dl (12.0-16.0); IMMATURE GRANULOCYTE % (AUTO) 0.1 % (0.0-5.0); LYMPHOCYTES # (AUTO) 2.4 K/uL (0.60-3.4); LYMPHOCYTES % (AUTO) 34.3 (10.0-50.0); MEAN CORPUSCULAR HEMOGLOBIN 30.7 pg (27.0-31.0); MEAN CORPUSCULAR HGB CONC 33.2 (31.8-35.4); MEAN CORPUSCULAR VOLUME 92.3 fl (81.0-99.0); MONOCYTES # (AUTO) 0.4 K/uL (0.4-2.0); MONOCYTES % (AUTO) 5.9 (0-10); NEUTROPHILS # (AUTO) 4.1 K/ul (2.0-6.9); PLATELET COUNT 125 10^3/uL (140-440); RDW COEFFICIENT OF VARIATION 14.2 % (11.6-14.8); RED BLOOD COUNT 4.14 10^6/ul (4.20-5.40); WHITE BLOOD COUNT 6.99 K/ul (4.6-10.2)
[2020-03-15 06:20] LABS: ALANINE AMINOTRANSFERASE 20.6 U/L (0-35); ALBUMIN 3.86 g/dL (3.5-5.0); ALKALINE PHOSPHATASE 102.9 U/L (53-141); ASPARTATE AMINO TRANSFERASE 28.7 U/L (14-36); BILIRUBIN,TOTAL 0.57 mg/dL (0.2-1.3); BLOOD UREA NITROGEN 17.5 mg/dL (7-17); CALCIUM 8.91 mg/dL (8.4-10.2); CHLORIDE 100.4 mmol/L (98-107); CREATININE 1.34 mg/dL (0.60-1.30); GLUCOSE 161.2 mg/dL (74-106); POTASSIUM 4.1 mmol/L (3.5-5.1); SODIUM 137.7 mmol/L (134.5-145); TOTAL PROTEIN 7.03 g/dL (6.3-8.2)
[2020-03-15] MEDS: ANORO ELLIPTA 62.5-25 MCG INH IH SCH (09:14)
[2020-03-15] MEDS: ASPIRIN CHEWABLE PO SCH (09:14)
[2020-03-15] MEDS: NEURONTIN PO SCH ×3 (09:14→20:25)
[2020-03-15] MEDS: CARDIZEM PO SCH ×2 (09:15→20:25)
[2020-03-15] MEDS: ZESTORETIC 20-12.5 MG TAB PO SCH (09:15)
[2020-03-15] MEDS: HUMALOG MIX 75-25 SUBCUT PRN ×3 (09:16→20:53)
[2020-03-15] MEDS: NORCO 7.5-325 PO SCH ×3 (09:16→20:25)
[2020-03-15] MEDS: LOVENOX SUBCUT SCH ×2 (09:26→20:23)
--- NOTE | 2020-03-15 09:35 | PCM.PROG ---
Attending Provider: ATTENDING PROVIDER: Dr. JOYCE WANG This patient is seen with Bebe Shearer, Nurse Practitioner. DATE OF SERVICE: 03/15/20 SUBJECTIVE: This 64 year old /WHITE F was hospitalized 03/13/20. The patient is resting comfortably. She has had no palpitations since yesterday. Denies any chest pain or shortness of breath. She has Holter monitor one. Will have an echo today. REVIEW OF SYSTEMS: CONSTITUTIONAL: No night sweats. No fatigue, malaise, lethargy. No fever or chills. HEENT: Eyes: No visual changes. No eye pain. No eye discharge. ENT: No runny nose. No epistaxis. No sinus pain. No odynophagia. No congestion. RESPIRATORY: No cough, no congestion. No hemoptysis. No shortness of breath. CARDIOVASCULAR: No angina symptoms. No CHF symptoms. No atypical chest pain for CAD. No palpitations. No orthopnea.. GASTROINTESTINAL: No abdominal pain. No nausea or vomiting. No diarrhea or constipation. No hematemesis. No hematochezia. GENITOURINARY: No urgency. No frequency. No dysuria. No hematuria. No obstructive symptoms. No discharge. No pain. No significant abnormal bleeding. MUSCULOSKELETAL: No musculoskeletal pain; no joint swelling. NEUROLOGICAL: Awake, alert, oriented to time, place and person. No headache. No neck pain. No syncope. No seizures. No dizziness. PSYCHIATRIC: Not anxious. No depression. No suicidal thoughts. No homicidal thoughts. SKIN: No rash. No lesions. No wounds. ENDOCRINE: No unexplained weight loss. No weight gain. HEMATOLOGIC/LYMPHATIC: No anemia. No purpura. No petechiae. No prolonged or excessive bleeding. No palpable lymph nodes. PHYSICAL EXAMINATION: GENERAL: The patient is awake, alert and oriented, sitting in bed in no distress. VITAL SIGNS: Temperature 97.6 F, Pulse 71, Respiratory Rate 18, BP 108/52, Pulse Ox 96% HEENT: Head normocephalic, atraumatic. Eyes: Extraocular muscles are intact. Pupils are equal, round and reactive to light and accommodation. Ears: No lesions. Nose appeared normal. Throat: No exudate or erythema. NECK: Supple. No JVD, no carotid bruit. No lymphadenopathy or thyromegaly. LUNGS: Diminished breath sounds. Clear to auscultation. Percussion note normal. Chest symmetrical. HEART: S1, S2, no S3. No murmurs. No cyanosis or clubbing. No ascites. Pulses: Dorsalis pedis and posterior tibial pulses +1 to +2 both sides. ABDOMEN: Soft. Non-tender. Bowel sounds active. No CVA tenderness. No mass felt. EXTREMITIES: No edema. Full range of motion of all extremities, equal. NEUROLOGIC: No focal deficit. Cranial nerves II through XII are grossly intact. No headache, no double vision or headache. SKIN: Not dry. Intact. Turgor-normal. LYMPHATIC: No palpable lymph nodes/no lymphedema. MUSCULOSKELETAL: Normal joints with no swelling. Muscle tone is normal. LAB REVIEW: 03/15/20 05:40 03/15/20 05:40 03/15/20 05:40: Sodium 137.7, Potassium 4.10, Chloride 100.4, Carbon Dioxide 29.0, Anion Gap 12.40, BUN 17.5 H, Creatinine 1.34 H, Estimated GFR (MDRD) 40. 00, BUN/Creatinine Ratio 13.05, Glucose 161.2 H, Calcium 8.91, Total Bilirubin 0.57, AST 28.7, ALT 20.6, Alkaline Phosphatase 102.9, Total Protein 7.03, Albumin 3.86, Globulin 3.17, Albumin/Globulin Ratio 1.21 03/15/20 05:40: WBC 6.99, RBC 4.14 L, Hgb 12.7, Hct 38.2, MCV 92.3, MCH 30.7, MCHC 33.2, RDW Coeff of [place] 14.2, Plt Count 125 L, Immature Gran % (Auto) 0.1, Neut % (Auto) 58.0, Lymph % (Auto) 34.3, [place] % (Auto) 5.9, Eos % (Auto) 1.3, Baso % (Auto) 0.4, Neut # (Auto) 4.1, Lymph # (Auto) 2.4, [place] # (Auto) 0.4, Eos # (Auto) 0.1, Baso # (Auto) 0.0, Immature Gran # (Auto) 0.0 03/14/20 13:29: Total Creatine Kinase 111.4, Troponin I < 0.012 ASSESSMENT: Please see below. 1. Episode of atrial fibrillation 2. PAC's 3. Hypertension 4. COPD 5. Obesity 6. Diabetes Mellitus type 2 PLAN: 1. Continue Holter [place] 2. 2D echo today Plan and coordination of the patient's care discussed in the presence of Nando khalil and nurse. SCRIBED BY: SHAHANA WEIR Orthopedics Teacher scribed while in presence of service performed by Dr. Wang/Bebe Shearer APRN on 03/15/20 ([id number])
--- NOTE | 2020-03-15 11:23 | HP ---
DATE OF SERVICE: 03/13/20 HISTORY OF PRESENT ILLNESS: 64-year-old white female hospitalized with atrial fibrillation with rapid ventricular response. The patient started having palpitation at 6:30 p.m. and she ended up in the emergency room at 7 p.m. The patient has some shortness of breath associated with it and denied any chest pain in the emergency room. REVIEW OF SYSTEMS: CONSTITUTIONAL: Fatigue and weakness. No night sweats. No malaise, lethargy. No fever or chills. HEENT: Eyes: No visual changes. No eye pain. No eye discharge. ENT: No runny nose. No epistaxis. No sinus pain. No sore throat. No odynophagia. No congestion. RESPIRATORY: Shortness of breath. No cough, no congestion. No hemoptysis. CARDIOVASCULAR: Palpitation of 1/2 hour duration with shortness of breath. No angina symptoms. No CHF symptoms. No atypical chest pain for CAD. No PND. No orthopnea. GASTROINTESTINAL: No abdominal pain. No nausea or vomiting. No diarrhea or constipation. No hematemesis. No hematochezia. GENITOURINARY: No urgency. No frequency. No dysuria. No hematuria. No obstructive symptoms. No discharge. No pain. No significant abnormal bleeding. MUSCULOSKELETAL: No musculoskeletal pain; no joint swelling. NEUROLOGICAL: No headache. No neck pain. No syncope. No seizures. No dizziness. PSYCHIATRIC: Not anxious. No depression. No suicidal thoughts. No homicidal thoughts. SKIN: No rash. No lesions. No wounds. ENDOCRINE: No unexplained weight loss. No weight gain. HEMATOLOGIC/LYMPHATIC: No anemia. No purpura. No petechiae. No prolonged or excessive bleeding. No palpable lymph nodes. ALLERGIES: EPINEPHRINE, FLAGYL, NAPROSYN, PENICILLIN, SULFAMETHIAZOLE, BACTRIM, VANCOMYCIN PERSONAL/FAMILY/SOCIAL HISTORY: The patient is single, lives by herself. Former smoker. No alcohol abuse. Performs all activity of daily living. She is intelligent. The patient is a full code. The patient is being taken care of by son, Ron Chase and granddaughter to some extent. MEDICATIONS: Levothyroxine 75 mcg p.o. daily Pantoprazole 40 mg twice a day Xanax 0.5 mg t.i.d. Metoprolol 50 at bedtime Albuterol inhaler Hydrocodone t.i.d. p.r.n. Lisinopril Bevespi Victoza Hydroxyzine Nystatin Gabapentin Insulin - the patient takes Novolog mix 70/30 50 to 100 units subQ three times a day as needed. She has her own sliding scale, she follows it and she does a really good job on it. Humira pen Gabapentin - total dose is 1800 mg MEDICAL/SURGICAL PROBLEMS: Hypothyroidism Morbid obesity Hypertension Dyslipidemia Diabetes mellitus HEART CATH, 2013 DR. PORTILLO PHYSICAL EXAMINATION: GENERAL: The patient is oriented to time, place and person. VITAL SIGNS: Temperature 98.8, pulse on admission 150/min irregular, respiratory rate 20, blood pressure 124/76, oxygen saturation 96% on room air. HEENT: Head normocephalic, atraumatic. Eyes: Extraocular muscles are intact. Pupils are equal, round and reactive to light and accommodation. Ears: No lesions. Nose appeared normal. Throat: No exudate or erythema. NECK: Supple. No JVD, no carotid bruit. No lymphadenopathy or thyromegaly. LUNGS: Clear to auscultation. Percussion note normal. Chest symmetrical. HEART: S1, S2, no S3. No murmurs. No cyanosis or clubbing. No ascites. Pulses: Dorsalis pedis and posterior tibial pulses +1 to +2 bilaterally. ABDOMEN: Soft. Nontender. Bowel sounds active. No CVA tenderness. No mass felt. EXTREMITIES: No edema. Full range of motion of all extremities, equal. NEUROLOGIC: No focal deficit. Cranial nerves II through XII are grossly intact. No headache, no double vision or headache. SKIN: Not dry. Intact. Turgor - normal. LYMPHATIC: No palpable lymph nodes/no lymphedema. MUSCULOSKELETAL: Normal joints with no swelling. Muscle tone is normal. ASSESSMENT: 1. Atrial fibrillation with rapid ventricular response with palpitation and shortness of breath. 2. Hypertension. 3. Dyslipidemia. 4. Morbid obesity. 5. Diabetes mellitus. 6. Generalized osteoarthritis. 7. Hypothyroidism. PLAN: 1. The patient was given two doses of Cardizem IV. IV Cardizem drip she converted after the second dose to sinus rhythm with PACs. The patient is going to be started on 60 mg twice a day of p.o. Cardizem along with her Metoprolol. 2. She is going to be on telemetry and routine telemetry orders. 3. Again, the patient is strongly advised to lose weight, advised to cut down on soda pop, caffeine, coffee, and chocolate. 4. Other education of atrial fibrillation was carried out. She is going to be on Lovenox. Will have holter monitor. This is the first episode the patient had. She says that she has palpitations maybe once a month, less than 1 to 2 min. The patient is not giving convincing palpitation history consistent with atrial fibrillation that would require fci blood thinner but will evaluate her while she is in the hospital. ADDENDUM: Additional diagnoses: 1. History of urinary incontinence followed by Dr. Staples, [place], [place]. 2. Status post lumbar surgery. 3. D & C, June, 4. Status post cholecystectomy. 5. Heart cath, 2015, Dr. Portillo, normal. 6. Spine wedging, T4-T7. 7. Neuropathy, likely diabetic. 8. 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 9. Psorias followed by Dr. Alcala, Dermatology, [place], [place] MEDICATIONS: The patient is on Pravachol 20 mg p.o. daily. LABORATORY: On admission 03/13/20, hemoglobin 14.5, hematocrit 42, WBC 13,000, normal differential, creatinine 1.2, BUN 15, GFR 44, AST 41, ALT 27. CK-MB negative. Troponin negative. TSH 2.2 normal. VITAL SIGNS: 03/13/20 in ER: Temperature 97.6, pulse 88, respiratory rate 20, BP 150/87, pulse ox 95% on room air. TIME SPENT: More than 30 minutes. Plan and coordination of the patient's care discussed in the presence of nurse. ASTRID
[2020-03-15] MEDS: NON-FORMULARY MEDICATION (Liraglutide [Victoza 2-Pak] 0.6 MG/0.1 ML pen injector) SUBCUT SCH (12:55)
[2020-03-15] MEDS: LOPRESSOR PO SCH (20:25)
[2020-03-15] MEDS: XANAX PO PRN (20:26)
[2020-03-16 05:13] VITALS: TEMP 97.4
[2020-03-16] MEDS: PROTONIX PO SCH (05:47)
[2020-03-16] MEDS: SYNTHROID PO SCH (05:47)
[2020-03-16 05:51] LABS: BASOPHILS % (AUTO) 0.3 % (0.0-3.0); EOSINOPHILS # (AUTO) 0.1 K/ul (0.0-0.7); EOSINOPHILS % (AUTO) 0.9 % (0.0-7.0); HEMATOCRIT 36.9 % (37.0-47.0); HEMOGLOBIN 12.4 g/dl (12.0-16.0); IMMATURE GRANULOCYTE % (AUTO) 0.3 % (0.0-5.0); LYMPHOCYTES # (AUTO) 2.1 K/uL (0.60-3.4); LYMPHOCYTES % (AUTO) 30.4 (10.0-50.0); MEAN CORPUSCULAR HEMOGLOBIN 30.4 pg (27.0-31.0); MEAN CORPUSCULAR HGB CONC 33.6 (31.8-35.4); MEAN CORPUSCULAR VOLUME 90.4 fl (81.0-99.0); MONOCYTES # (AUTO) 0.4 K/uL (0.4-2.0); MONOCYTES % (AUTO) 5.7 (0-10); NEUTROPHILS # (AUTO) 4.4 K/ul (2.0-6.9); NEUTROPHILS % (AUTO) 62.4 % (42.2-75.2); PLATELET COUNT 128 10^3/uL (140-440); RDW COEFFICIENT OF VARIATION 13.9 % (11.6-14.8); RED BLOOD COUNT 4.08 10^6/ul (4.20-5.40); WHITE BLOOD COUNT 7.04 K/ul (4.6-10.2)
[2020-03-16 06:11] LABS: ALANINE AMINOTRANSFERASE 24.6 U/L (0-35); ALBUMIN 3.91 g/dL (3.5-5.0); ALKALINE PHOSPHATASE 111.3 U/L (53-141); ASPARTATE AMINO TRANSFERASE 37.6 U/L (14-36); BILIRUBIN,TOTAL 0.51 mg/dL (0.2-1.3); BLOOD UREA NITROGEN 17.9 mg/dL (7-17); CALCIUM 9.16 mg/dL (8.4-10.2); CREATININE 1.21 mg/dL (0.60-1.30); GLUCOSE 135.7 mg/dL (74-106); POTASSIUM 4.16 mmol/L (3.5-5.1); SODIUM 136.3 mmol/L (134.5-145); TOTAL PROTEIN 7.03 g/dL (6.3-8.2)
[2020-03-16] MEDS: ZESTORETIC 20-12.5 MG TAB PO SCH (09:01)
[2020-03-16] MEDS: NEURONTIN PO SCH (09:01)
[2020-03-16] MEDS: ASPIRIN CHEWABLE PO SCH (09:01)
[2020-03-16] MEDS: CARDIZEM PO SCH (09:02)
[2020-03-16] MEDS: NORCO 7.5-325 PO SCH (09:02)
[2020-03-16] MEDS: ANORO ELLIPTA 62.5-25 MCG INH IH SCH (09:03)
[2020-03-16] MEDS: LOVENOX SUBCUT SCH (09:05)
--- NOTE | 2020-03-16 09:45 | PCM.PROG ---
Attending Provider: ATTENDING PROVIDER: Dr. JOYCE MCINTYRE DATE OF SERVICE: 03/16/20 SUBJECTIVE: This 64 year old /WHITE F was hospitalized 03/13/20 with atrial fibrillation with rapid ventricular response. The patient is feeling better has converted to sinus rhythm. Telemetry showed sinus rhythm with PAC's, little less few. Again discussed Novel blood thinners. Considering this is the patient first episode and LV function with normal left atrial size the patient is going to be treated with Cardizem 50mg BID and Metoprolol split twice a day. Advised to lose weight as the patient is morbidly obese. Advised to cut down on caffeine drinks. Holter monitor showed no atrial fibrillation. She is eligible for Holter monitor every 6 months. Symptoms of atrial fibrillation discussed. The patient is a reliable historian. At the present time she has declined Novel blood thinners. CHADS score is approximately 5 or more with persistent atrial fibrillation or paroxysmal atrial fibrillation. High risk for CVA discussed with her. REVIEW OF SYSTEMS: CONSTITUTIONAL: No night sweats. No fatigue, malaise, lethargy. No fever or chills. HEENT: Eyes: No visual changes. No eye pain. No eye discharge. ENT: No runny nose. No epistaxis. No sinus pain. No odynophagia. No congestion. RESPIRATORY: No cough, no congestion. No hemoptysis. No shortness of breath. CARDIOVASCULAR: No angina symptoms. No CHF symptoms. No atypical chest pain for CAD. No palpitations. No orthopnea.. GASTROINTESTINAL: No abdominal pain. No nausea or vomiting. No diarrhea or constipation. No hematemesis. No hematochezia. GENITOURINARY: No urgency. No frequency. No dysuria. No hematuria. No obstruc tive symptoms. No discharge. No pain. No significant abnormal bleeding. MUSCULOSKELETAL: No musculoskeletal pain; no joint swelling. NEUROLOGICAL: Awake, alert, oriented to time, place and person. No headache. No neck pain. No syncope. No seizures. No dizziness. PSYCHIATRIC: Not anxious. No depression. No suicidal thoughts. No homicidal thoughts. SKIN: No rash. No lesions. No wounds. ENDOCRINE: No unexplained weight loss. No weight gain. HEMATOLOGIC/LYMPHATIC: No anemia. No purpura. No petechiae. No prolonged or excessive bleeding. No palpable lymph nodes. PHYSICAL EXAMINATION: GENERAL: The patient is awake, alert and oriented, sitting in bed in no distress. VITAL SIGNS: Temperature 97.4 F, Pulse 62, Respiratory Rate 18, BP 110/67, Pulse Ox 98% HEENT: Head normocephalic, atraumatic. Eyes: Extraocular muscles are intact. Pupils are equal, round and reactive to light and accommodation. Ears: No lesions. Nose appeared normal. Throat: No exudate or erythema. NECK: Supple. No JVD, no carotid bruit. No lymphadenopathy or thyromegaly. LUNGS: Clear to auscultation. Percussion note normal. Chest symmetrical. HEART: S1, S2, no S3. No murmurs. No cyanosis or clubbing. No ascites. Pulses: Dorsalis pedis and posterior tibial pulses +1 to +2 both sides. ABDOMEN: Soft. Non-tender. Bowel sounds active. No CVA tenderness. No mass felt. EXTREMITIES: No edema. Full range of motion of all extremities, equal. NEUROLOGIC: No focal deficit. Cranial nerves II through XII are grossly intact. No headache, no double vision or headache. SKIN: Warm and dry. Intact. Turgor-normal. LYMPHATIC: No palpable lymph nodes/no lymphedema. MUSCULOSKELETAL: Normal joints with no swelling. Muscle tone is normal. LAB REVIEW: 03/16/20 05:20 03/16/20 05:20 03/16/20 05:20: Sodium 136.3, Potassium 4.16, Chloride 100.0, Carbon Dioxide 29.0, Anion Gap 11.46, BUN 17.9 H, Creatinine 1.21, Estimated GFR (MDRD) 45.00, BUN/Creatinine Ratio 14.79, Glucose 135.7 H, Calcium 9.16, Total Bilirubin 0.51, AST 37.6 H, ALT 24.6, Alkaline Phosphatase 111.3, Total Protein 7.03, Albumin 3.91, Globulin 3.12, Albumin/Globulin Ratio 1.25 03/16/20 05:20: WBC 7.04, RBC 4.08 L, Hgb 12.4, Hct 36.9 L, MCV 90.4, MCH 30.4, MCHC 33.6, RDW Coeff of [place] 13.9, Plt Count 128 L, Immature Gran % (Auto) 0.3, Neut % (Auto) 62.4, Lymph % (Auto) 30.4, [place] % (Auto) 5.7, Eos % (Auto) 0.9, Baso % (Auto) 0.3, Neut # (Auto) 4.4, Lymph # (Auto) 2.1, [place] # (Auto) 0.4, Eos # (Auto) 0.1, Baso # (Auto) 0.0, Immature Gran # (Auto) 0.0 ASSESSMENT: Please see below. 1. Atrial fibrillation with rapid ventricular response converted to sinus rhythm after two doses of Cardizem IV. Controlled rate with Cardizem PO. PLAN: 1. Pravastatin continued, not listed in present medications. 3. She has her own way of controlling sugars and doing well. No hypoglycemia 4. Multiple risk factors for coronary artery disease discussed. The patient had heart cath [place] [address] Russo that was normal 5. The patient will be seen as an outpatient. Plan and coordination of the patient's care discussed in the presence of Heel Dipper and nurse. SCRIBED BY: SHAHANA WEIR Set Up And Lay Out Inspector scribed while in presence of service performed by Dr. JOYCE MCINTYRE on 03/16/20 ([id number])
--- NOTE | 2020-03-16 10:04 | DS ---
DATE OF SERVICE: 03/16/2020 FINAL DIAGNOSIS: EPISODE OF ATRIAL FIB PACs HYPERTENSION COPD OBESITY DIABETES MELLITUS TYPE 2 HISTORY OF: CARDIAC DYSRHYTHMIAS- FREQUENT PACS CHEST PAIN, ETIOLOGY, NONCARDIAC HYPERTENSION DYSLIPIDEMIA HYPOTHYROIDISM CHRONIC LUNG DISEASE DIABETES MELLITUS- 11/2019 - A1C 5.8 MORBID OBESITY METABOLIC SYNDROME FATTY LIVER GENERALIZED PAIN- FOLLOWED BY DR. HUANG NEUROPATHY- DIABETIC DJD OF THE SPINE GENERALIZED OSTEOARTHRITIS FORMER SMOKER DIVERTICULOSIS SURGICAL PROCEDURES: D AND C CHOLECYSTECTOMY 1976 BACK SURGERY, 2008 OVARIES REMOVED, 2008 TUBAL, 1977 HEART CATH, 2015 DR. LINDSEY SIGALA VITALS: Temp Pulse Resp BP Pulse Ox 97.4 F L 62 18 110/67 98 03/16/20 05:10 03/16/20 05:10 03/16/20 05:10 03/16/20 05:10 03/16/20 05:10 DISCHARGE INSTRUCTIONS: DISCHARGE HOME TODAY: MARCH 16, 2020. BLOOD SUGARS: CHECK 3 TIMES DAILY AND USE INSULIN ACCORDING TO DR. MCINTYRE'S PROTOCOL ( PROVIDED. SEE DR. MCINTYRE/ YAYA PATHAK APRN/ DANDRE TO APRN IN THE OFFICE. CALL [phone] FOR A MORNING APPOINTMENT FOR NEXT OR THURSDAY. CODE STATUS: FULL CODE. TAKE THESE MEDICATIONS AT HOME: Hydrocodone Bitart/Acetaminophen (Hydrocodone Bit/Acetaminophen 7.5/325 Mg Tablet) 1 tab PO TID [facility] Last Admin: 03/16/20 09:02 Dose: 1 tab Documented by: Albuterol Sulfate (Albuterol Sulfate (Ventolin Hfa) 18 Gm 1 Puff With Spacer) 1 puff IH RTQ6H PRN PRN Reason: dyspnea Alprazolam (Alprazolam 0.5 Mg Tablet) 0.5 mg PO TID PRN PRN Reason: anxiety Last Admin: 03/15/20 20:26 Dose: 0.5 mg Documented by: Aspirin (Aspirin 81 Mg Tab.Chew) 81 mg PO DAILYWM [facility] --- (NEW) Last Admin: 03/16/20 09:01 Dose: 81 mg Documented by: Diltiazem HCl (Diltiazem Hcl 60 Mg Tablet) 60 mg PO Q12HR [facility] -- (NEW) Last Admin: 03/16/20 09:02 Dose: 60 mg Documented by: Gabapentin (Gabapentin 300 Mg Capsule) 600 mG IN AM AND 1,200 MG AT BEDTIME [facility] Last Admin: 03/16/20 09:01 Dose: 600 mg Documented by: Lisinopril/HCTZ (Lisinopril/Hydrochlorothiazide 20/12.5 Tablet) 2 tab PO DAILY [facility] Last Admin: 03/16/20 09:01 Dose: 2 tab Documented by: Hydroxyzine HCl (Hydroxyzine Hcl 25 Mg Tablet) 25 mg PO TID PRN PRN Reason: itching Insulin NOVOLOG MIX 70/30 100 Unit/Ml) PER PROTOCOL SUBCUT TIDWM PRN; DR. MCINTYRE Protocol PRN Reason: Hyperglycemia Last Admin: 03/15/20 20:53 Dose: 4 unit Documented by: Levothyroxine Sodium (Levothyroxine Sodium 75 Mcg Tablet) 75 mcg PO QDAC [facility] Last Admin: 03/16/20 05:47 Dose: 75 mcg Documented by: Metoprolol Tartrate (Metoprolol Tartrate 50 Mg Tablet) 25 MG PO BID [facility] -- (CHANGED) Last Admin: 03/15/20 20:25 Dose: 50 mg Documented by: Non-Formulary Medication (Liraglutide [Victoza 2-[place]]) 1.2 mg SUBCUT 1200 [facility] Last Admin: 03/15/20 12:55 Dose: 1.2 mg Documented by: Nystatin (Nystatin 15 Gm Powder) 1 applic TP BID PRN PRN Reason: Redness and irritation Pantoprazole Sodium (Pantoprazole Sodium 40 Mg Tablet.) 40 mg PO BIDAC [facility] Last Admin: 03/16/20 05:47 Dose: 40 mg Documented by: BEVESPI AEROSPHERE 2 INHALATION BID ADALIMUMAB [HUMIRA PEN] 40 MG SQ Q 2 W PRAVACHOL 40 MG PO DAILY -- (CHANGED) ALLERGIES: epinephrine Adverse Reaction (Mild, Verified 03/13/20 19:29) Rash metronidazole [From Flagyl] Adverse Reaction (Verified 03/13/20 19:29) Diarrhea naproxen [From Naprosyn] Adverse Reaction (Verified 03/13/20 19:29) Vomiting Penicillins Adverse Reaction (Verified 03/13/20 19:29) Hives Sulfa (Sulfonamide Antibiotics) Adverse Reaction (Verified 03/13/20 19:29) Hives sulfamethoxazole [From Bactrim] Adverse Reaction (Verified 03/13/20 19:29) Hives trimethoprim [From Bactrim] Adverse Reaction (Verified 03/13/20 19:29) Hives vancomycin Adverse Reaction (Verified 03/13/20 19:29) Unknown DISCONTINUED MEDICATIONS: NONE NEW PRESCRIPTIONS: ASPIRIN 81 MG PO DAILY CARDIZEM 60 MG PO BID CHANGE - METOPROLOL TO 25 MG PO BID CHANGE - PRAVACHOL 40 MG PO DAILY SMOKING: NON- APPLICABLE DISEASE SPECIFIC EDUCATION: HYPERTENSION ATRIAL FIBRILLATION COPD DM TYPE 2 COVID ASPIRIN WEIGHT LOSS LAB REVIEW: 03/16/20 05:20 03/16/20 05:20 03/16/20 05:20: Sodium 136.3, Potassium 4.16, Chloride 100.0, Carbon Dioxide 29.0, Anion Gap 11.46, BUN 17.9 H, Creatinine 1.21, Estimated GFR (MDRD) 45.00, BUN/Creatinine Ratio 14.79, Glucose 135.7 H, Calcium 9.16, Total Bilirubin 0.51, AST 37.6 H, ALT 24.6, Alkaline Phosphatase 111.3, Total Protein 7.03, Albumin 3.91, Globulin 3.12, Albumin/Globulin Ratio 1.25 03/16/20 05:20: WBC 7.04, RBC 4.08 L, Hgb 12.4, Hct 36.9 L, MCV 90.4, MCH 30.4, MCHC 33.6, RDW Coeff of Reg[place] 13.9, Plt Count 128 L, Immature Gran % (Auto) 0.3, Neut % (Auto) 62.4, Lymph % (Auto) 30.4, [place] % (Auto) 5.7, Eos % (Auto) 0.9, Baso % (Auto) 0.3, Neut # (Auto) 4.4, Lymph # (Auto) 2.1, [place] # (Auto) 0.4, Eos # (Auto) 0.1, Baso # (Auto) 0.0, Immature Gran # (Auto) 0.0 ACTIVITY: UP TOLERATED IN THE HOME WITH FREQUENT REST PERIODS NO STRENUOUS ACTIVITY STAY HOME UNTIL DOCTOR FOLLOW UP DIET: HEART HEALTHY, CONSISTENT CARBOHYDRATE AND NO CONCENTRATED SWEETS LIMIT [place]FFEINE INTAKE HOSPITAL COURSE: 64 year old white female hospitalized with atrial fibrillation with rapid ventricular response. The patient was gave two 15mg of Cardizem. Cardiazem drip later on discontinue Cardizem 50mg twice and Metoprolol 50mg a day and done well. Her echo showed LVH function with normal contractility, LV size and valves are normal. MIR score was approximately 5. If she has persistent atrial fibrillation or paroxysmal atrial fibrillation which is sustained then she would have been put on Novel blood thinners. Discussed with the patient. First episode and no further even on Holter Monitor. The patient is going to be discharged with Cardizem 60mg PO BID and split dose of Metoprolol. Metoprolol will be increase to 40mg. The patient is encouraged to lose weight. advised to cut down on caffeine. She is advised to monitor atrial fibrillation symptoms. She is eligible for Holter Monitor every 6 months. CONDITION: Stable. PROGNOSIS: Guarded considering all comorbidities. TIME SPENT: More than 60 minutes. MTDD
--- NOTE | 2020-03-16 10:25 | PN ---
DATE OF SERVICE: 03/14/20 SUBJECTIVE: 64-year-old white female hospitalized with atrial fibrillation with rapid ventricular response. The patient's complaint was shortness of breath. There was no chest pain, no PND, no orthopnea. The patient was converted after two doses of Cardizem and IV drip was started. The patient is off IV Cardizem drip and is on p.o. 60 mg twice a day. Cardizem along with Metoprolol 50 every morning. The patient is feeling better. REVIEW OF SYSTEMS: CONSTITUTIONAL: No night sweats. No fatigue, malaise, lethargy. No fever or chills. HEENT: Eyes: No visual changes. No eye pain. No eye discharge. ENT: No runny nose. No epistaxis. No sinus pain. No sore throat. No odynophagia. No congestion. RESPIRATORY: No cough, no congestion. No hemoptysis. No shortness of breath. CARDIOVASCULAR: No angina symptoms. No CHF symptoms. No atypical chest pain for CAD. No palpitations. No PND. No orthopnea. GASTROINTESTINAL: No abdominal pain. No nausea or vomiting. No diarrhea or constipation. No hematemesis. No hematochezia. GENITOURINARY: No urgency. No frequency. No dysuria. No hematuria. No obstructive symptoms. No discharge. No pain. No significant abnormal bleeding. MUSCULOSKELETAL: No musculoskeletal pain; no joint swelling. NEUROLOGICAL: No headache. No neck pain. No syncope. No seizures. No dizziness. PSYCHIATRIC: Not anxious. No depression. No suicidal thoughts. No homicidal thoughts. SKIN: No rash. No lesions. No wounds. ENDOCRINE: No unexplained weight loss. No weight gain. HEMATOLOGIC/LYMPHATIC: No anemia. No purpura. No petechiae. No prolonged or excessive bleeding. No palpable lymph nodes. PHYSICAL EXAMINATION: GENERAL: The patient is oriented to time, place and person. HEENT: Head normocephalic, atraumatic. Eyes: Extraocular muscles are intact. Pupils are equal, round and reactive to light and accommodation. Ears: No lesions. Nose appeared normal. Throat: No exudate or erythema. NECK: Supple. No JVD, no carotid bruit. No lymphadenopathy or thyromegaly. LUNGS: Decreased breath sounds but clear to auscultation. Percussion note normal. Chest symmetrical. HEART: S1, S2, no S3. No murmurs. No cyanosis or clubbing. No ascites. Pulses: Dorsalis pedis and posterior tibial pulses +1 to +2 bilaterally. ABDOMEN: Soft. Nontender. Bowel sounds active. No CVA tenderness. No mass felt. EXTREMITIES: No edema. Full range of motion of all extremities, equal. NEUROLOGIC: No focal deficit. Cranial nerves II through XII are grossly intact. No headache, no double vision or headache. SKIN: Not dry. Intact. Turgor - normal. LYMPHATIC: No palpable lymph nodes/no lymphedema. MUSCULOSKELETAL: Normal joints with no swelling. Muscle tone is normal. Telemetry reviewed and the patient has sinus rhythm with PACs, at times frequent. Atrial fibrillation noted. On further questioning, the patient's atrial fibrillation was the first documented one. The patient has palpitations off and on lasting a few seconds a couple of times a month. No history of stroke. ASSESSMENT: 1. Atrial fibrillation with rapid ventricular response, now converted to sinus rhythm after Cardizem IV 15 mg second dose. The patient was on drip, Cardizem, for awhile. PLAN: 1. Continue Levothyroxine. T4, TSH seems to be normal. 2. The patient is strongly advised to cut down on caffeine containing products. 3. She is going to be continued on medication as mentioned above. 4. Lovenox 5 mg twice a day, is going to be continued. To be determined whether the patient will be on Novel blood thinners like Eliquis, Xarelto, et cetera. 5. The patient has multiple risk factors for coronary artery disease. Her cath was normal done by Dr. Campos in 2016. Along with that, the patient had practically a stress test with her heart rate of 156 when she came in to the emergency room, more or less like a stress test equivalent with no evidence of ischemia by cardiac markers. TIME SPENT: More than 30 minutes. Plan and coordination of the patient's care discussed in the presence of nurse. ASTRID
--- NOTE | 2020-03-16 10:53 | PN ---
DATE OF SERVICE: 03/15/20 SUBJECTIVE: The patient was seen and examined with the nurse practitioner. The patient's condition is stable. She has frequent PACs at times but otherwise she is in sinus rhythm. REVIEW OF SYSTEMS: CONSTITUTIONAL: No night sweats. No fatigue, malaise, lethargy. No fever or chills. HEENT: Eyes: No visual changes. No eye pain. No eye discharge. ENT: No runny nose. No epistaxis. No sinus pain. No sore throat. No odynophagia. No congestion. RESPIRATORY: No cough, no congestion. No hemoptysis. No shortness of breath. CARDIOVASCULAR: No angina symptoms. No CHF symptoms. No atypical chest pain for CAD. No palpitations. No PND. No orthopnea. GASTROINTESTINAL: No abdominal pain. No nausea or vomiting. No diarrhea or constipation. No hematemesis. No hematochezia. GENITOURINARY: No urgency. No frequency. No dysuria. No hematuria. No obstructive symptoms. No discharge. No pain. No significant abnormal bleeding. MUSCULOSKELETAL: No musculoskeletal pain; no joint swelling. NEUROLOGICAL: No headache. No neck pain. No syncope. No seizures. No dizziness. PSYCHIATRIC: Not anxious. No depression. No suicidal thoughts. No homicidal thoughts. SKIN: No rash. No lesions. No wounds. ENDOCRINE: No unexplained weight loss. No weight gain. HEMATOLOGIC/LYMPHATIC: No anemia. No purpura. No petechiae. No prolonged or excessive bleeding. No palpable lymph nodes. PHYSICAL EXAMINATION: HEENT: Head normocephalic, atraumatic. Eyes: Extraocular muscles are intact. Pupils are equal, round and reactive to light and accommodation. Ears: No lesions. Nose appeared normal. Throat: No exudate or erythema. NECK: Supple. No JVD, no carotid bruit. No lymphadenopathy or thyromegaly. LUNGS: Clear to auscultation. Percussion note normal. Chest symmetrical. HEART: S1, S2, no S3. No murmurs. No cyanosis or clubbing. No ascites. Pulses: Dorsalis pedis and posterior tibial pulses +1 to +2 bilaterally. ABDOMEN: Soft. Nontender. Bowel sounds active. No CVA tenderness. No mass felt. EXTREMITIES: No edema. Full range of motion of all extremities, equal. NEUROLOGIC: No focal deficit. Cranial nerves II through XII are grossly intact. No headache, no double vision or headache. SKIN: Not dry. Intact. Turgor - normal. LYMPHATIC: No palpable lymph nodes/no lymphedema. MUSCULOSKELETAL: Normal joints with no swelling. Muscle tone is normal. The patient had an echocardiogram done which is practically unchanged from the one that was done in November showed LVH, LA cavity enlargement, LV contractility. Valves are normal. I had a long discussion with the patient about Novel blood thinners like Eliquis, Xarelto and the patient declined use of it after I informed that the side effects to it like GI hemorrhage, intracranial hemorrhage. CHADs-VASc score more than 5. It is to be said that this is the first episode that she had which was converted to sinus rhythm. The patient never had atrial fib in the past documented. She doesn't give history consistent with frequent atrial fibrillation lasting more than a couple of minutes. The patient is a reliable historian. According to her, she would not like to jump on any Novel blood thinners with the side effects like this, at the present time. Holter monitor was done which did not show atrial fibrillation. It shows PACs. The patient had no previous history of stroke, CA or cardiomyopathy. LA size is normal. CONDITION: Stable. TIME SPENT: More than 40 minutes. Plan and coordination of the patient's care discussed in the presence of nurse. ASTRID
--- NOTE | 2020-03-16 11:34 | CM.DICTOOL ---
ADMISSION: 03/13/20 23:38 DISCHARGE: MARCH 16, 2020 DATE OF SERVICE: 03/16/20 FINAL DIAGNOSIS EPISODE OF ATRIAL FIB PACs HYPERTENSION COPD OBESITY DIABETES MELLITUS TYPE 2 HX: CARDIAC DYSRHYTHMIAS- FREQUENT PACS CHEST PAIN, ETIOLOGY, NONCARDIAC HYPERTENSION DYSLIPIDEMIA HYPOTHYROIDISM CHRONIC LUNG DISEASE DIABETES MELLITUS- 11/2019 - A1C 5.8 MORBID OBESITY METABOLIC SYNDROME FATTY LIVER GENERALIZED PAIN- FOLLOWED BY DR. HUANG NEUROPATHY- DIABETIC DJD OF THE SPINE GENERALIZED OSTEOARTHRITIS FORMER SMOKER DIVERTICULOSIS SURGICAL PROCEDURES: D AND C CHOLECYSTECTOMY 1976 BACK SURGERY, 2008 OVARIES REMOVED, 2008 TUBAL, 1977 HEART CATH, 2015 DR. LINDSEY SIGALA VITALS Temp Pulse Resp BP Pulse Ox 97.4 F L 62 18 110/67 98 03/16/20 05:10 03/16/20 05:10 03/16/20 05:10 03/16/20 05:10 03/16/20 05:10 TAKE THESE MEDICATIONS AT HOME Hydrocodone Bitart/Acetaminophen (Hydrocodone Bit/Acetaminophen 7.5/325 Mg Tablet) 1 tab PO TID [facility] Last Admin: 03/16/20 09:02 Dose: 1 tab Documented by: Albuterol Sulfate (Albuterol Sulfate (Ventolin Hfa) 18 Gm 1 Puff With Spacer) 1 puff IH RTQ6H PRN PRN Reason: dyspnea Alprazolam (Alprazolam 0.5 Mg Tablet) 0.5 mg PO TID PRN PRN Reason: anxiety Last Admin: 03/15/20 20:26 Dose: 0.5 mg Documented by: Aspirin (Aspirin 81 Mg Tab.Chew) 81 mg PO DAILYWM [facility] --- (NEW) Last Admin: 03/16/20 09:01 Dose: 81 mg Documented by: Diltiazem HCl (Diltiazem Hcl 60 Mg Tablet) 60 mg PO Q12HR [facility] -- (NEW) Last Admin: 03/16/20 09:02 Dose: 60 mg Documented by: Gabapentin (Gabapentin 300 Mg Capsule) 600 mG IN AM AND 1,200 MG AT BEDTIME [facility] Last Admin: 03/16/20 09:01 Dose: 600 mg Documented by: Lisinopril/HCTZ (Lisinopril/Hydrochlorothiazide 20/12.5 Tablet) 2 tab PO DAILY [facility] Last Admin: 03/16/20 09:01 Dose: 2 tab Documented by: Hydroxyzine HCl (Hydroxyzine Hcl 25 Mg Tablet) 25 mg PO TID PRN PRN Reason: itching Insulin NOVOLOG MIX 70/30 100 Unit/Ml) PER PROTOCOL SUBCUT TIDWM PRN; DR. MCINTYRE Protocol PRN Reason: Hyperglycemia Last Admin: 03/15/20 20:53 Dose: 4 unit Documented by: Levothyroxine Sodium (Levothyroxine Sodium 75 Mcg Tablet) 75 mcg PO QDAC [facility] Last Admin: 03/16/20 05:47 Dose: 75 mcg Documented by: Metoprolol Tartrate (Metoprolol Tartrate 50 Mg Tablet) 25 MG PO BID [facility] -- (CHANGED) Last Admin: 03/15/20 20:25 Dose: 50 mg Documented by: Non-Formulary Medication (Liraglutide [Victoza 2-Everett]) 1.2 mg SUBCUT 1200 [facility] Last Admin: 03/15/20 12:55 Dose: 1.2 mg Documented by: Nystatin (Nystatin 15 Gm Powder) 1 applic TP BID PRN PRN Reason: Redness and irritation Pantoprazole Sodium (Pantoprazole Sodium 40 Mg Tablet.) 40 mg PO BIDAC [facility] Last Admin: 03/16/20 05:47 Dose: 40 mg Documented by: BEVESPI AEROSPHERE 2 INHALATION BID ADALIMUMAB [HUMIRA PEN] 40 MG SQ Q 2 W PRAVACHOL 40 MG PO DAILY -- (CHANGED) ALLERGIES epinephrine Adverse Reaction (Mild, Verified 03/13/20 19:29) Rash metronidazole [From Flagyl] Adverse Reaction (Verified 03/13/20 19:29) Diarrhea naproxen [From Naprosyn] Adverse Reaction (Verified 03/13/20 19:29) Vomiting Penicillins Adverse Reaction (Verified 03/13/20 19:29) Hives Sulfa (Sulfonamide Antibiotics) Adverse Reaction (Verified 03/13/20 19:29) Hives sulfamethoxazole [From Bactrim] Adverse Reaction (Verified 03/13/20 19:29) Hives trimethoprim [From Bactrim] Adverse Reaction (Verified 03/13/20 19:29) Hives vancomycin Adverse Reaction (Verified 03/13/20 19:29) Unknown DISCONTINUED MEDICATIONS NONE NEW PRESCRIPTIONS: ASPIRIN 81 MG PO DAILY CARDIZEM 60 MG PO BID CHANGE - METOPROLOL TO 25 MG PO BID CHANGE - PRAVACHOL 40 MG PO DAILY SMOKING: NON- APPLICABLE DISEASE SPECIFIC EDUCATION: HYPERTENSION ATRIAL FIBRILLATION COPD DM TYPE 2 COVID ASPIRIN WE[facility] LAB REVIEW: 03/16/20 05:20 03/16/20 05:20 03/16/20 05:20: Sodium 136.3, Potassium 4.16, Chloride 100.0, Carbon Dioxide 29.0, Anion Gap 11.46, BUN 17.9 H, Creatinine 1.21, Estimated GFR (MDRD) 45.00, BUN/Creatinine Ratio 14.79, Glucose 135.7 H, Calcium 9.16, Total Bilirubin 0.51, AST 37.6 H, ALT 24.6, Alkaline Phosphatase 111.3, Total Protein 7.03, Albumin 3.91, Globulin 3.12, Albumin/Globulin Ratio 1.25 03/16/20 05:20: WBC 7.04, RBC 4.08 L, Hgb 12.4, Hct 36.9 L, MCV 90.4, MCH 30.4, MCHC 33.6, RDW Coeff of Regina 13.9, Plt Count 128 L, Immature Gran % (Auto) 0.3, Neut % (Auto) 62.4, Lymph % (Auto) 30.4, Kimble % (Auto) 5.7, Eos % (Auto) 0.9, Baso % (Auto) 0.3, Neut # (Auto) 4.4, Lymph # (Auto) 2.1, Kimble # (Auto) 0.4, Eos # (Auto) 0.1, Baso # (Auto) 0.0, Immature Gran # (Auto) 0.0 PLAN: DISCHARGE HOME TODAY: MARCH 16, 2020 ACTIVITY: UP TOLERATED IN THE HOME WITH FREQUENT REST PERIODS NO STRENUOUS ACTIVITY STAY HOME UNTIL DOCTOR FOLLOW UP DIET: HEART HEALTHY, CONSISTENT CARBOHYDRATE AND NO CONCENTRATED SWEETS LIMIT CAFFEINE INTAKE BLOOD SUGARS: CHECK 3 TIMES DAILY AND USE INSULIN ACCORDING TO DR. MCINTYRE'S PROTOCOL ( PROVIDED) MD FOLLOW UP: SEE DR. MCINTYRE/ YAYA PATHAK APRN/ DANDRE TO APRN IN THE OFFICE CALL [phone] FOR A MORNING APPOINTMENT FOR NEXT OR THURSDAY CODE STATUS: FULL CODE MRS WALLACE IS ALERT AND ORIENTED X4. NO FURTHER PALPITATIONS OR CHEST PAIN NOTED OR REPORTED. AMBULATES INDEPENDENTLY AND WITH NO FURTHER RAPID HEART RATES WITH ACTIVITY. LUGS ARE CLEAR AND NO COUGH. 98% PULSE OX ON ROOM AIR. CONTINENT OF BOWEL AND BLADDER WITH LAST BM 03/14. NUTRITIONAL AND FLUID INTAKE GOOD. SKIN WARM AND DRY AND INTACT. SHE DOES HAVE SOME REDNESS TO ABDOMINAL FOLDS AND USES NYSTATIN. HAS PSORIASIS LESIONS TO LOWER BACK AND BUTTOCKS. HAS A SON THAT ASSIST AT TIMES. SHE DOES HER OWN DM MANAGEMENT WITH DIET AND INSULIN ADMINISTRATIONS PER HER PREFERENCE. HAVE INSTRUCTED ON DIET AND INSULIN. LIVES AT HOME INDEPENDENTLY AND DOES NOT WANT ANY FURTHER ASSISTANCE. MD YAYA SAUCEDA APRN ALYCE HANNAN, APRN
[2020-03-16 11:46] VITALS: BP 122/74
[2020-03-16] MEDS: NON-FORMULARY MEDICATION (Liraglutide [Victoza 2-Pak] 0.6 MG/0.1 ML pen injector) SUBCUT SCH (12:21)
[2020-03-16] MEDS: HUMALOG MIX 75-25 SUBCUT PRN (12:21)
--- NOTE | 2020-03-16 14:30 | PN ---
03/13/2020: Level 5 03/14/2020: Extensive 03/15/2020: Intermediate 03/16/2020: D as in discharge MTDD
== END 2020-03-16 12:32 | disposition home or self-care (01) | DRG 308 ==
LOC: ED 19:07 → MEDSURG B 23:38
PROVIDERS: ADMIT Internal Medicine; ATTEND Internal Medicine

== ENCOUNTER 2020-06-20 22:25 | Inpatient (IN) ==
[2020-06-20 23:48] LABS: ABG PH 7.36 (7.35-7.45)
[2020-06-21 00:12] LABS: BASOPHILS % (AUTO) 0.4 % (0.0-3.0); EOSINOPHILS % (AUTO) 0.2 % (0.0-7.0); HEMOGLOBIN 12.7 g/dl (12.0-16.0); IMMATURE GRANULOCYTE % (AUTO) 0.4 % (0.0-5.0); LYMPHOCYTES # (AUTO) 1.3 K/uL (0.60-3.4); LYMPHOCYTES % (AUTO) 25.9 (10.0-50.0); MEAN CORPUSCULAR HEMOGLOBIN 29.1 pg (27.0-31.0); MEAN CORPUSCULAR HGB CONC 33.4 (31.8-35.4); MEAN CORPUSCULAR VOLUME 87.2 fl (81.0-99.0); MONOCYTES # (AUTO) 0.4 K/uL (0.4-2.0); MONOCYTES % (AUTO) 7.7 (0-10); NEUTROPHILS # (AUTO) 3.4 K/ul (2.0-6.9); NEUTROPHILS % (AUTO) 65.4 % (42.2-75.2); PLATELET COUNT 133 10^3/uL (140-440); RDW COEFFICIENT OF VARIATION 13.7 % (11.6-14.8); RED BLOOD COUNT 4.36 10^6/ul (4.20-5.40); WHITE BLOOD COUNT 5.18 K/ul (4.6-10.2)
--- NOTE | 2020-06-21 00:12 | DI ---
EXAM: AP single view of the chest. HISTORY: Cough. FINDINGS: The bones are unremarkable. The cardiac silhouette and pulmonary vasculature are within no rmal limits. The costophrenic angles are clear. There are minimal bilateral infiltrates, consistent with pneumonia. Impression: Minimal bilateral infiltrates, consistent with pneumonia.
[2020-06-21 00:16] LABS: ALANINE AMINOTRANSFERASE 19.3 U/L (0-35); ALBUMIN 3.95 g/dL (3.5-5.0); ALKALINE PHOSPHATASE 99.6 U/L (53-141); ASPARTATE AMINO TRANSFERASE 31.9 U/L (14-36); BILIRUBIN,TOTAL 0.95 mg/dL (0.2-1.3); BLOOD UREA NITROGEN 37.2 mg/dL (7-17); CALCIUM 8.51 mg/dL (8.4-10.2); CARBON DIOXIDE 28.1 mmol/L (22-30.0); CHLORIDE 99.7 mmol/L (98-107); CREATINE KINASE 64.4 U/L (30-135); CREATININE 1.82 mg/dL (0.60-1.30); GLUCOSE 165.3 mg/dL (74-106); POTASSIUM 3.85 mmol/L (3.5-5.1); SODIUM 136.5 mmol/L (134.5-145)
--- NOTE | 2020-06-21 00:25 | ED.PDOC ---
General ED Provider: Dr. ILEANA LA Chief Complaint: Respiratory Complaint Stated Complaint: i was dx with covid 19 on (dr rivera told me i was in quarantine till jun 24)--i was checking my oxygen on my cami and it was low--i have felt more sob in the past few days Time Seen by Provider: 06/21/20 00:03 Mode of Arrival: Wheelchair Information Source: Patient Primary Care Provider: JOYCE RIVERA Nursing and Triage Documentation Reviewed and Agree: Yes Does patient meet sepsis criteria?: No System Inflammatory Response Syndrome: Not Applicable Sepsis Protocol: For patient's 13 years and over: Temp is 96.8 and below OR 101 and greater Pulse >90 BPM Resp >20/minute Acutely Altered Mental Status Are patient's symptoms suggestive of a new infection, such as: -Pneumonia -Skin, Soft Tissue -Endocarditis -UTI -Bone, Joint Infection -Implantable Device -Acute Abdominal Infection -Wound Infection -Meningitis -Blood Stream Catheter Infection -Unknown Respiratory Complaint Exam Respiratory Complaint/Exam Onset/Duration: 2-3 days Symptoms Are: Still present Timing: Constant Initial Severity: Mild Current Severity: Mild Location: Chest Character: Reports Non-productive cough and Dry cough Aggravating: Reports URI Alleviating: Reports Bronchodilators History of Healthcare-Acquired Pneumonia: No Tuberculosis Risk Factors: Reports None Home Oxygen Use: No Recent Stress Test: No Recent Echo/LV Function: No Current Antibiotic Use: No Current Asthma Medication Use: No Respiratory Distress: None Inadequate Respiratory Effort: No Dysphagia Present: No Stridor Present: No JVD Present: No Accessory Muscle Use: No Retractions: Not Present Diminished Breath Sounds: No Sinus Tenderness: None Grunting Respirations: No Kussmaul Respirations: No Differential Diagnoses: CHF, Pulmonary Edema, Pneumonia and SARS Quality Indicators For Pneumonia: SpO2 assessed Non-Traumatic Chest Pain Syncope: EKG Performed Review of Systems Review Of Systems Constitutional: Reports No symptoms Eyes: Reports No symptoms Ears, Nose, Mouth, Throat: Reports No symptoms Respiratory: Reports Short of air Cardiac: Reports No symptoms GI: Reports No symptoms : Reports No symptoms Musculoskeletal: Reports No symptoms Skin: Reports No symptoms Neurological: Reports No symptoms Endocrine: Reports No symptoms Hematologic/Lymphatic: Reports No symptoms All Other Systems: Reviewed and Negative [facility] Medical History Anaphylaxis Anxiety Arrhythmia Asthma Atrial fibrillation Cerumen impaction Chest pain Cholecystectomy planned Chronic arthritis Diabetes Diverticulitis Fatty liver Folliculitis History of gastroesophageal reflux (GERD) Hyperlipidemia Hypertension Hyperthyroidism Insulin dependent type 1 diabetes mellitus Irritable bowel syndrome Mitral valve prolapse Myocardial infarct Objective tinnitus Psoriasis Sensorineural hearing loss (SNHL) of both ears Family History FATHER Melanocarcinoma FATHER Hypertension MATERNAL GRANDMOTHER No problems noted. Mother Hypertension Social History Smoking and tobacco status: Former smoker Tobacco: How many years used: 30 Substance use type: does not use Surgical History H/O dilation and curettage H/O tubal ligation History of back surgery Female Reproductive History Menstrual Hx Hysterectomy: No Hx Tubal Ligation: Yes Physical Exam Physical Exam Appearance: Reports Well-appearing Ill-appearing: None Pain Distress: None Eyes: Reports KALYANI, EOMI and Conjunctiva clear ENT: Reports Ears normal, Nose normal and Oropharynx normal Neck: Supple Respiratory: Reports Airway patent, Breath sounds clear and Breath sounds equal Cardiovascular: Reports RRR, Pulses normal, No rub and No murmur GI/: Reports Soft, Nontender, No masses and Bowel sounds normal Musculoskeletal: Reports Normal strength, ROM intact, No edema and No calf tenderness Skin: Reports Warm, Dry and Normal color Neurological: Reports Sensation intact, Motor intact, Reflexes intact, Cranial nerves intact, Alert and Oriented Psychiatric: Reports Affect appropriate and Mood appropriate Interpretation Radiology Interpretation Radiology Interpretation By: Radiologist Radiology Results: Positive Exam Interpreted: Portable CXR EKG Interpretation Time of EKG #1: 00:27 Rate: Normal Rhythm: Sinus Ectopy: None [place]: NL ST Segment: Normal Interpretation: nsr Critical Care Note Critical Care Note Total Critical Care Time (mins): 0 Course Course Hematology/Chemistry: 06/20/20 23:55 06/20/20 23:55 Orders, Labs, Meds: Lab Review 06/20/20 06/20/20 06/20/20 23:42 23:55 23:55 WBC 5.18 RBC 4.36 Hgb 12.7 Hct 38.0 MCV 87.2 MCH 29.1 MCHC 33.4 RDW Coeff of Regina 13.7 Plt Count 133 L Immature Gran % (Auto) 0.4 Neut % (Auto) 65.4 Lymph % (Auto) 25.9 Placer % (Auto) 7.7 Eos % (Auto) 0.2 Baso % (Auto) 0.4 Neut # (Auto) 3.4 Lymph # (Auto) 1.3 Placer # (Auto) 0.4 Eos # (Auto) 0.0 Baso # (Auto) 0.0 Immature Gran # (Auto) 0.0 Puncture Site Rrad Base Excess 0.6 O2 Saturation 87.4 L ABG pH 7.36 ABG pCO2 46.0 H ABG pO2 56.0 L* ABG HCO3 26.0 ABG Total CO2 27.4 H Blaise Test + Hemoglobin 1.1 Oxyhemoglobin 87.2 L Carboxyhemoglobin 2.8 H Total Hemoglobin 21.2 H FiO2 % 21.0 Sodium 136.5 Potassium 3.85 Chloride 99.7 Carbon Dioxide 28.1 Anion Gap 12.55 BUN 37.2 H Creatinine 1.82 H Estimated GFR (MDRD) 28.00 BUN/Creatinine Ratio 20.43 Glucose 165.3 H Lactic Acid Calcium 8.51 Total Bilirubin 0.95 AST 31.9 ALT 19.3 Alkaline Phosphatase 99.6 Total Creatine Kinase 64.4 Troponin I < 0.012 Total Protein 7.20 Albumin 3.95 Globulin 3.25 Albumin/Globulin Ratio 1.21 06/20/20 23:55 WBC RBC Hgb Hct MCV MCH MCHC RDW Coeff of Regina Plt Count Immature Gran % (Auto) Neut % (Auto) Lymph % (Auto) Placer % (Auto) Eos % (Auto) Baso % (Auto) Neut # (Auto) Lymph # (Auto) Placer # (Auto) Eos # (Auto) Baso # (Auto) Immature Gran # (Auto) Puncture Site Base Excess O2 Saturation ABG pH ABG pCO2 ABG pO2 ABG HCO3 ABG Total CO2 Blaise Test Hemoglobin Oxyhemoglobin Carboxyhemoglobin Total Hemoglobin FiO2 % Sodium Potassium Chloride Carbon Dioxide Anion Gap BUN Creatinine Estimated GFR (MDRD) BUN/Creatinine Ratio Glucose Lactic Acid 1.16 Calcium Total Bilirubin AST ALT Alkaline Phosphatase Total Creatine Kinase Troponin I Total Protein Albumin Globulin Albumin/Globulin Ratio Orders Category Date Time Status ABG DRAW REQUEST Stat CARDIO 06/20/20 23:34 Completed EKG-(ED ONLY) Stat CARDIO 06/20/20 23:34 Completed ED SALVAGE SUPERVISOR APPLIED .ONCE EMERGENCY 06/20/20 23:34 Active ABG COOX Stat LAB 06/20/20 23:42 Completed BLOOD CULTURE (ED ONLY) Stat LAB 06/20/20 23:55 Received CBC W/ AUTO DIFF Stat LAB 06/20/20 23:55 Completed COMPREHENSIVE METABOLIC PANEL Stat LAB 06/20/20 23:55 Completed CREATINE KINASE Stat LAB 06/20/20 23:55 Completed LACTIC ACID Stat LAB 06/20/20 23:55 Completed TROPONIN I Stat LAB 06/20/20 23:55 Completed CHEST, 1V AP ONLY Stat RADS 06/20/20 23:34 Completed Vital Signs: Temp Pulse Resp BP Pulse Ox 06/20/20 22:45 97.2 F L 84 20 114/62 91 L Discharge Plan Discharge Patient Disposition: ADMITTED INPATIENT Discharge Problem: Acute respiratory failure, Pneumonia due to 2019 novel coronavirus Prescriptions: No Action pantoprazole 40 MG tablet,delayed release (DR/EC) 40 mg PO BID RF: 0 levothyroxine [Synthroid] 75 MCG tablet 75 mcg PO QDAC RF: 0 alprazolam [Xanax] 0.5 MG tablet 0.5 mg PO TID PRN (Reason: Anxiety) RF: 0 hydroxyzine HCl 25 MG tablet 25 mg PO TID PRN (Reason: itching per patient) RF: 0 nystatin [Nystop] 1 APPLIC powder 1 applic topical BID PRN (Reason: redness, irriation) RF: 0 Bevespi Aerosphere 10.7 GM HFA aerosol inhaler 2 inh inhalation BID RF: 0 Victoza 2-Everett 0.6 MG/0.1 ML pen injector 1.2 mg subcut QNOON RF: 0 gabapentin 600 mg Tablet 600 mg PO DAILY RF: 0 insulin asp prt-insulin aspart [Novolog Mix 70-30FlexPen U-100] 100 unit/mL (70-30) Insulin Pen 80 - 100 unit SUBCUT TIDWM PRN (Reason: Hyperglycemia) RF: 0 gabapentin 600 mg Tablet 1,200 mg PO BEDTIME RF: 0 diltiazem HCl [Cardizem] 60 mg Tablet 60 mg PO BID Qty: 60 RF: 1 aspirin [Enteric Coated Aspirin] 81 mg Tablet,Delayed Release (Dr/Ec) 81 mg PO DAILY Qty: 30 RF: 1 metoprolol tartrate 25 mg Tablet 25 mg PO BID Qty: 60 RF: 1 pravastatin [Pravachol] 40 mg Tablet 40 mg PO DAILY Qty: 30 RF: 1 hydrocodone-acetaminophen 1 TAB tablet 1 tab PO TID RF: 0 albuterol sulfate [Ventolin HFA] 18 GM HFA aerosol inhaler 18 g inhalation Q6H PRN (Reason: shortness of air) RF: 0 furosemide 40 mg tablet 40 mg PO DAILY RF: 0 potassium chloride 10 mEq tablet extended release 10 meq PO DAILY RF: 0 lisinopril 40 mg tablet 40 mg PO DAILY RF: 0 ED Provider: ILEANA LA Condition: Fair Physician Progress Note: []
[2020-06-21 00:28] LABS: TROPONIN I < 0.012 ng/ml (0.0000-0.120)
[2020-06-21] MEDS ORDERED: TYLENOL PO PRN (00:44)
[2020-06-21] MEDS ORDERED: SODIUM CHLORIDE 1,000 ML IV STA (00:44)
[2020-06-21] MEDS ORDERED: VENTOLIN HFA (PER PUFF-WITH SPACER) IH PRN (00:48)
[2020-06-21] MEDS ORDERED: NYSTOP POWDER TP PRN (00:48)
[2020-06-21] MEDS ORDERED: ATARAX PO PRN (00:48)
[2020-06-21] MEDS ORDERED: ROCEPHIN 1 GM/50 ML D5W 1 GM/50 ML BAG IV STA (00:53)
[2020-06-21] MEDS ORDERED: HUMULIN R SUBCUT PRN (00:55)
[2020-06-21] MEDS ORDERED: REMDESIVIR 200 MG in SODIUM CHLORIDE 250 ML IV ONE ×2 (00:56→09:00)
[2020-06-21 02:27] VITALS: BMI 44.4
[2020-06-21] MEDS: VENTOLIN HFA (PER PUFF-WITH SPACER) IH SCH ×3 (04:48→20:13)
[2020-06-21] MEDS: ATROVENT HFA INHALER (PER PUFF-WITH SPACER) IH SCH ×3 (04:48→20:13)
[2020-06-21 05:00] LABS: ABG PH 7.38 (7.35-7.45)
[2020-06-21 06:12] LABS: BASOPHILS % (AUTO) 0.2 % (0.0-3.0); EOSINOPHILS % (AUTO) 0.4 % (0.0-7.0); HEMATOCRIT 35.2 % (37.0-47.0); HEMOGLOBIN 11.8 g/dl (12.0-16.0); IMMATURE GRANULOCYTE % (AUTO) 0.4 % (0.0-5.0); LYMPHOCYTES # (AUTO) 1.3 K/uL (0.60-3.4); LYMPHOCYTES % (AUTO) 28.5 (10.0-50.0); MEAN CORPUSCULAR HEMOGLOBIN 29.4 pg (27.0-31.0); MEAN CORPUSCULAR HGB CONC 33.5 (31.8-35.4); MEAN CORPUSCULAR VOLUME 87.6 fl (81.0-99.0); MONOCYTES # (AUTO) 0.4 K/uL (0.4-2.0); MONOCYTES % (AUTO) 7.7 (0-10); NEUTROPHILS % (AUTO) 62.8 % (42.2-75.2); PLATELET COUNT 100 10^3/uL (140-440); RDW COEFFICIENT OF VARIATION 13.8 % (11.6-14.8); RED BLOOD COUNT 4.02 10^6/ul (4.20-5.40)
[2020-06-21] MEDS: PEPCID PO SCH ×2 (06:26→16:06)
[2020-06-21] MEDS: SYNTHROID PO SCH (06:26)
[2020-06-21 06:29] LABS: ALANINE AMINOTRANSFERASE 17.2 U/L (0-35); ALBUMIN 3.57 g/dL (3.5-5.0); ALKALINE PHOSPHATASE 87.5 U/L (53-141); ASPARTATE AMINO TRANSFERASE 28.5 U/L (14-36); BILIRUBIN,TOTAL 0.75 mg/dL (0.2-1.3); BLOOD UREA NITROGEN 38.8 mg/dL (7-17); CALCIUM 8.31 mg/dL (8.4-10.2); CARBON DIOXIDE 27.1 mmol/L (22-30.0); CHLORIDE 101.1 mmol/L (98-107); CREATININE 1.89 mg/dL (0.60-1.30); GLUCOSE 139.2 mg/dL (74-106); POTASSIUM 3.98 mmol/L (3.5-5.1); PROTHROMBIN TIME 10.8 SEC (9.3-11.0); SODIUM 134.7 mmol/L (134.5-145); TOTAL PROTEIN 6.62 g/dL (6.3-8.2)
[2020-06-21 06:46] LABS: TROPONIN I < 0.012 ng/ml (0.0000-0.120)
[2020-06-21] MEDS ORDERED: VENTOLIN HFA (PER PUFF-WITH SPACER) IH SCH (09:00)
[2020-06-21] MEDS ORDERED: ROCEPHIN 1 GM/50 ML D5W 1 GM/50 ML BAG IV SCH (09:00)
[2020-06-21] MEDS ORDERED: CARDIZEM PO SCH ×2 (09:00→21:00)
[2020-06-21] MEDS: MICRO-K CAP PO SCH (09:10)
[2020-06-21] MEDS: PRAVACHOL PO SCH (09:10)
[2020-06-21] MEDS: DECADRON IM SCH (09:10)
[2020-06-21] MEDS: ZESTRIL PO SCH (09:10)
[2020-06-21] MEDS: LOPRESSOR PO SCH ×2 (09:11→21:41)
[2020-06-21] MEDS: NEURONTIN PO SCH ×2 (09:11→21:41)
[2020-06-21] MEDS: PROTONIX PO SCH ×2 (09:11→16:06)
[2020-06-21] MEDS: NORCO 7.5-325 PO SCH ×3 (09:12→21:41)
[2020-06-21] MEDS: DOXY-100 100 MG in SODIUM CHLORIDE 100 ML IV SCH ×2 (09:12→22:27)
[2020-06-21] MEDS: ZINC-220 PO SCH (09:12)
[2020-06-21] MEDS: LASIX TAB PO SCH (09:12)
[2020-06-21] MEDS: ASPIRIN EC PO SCH (09:12)
[2020-06-21] MEDS: VITAMIN D PO SCH (09:21)
[2020-06-21] MEDS: FORMOTEROL IH SCH ×2 (09:22→21:46)
[2020-06-21] MEDS: [UNRECOGNIZED DRUG - OTHER] IH SCH ×2 (09:22→21:46)
[2020-06-21] MEDS: GLYCOPYRROLATE IH SCH ×2 (09:22→21:46)
[2020-06-21] MEDS: XANAX PO PRN (15:31)
[2020-06-21] MEDS: HUMALOG MIX 75-25 SUBCUT PRN (20:15)
[2020-06-21] MEDS: ROCEPHIN 1 GM/50 ML D5W 1 GM/50 ML BAG IV SCH (21:41)
[2020-06-21] MEDS: CARDIZEM PO SCH (21:41)
[2020-06-22 04:43] LABS: HEMOGLOBIN 11.6 g/dl (12.0-16.0); IMMATURE GRANULOCYTE % (AUTO) 0.3 % (0.0-5.0); LYMPHOCYTES # (AUTO) 0.5 K/uL (0.60-3.4); MEAN CORPUSCULAR HEMOGLOBIN 29.5 pg (27.0-31.0); MEAN CORPUSCULAR HGB CONC 33.1 (31.8-35.4); MEAN CORPUSCULAR VOLUME 89.1 fl (81.0-99.0); MONOCYTES # (AUTO) 0.2 K/uL (0.4-2.0); MONOCYTES % (AUTO) 6.3 (0-10); NEUTROPHILS # (AUTO) 2.6 K/ul (2.0-6.9); NEUTROPHILS % (AUTO) 78.4 % (42.2-75.2); PLATELET COUNT 104 10^3/uL (140-440); RDW COEFFICIENT OF VARIATION 13.6 % (11.6-14.8); RED BLOOD COUNT 3.93 10^6/ul (4.20-5.40); WHITE BLOOD COUNT 3.33 K/ul (4.6-10.2)
[2020-06-22] MEDS: VENTOLIN HFA (PER PUFF-WITH SPACER) IH SCH ×3 (04:55→19:45)
[2020-06-22] MEDS: ATROVENT HFA INHALER (PER PUFF-WITH SPACER) IH SCH ×3 (04:55→19:35)
[2020-06-22 05:00] LABS: ABG PH 7.33 (7.35-7.45)
[2020-06-22 05:01] LABS: ALANINE AMINOTRANSFERASE 16.1 U/L (0-35); ALBUMIN 3.64 g/dL (3.5-5.0); ALKALINE PHOSPHATASE 88.6 U/L (53-141); ASPARTATE AMINO TRANSFERASE 24.9 U/L (14-36); BILIRUBIN,TOTAL 0.35 mg/dL (0.2-1.3); CALCIUM 8.56 mg/dL (8.4-10.2); CARBON DIOXIDE 26.3 mmol/L (22-30.0); CHLORIDE 102.8 mmol/L (98-107); CREATININE 1.67 mg/dL (0.60-1.30); GLUCOSE 202.4 mg/dL (74-106); POTASSIUM 4.81 mmol/L (3.5-5.1); SODIUM 136.4 mmol/L (134.5-145); TOTAL PROTEIN 6.79 g/dL (6.3-8.2)
[2020-06-22 05:04] LABS: PROTHROMBIN TIME 10.8 SEC (9.3-11.0)
[2020-06-22 05:18] LABS: TROPONIN I < 0.012 ng/ml (0.0000-0.120)
[2020-06-22 05:20] LABS: ERYTHROCYTE SEDIMENTATION RATE 51 mm/hr (0-20)
[2020-06-22] MEDS: LASIX TAB PO SCH (06:05)
[2020-06-22] MEDS: PROTONIX PO SCH ×2 (06:06→17:16)
[2020-06-22] MEDS: SYNTHROID PO SCH (06:06)
[2020-06-22] MEDS: HUMALOG MIX 75-25 SUBCUT PRN ×2 (06:06→12:18)
[2020-06-22] MEDS: PEPCID PO SCH ×2 (06:06→17:15)
[2020-06-22 06:11] LABS: C-REACTIVE PROTEIN 76 mg/L (0-10)
[2020-06-22] MEDS: DECADRON IM SCH (09:05)
[2020-06-22] MEDS: CARDIZEM PO SCH ×2 (09:05→20:18)
[2020-06-22] MEDS: VITAMIN D PO SCH (09:05)
[2020-06-22] MEDS: ASPIRIN EC PO SCH (09:06)
[2020-06-22] MEDS: ZINC-220 PO SCH (09:06)
[2020-06-22] MEDS: PRAVACHOL PO SCH (09:06)
[2020-06-22] MEDS: ZESTRIL PO SCH (09:06)
[2020-06-22] MEDS: MICRO-K CAP PO SCH (09:07)
[2020-06-22] MEDS: [UNRECOGNIZED DRUG - OTHER] IH SCH ×2 (09:07→20:19)
[2020-06-22] MEDS: FORMOTEROL IH SCH ×2 (09:07→20:19)
[2020-06-22] MEDS: GLYCOPYRROLATE IH SCH ×2 (09:07→20:19)
[2020-06-22] MEDS: DOXY-100 100 MG in SODIUM CHLORIDE 100 ML IV SCH ×2 (09:07→21:15)
[2020-06-22] MEDS: LOPRESSOR PO SCH ×2 (09:07→20:18)
[2020-06-22] MEDS: NORCO 7.5-325 PO SCH ×3 (09:07→20:18)
[2020-06-22] MEDS: NEURONTIN PO SCH ×2 (09:09→20:18)
--- NOTE | 2020-06-22 09:43 | PCM.PROG ---
Attending Provider: ATTENDING PROVIDER: Dr. JOYCE MCINTYRE DATE OF SERVICE: 06/22/20 SUBJECTIVE: This 65 year old /WHITE F was hospitalized 06/21/20 with Covid-19 pneumonia. The patient's condition has clinically improved. She sounds much better. Hydration status seems to have improved. REVIEW OF SYSTEMS: CONSTITUTIONAL: No night sweats. No fatigue, malaise, lethargy. No fever or chills. HEENT: Eyes: No visual changes. No eye pain. No eye discharge. ENT: No runny nose. No epistaxis. No sinus pain. No odynophagia. No congestion. RESPIRATORY: No cough, no congestion. No hemoptysis. Shortness of breath is a little less. She is up and about in the room with oxygen saturation 99% on 2L. CARDIOVASCULAR: No angina symptoms. No CHF symptoms. No atypical chest pain for CAD. No palpitations. No orthopnea.. GASTROINTESTINAL: No abdominal pain. No nausea or vomiting. No diarrhea or constipation. No hematemesis. No hematochezia. GENITOURINARY: No urgency. No frequency. No dysuria. No hematuria. No obstructive symptoms. No discharge. No pain. No significant abnormal bleeding. MUSCULOSKELETAL: No musculoskeletal pain; no joint swelling. NEUROLOGICAL: Awake, alert, oriented to time, place and person. No headache. No neck pain. No syncope. No seizures. No dizziness. PSYCHIATRIC: Not anxious. No depression. No suicidal thoughts. No homicidal thoughts. SKIN: No rash. No lesions. No wounds. ENDOCRINE: No unexplained weight loss. No weight gain. HEMATOLOGIC/LYMPHATIC: No anemia. No purpura. No petechiae. No prolonged or excessive bleeding. No palpable lymph nodes. PHYSICAL EXAMINATION: GENERAL: The patient is awake, alert and oriented, lying/sitting in bed in no distress. VITAL SIGNS: Temperature 96.9 F, Pulse 59, Respiratory Rate 16, BP 98/59, Pulse Ox 99% HEENT: Head normocephalic, atraumatic. Eyes: Extraocular muscles are intact. Pupils are equal, round and reactive to light and accommodation. Ears: No lesions. Nose appeared normal. Throat: No exudate or erythema. NECK: Supple. No JVD, no carotid bruit. No lymphadenopathy or thyromegaly. LUNGS: Decreased breath sounds with good air entry. Clear to auscultation. Percussion note normal. Chest symmetrical. HEART: S1, S2, no S3. No murmurs. No cyanosis or clubbing. No ascites. Pulses: Dorsalis pedis and posterior tibial pulses +1 to +2 both sides. ABDOMEN: Soft. Non-tender. Bowel sounds active. No CVA tenderness. No mass felt. EXTREMITIES: No edema. Full range of motion of all extremities, equal. NEUROLOGIC: No focal deficit. Cranial nerves II through XII are grossly intact. No headache, no double vision or headache. SKIN: Warm and dry. Intact. Turgor-normal. LYMPHATIC: No palpable lymph nodes/no lymphedema. MUSCULOSKELETAL: Normal joints with no swelling. Muscle tone is normal. LAB REVIEW: 06/22/20 04:15 06/22/20 04:15 06/22/20 04:47: Puncture Site Rr, Base Excess -0.6, O2 Saturation 94.8, ABG pH 7.33 L, ABG pCO2 48.0 H, ABG pO2 80.0 L, ABG HCO3 25.3, ABG Total CO2 26.8 H, Blaise Test +, Hemoglobin 1.2, Oxyhemoglobin 93.1 L, Carboxyhemoglobin 2.4 H, Total Hemoglobin 15.0, O2 Delivery Device Bnc, Oxygen Liter Flow 2.00, FiO2 % 28.0 06/22/20 04:15: ESR 51 H 06/22/20 04:15: Sodium 136.4, Potassium 4.81, Chloride 102.8, Carbon Dioxide 26.3, Anion Gap 12.11, BUN 42.0 H, Creatinine 1.67 H, Estimated GFR (MDRD) 31.00, BUN/Creatinine Ratio 25.14, Glucose 202.4 H D, Calcium 8.56, Total Bilirubin 0.35, AST 24.9, ALT 16.1, Alkaline Phosphatase 88.6, Total Protein 6.79, Albumin 3.64, Globulin 3.15, Albumin/Globulin Ratio 1.15 06/22/20 04:15: WBC 3.33 L, RBC 3.93 L, Hgb 11.6 L, Hct 35.0 L, MCV 89.1, MCH 29.5, MCHC 33.1, RDW Coeff of Regina 13.6, Plt Count 104 L, Immature Gran % (Auto) 0.3, Neut % (Auto) 78.4 H, Lymph % (Auto) 15.0, Terrell % (Auto) 6.3, Eos % (Auto) 0.0, Baso % (Auto) 0.0, Neut # (Auto) 2.6, Lymph # (Auto) 0.5 L, Terrell # (Auto) 0.2 L, Eos # (Auto) 0.0, Baso # (Auto) 0.0, Immature Gran # (Auto) 0.0 06/22/20 04:15: Ferritin 113.00, Troponin I < 0.012 06/22/20 04:15: D-Dimer 760.29 H 06/22/20 04:15: PT 10.8, INR 1.02 06/21/20 05:40: Lactate Dehydrogenase 239 H, C-Reactive Prot, Quant 76 H ASSESSMENT: Please see below. 1. Covid-19 pneumonia seems to be responding to Remdesivir, steroids and antibiotics. 2. Cardiovascular status and diabetes mellitus seems to be under control. The patient has her own way of controlling her blood sugar and she does a good job of it. 3. She has hyperglycemia which is persistent from steroids and she was explained about this finding. 4. The patient is morbidly obese with chronic lung disease, history of smoking that seems to be the underlying problem which is going to be the deciding factor on how far she will recover from the Covid-19 pneumonia. PLAN: 1. Will continue the same management. 2. C-reactive protein is 76 with normal being 10. Ferritin is normal. GFR is improved slightly from yesterday along with creatinine. Plan and coordination of the patient's care discussed in the presence of Firearms Specialist and nurse. CONDITION: At the present time, she is in stable condition. SCRIBED BY: SHELLEY CLAYTON, Vessel Scrapper scribed while in presence of service performed by Dr. JOYCE MCINTYRE on 06/22/20 ([id number])
--- NOTE | 2020-06-22 11:24 | DI ---
EXAM: Single frontal view of the chest HISTORY: Follow up pneumonia. COMPARISON: Chest x-ray 06/20/2020 and multiple priors FINDINGS: Cardiomediastinal silhouette is unchanged. There is no pneumothorax or effusion. There is minimal hazy scattered ground-glass throughout both lungs. There is no acute consolidation. The os seous structures are unremarkable. IMPRESSION: Minimal hazy scattered ground-glass throughout both lungs relatively unchanged from prio r that may represent noncardiogenic edema versus atypical pneumonia.
--- NOTE | 2020-06-22 11:53 | US ---
EXAM: Bilateral lower extremity venous Doppler duplex HISTORY: Concern for DVT with lower leg swelling. COMPARISON: None TECHNIQUE: Sonographic and Doppler evaluation of the bilateral lower extremity vessels from the comm on femoral through the anterior tibial veins were obtained. Color Doppler and wave spectral evaluati on were provided. Augmentation and compression techniques were also performed. FINDINGS: There is spontaneous Doppler flow seen in the bilateral lower extremity veins from the com mon femoral through the anterior tibial veins. There is normal compression and augmentation througho ut the lower extremity veins. There is normal color Doppler and wave spectral evaluation. Sonograph ic appearance of the soft tissues are unremarkable. IMPRESSION: No lower extremity thrombus
[2020-06-22] MEDS: REMDESIVIR 100 MG in SODIUM CHLORIDE 250 ML IV SCH (12:18)
--- NOTE | 2020-06-22 14:25 | HP ---
DATE OF SERVICE: 06/20/2020 REASON FOR HOSPITALIZATION: COVID pneumonia HISTORY OF PRESENT ILLNESS: 65 year old white female has been COVID positive for past 10 days. The patient has been in quarantine and now for past couple of days has developed shortness of breath, cough and congestion. She was instructed by my office to check her oximetry which to her reported as low. She decided to come to the emergency room. Emergency room the patient had arterial blood gasses done which showed pO2 63, with pCO2 46, pH 7.38 with 89% saturation on 2 liters. According to the patient her appetite has also been getting somewhat less. PAST MEDICAL HISTORY/PAST SURGICAL HISTORY: COVID 19 started 10 days ago Reflux disease Severe chronic lung disease History of smoking Diabetes mellitus Morbid obesity with BMI of 44 Neuropathy diabetic Generalized osteoarthritis Hypertension Dyslipidemia Chronic kidney disease Chronic anemia Thrombocytopenia REVIEW OF SYSTEMS: CONSTITUTIONAL: No night sweats. No fever or chills. Weakness and fatigue. HEENT: Eyes: No visual changes. No eye pain. No eye discharge. ENT: No runny nose. No epistaxis. No sinus pain. No sore throat. No odynophagia. No ear pain. No congestion. RESPIRATORY: Cough, Congestion. No hemoptysis. Shortness of breath on minimal exertion more than usual. Mildly yellowish sputum. CARDIOVASCULAR: No angina symptoms. No CHF symptoms. No atypical chest pain for CAD. No palpitations. No PND. No orthopnea. GASTROINTESTINAL: No abdominal pain. No nausea or vomiting. No diarrhea or constipation. No hematemesis. No hematochezia. Appetite hasn't been that good lately, last couple of days. GENITOURINARY: No urgency. No frequency. No dysuria. No hematuria. No obstructive symptoms. No discharge. No pain. No significant abnormal bleeding. MUSCULOSKELETAL: Generalized aches and pains consistent with flu type of symptoms according to the patient . No joint swelling. No arthritis. NEUROLOGICAL: No headache. No neck pain. No syncope. No seizures. No dizziness. PSYCHIATRIC: Not anxious. No depression. No suicidal thoughts. No homicidal thoughts. SKIN: No rash. No lesions. No wounds. ENDOCRINE: No unexplained weight loss. No weight gain. HEMATOLOGIC/LYMPHATIC: No anemia. No purpura. No petechiae. No prolonged or excessive bleeding. No palpable lymph nodes. MEDICATIONS: Levothyroxine Pantoprazole Xanax Albuterol Ventolin inhaler Hydrocodone Bevespi Victoza Hydroxyzine Nystatin Gabapentin 1200mg The patient takes Novolog mix 70-30 2-3 times a day. She knows how to do it. She has her own way of doing her insulin. She keeps it under control to some extent in an acceptable fashion. Daily Aspirin Diltazem Metoprolol Pravastatin Furosemide Lisinopril Potassium ALLERGIES: Epinephrine Flagyl Naproxen Penicillin Sulfa Trimethoprim Vancomycin PHYSICAL EXAMINATION: GENERAL: The patient is oriented to time, place and person in no distress. The patient is up and about and talking normally with no distress. VITAL SIGNS: Temperature 97.7, pulse 80, respiratory rate 18, blood pressure 107/60, pulse ox 92% on 2 liters. HEENT: Head normocephalic, atraumatic. Eyes: Extraocular muscles are intact. Pupils are equal, round and reactive to light and accommodation. Ears: No lesions. Nose appeared normal. Throat: No exudate or erythema. NECK: Supple. No JVD, no carotid bruit. No lymphadenopathy or thyromegaly. LUNGS: Decreased breath sounds bilaterally. Good air entry. Clear to auscultation. Percussion note normal. Chest symmetrical. HEART: S1, S2 distant, no S3. No murmur. No cyanosis or clubbing. No ascites. Pulses: Dorsalis pedis and posterior tibial pulses +1 bilaterally. ABDOMEN: Soft. Nontender. Bowel sounds active. No CVA tenderness. No mass felt. EXTREMITIES: Trace to 1+ edema. Full range of motion of all extremities, equal. NEUROLOGIC: No focal deficit. Cranial nerves II through XII are grossly intact. No headache, no double vision or headache. SKIN: Not dry. Intact. Turgor - normal. LYMPHATIC: No palpable lymph nodes/no lymphedema. MUSCULOSKELETAL: Normal joints with no swelling. Muscle tone is normal. LABS: Arterial blood gasses and mentioned above with oxygen saturation 90% on 2 liters with pH 7.38, pO2 63 with pCO2 46. Troponin normal. Glucose was 139 on admission. Estimated GFR 27. Hgb 11.8, hct 35, WBC 4,700 normal differential, creatinine 1.9, BUN 38, potassium 3.9. Plt 100,000. Lactic acid normal 1.16. Chest x-ray infiltrate ASSESSMENT: 1. Acute respiratory failure with pneumonia due to COVID 19 2. History of chronic severe chronic lung disease 3. Diabetes Mellitus, insulin dependent 4. Chronic kidney disease stage 3-4 5. Chronic anemia 6. Hypertension 7. Dyslipidemia 8. Generalized degenerative joint disease 9. Obesity 10.Diabetic neuropathy 11.Noncompliance of diet, lifestyle. The patient has her own way of controlling her blood sugars and she is doing an acceptable job at it. PLAN: 1. Start the patient on Remdesivir 2. IV fluids 50cc per hour 3. Dexamethasone 6mg IM daily 4. Diltazem 60mg BID 5. Rimantadine 20mg twice a day 6. Rocephin 1 gram Q 24 hour 7. Doxycycline 100mg PO BID The patient is DNI. Our attending also talking to the patient and at that time she wanted a DNI. PROGNOSIS: Guarded. TIME SPENT: More than 70 minutes. ADDENDUM: The patient's chest x-ray showed minimal bilateral infiltrate indicating pneumonia, COVID 19. The patient's ABG on room air on admission to the emergency room showed pO2 of 56, pCO2 46, pH 7.36 with 87% saturation indicating acute respiratory failure with bilateral pneumonia from COVID 19. MTDD
[2020-06-22] MEDS: NON-FORMULARY MEDICATION (Liraglutide [Victoza 2-Pak] 0.6 MG/0.1 ML pen injector) SUBCUT SCH (15:09)
[2020-06-22] MEDS: ROCEPHIN 1 GM/50 ML D5W 1 GM/50 ML BAG IV SCH (20:17)
[2020-06-23] MEDS: VENTOLIN HFA (PER PUFF-WITH SPACER) IH SCH ×3 (05:15→19:00)
[2020-06-23] MEDS: ATROVENT HFA INHALER (PER PUFF-WITH SPACER) IH SCH ×3 (05:15→19:00)
[2020-06-23 05:23] LABS: BASOPHILS % (AUTO) 0.1 % (0.0-3.0); HEMATOCRIT 35.7 % (37.0-47.0); HEMOGLOBIN 11.9 g/dl (12.0-16.0); IMMATURE GRANULOCYTE % (AUTO) 0.4 % (0.0-5.0); LYMPHOCYTES # (AUTO) 0.8 K/uL (0.60-3.4); LYMPHOCYTES % (AUTO) 11.7 (10.0-50.0); MEAN CORPUSCULAR HEMOGLOBIN 29.3 pg (27.0-31.0); MEAN CORPUSCULAR HGB CONC 33.3 (31.8-35.4); MEAN CORPUSCULAR VOLUME 87.9 fl (81.0-99.0); MONOCYTES # (AUTO) 0.3 K/uL (0.4-2.0); MONOCYTES % (AUTO) 4.6 (0-10); NEUTROPHILS # (AUTO) 5.6 K/ul (2.0-6.9); NEUTROPHILS % (AUTO) 83.2 % (42.2-75.2); PLATELET COUNT 129 10^3/uL (140-440); RDW COEFFICIENT OF VARIATION 13.5 % (11.6-14.8); RED BLOOD COUNT 4.06 10^6/ul (4.20-5.40); WHITE BLOOD COUNT 6.77 K/ul (4.6-10.2)
[2020-06-23 05:37] LABS: ALANINE AMINOTRANSFERASE 16.8 U/L (0-35); ALBUMIN 3.6 g/dL (3.5-5.0); ALKALINE PHOSPHATASE 79.9 U/L (53-141); ASPARTATE AMINO TRANSFERASE 26.1 U/L (14-36); BILIRUBIN,TOTAL 0.39 mg/dL (0.2-1.3); BLOOD UREA NITROGEN 46.6 mg/dL (7-17); CALCIUM 9.18 mg/dL (8.4-10.2); CARBON DIOXIDE 26.9 mmol/L (22-30.0); CHLORIDE 103.7 mmol/L (98-107); CREATININE 1.42 mg/dL (0.60-1.30); GLUCOSE 164.2 mg/dL (74-106); POTASSIUM 4.83 mmol/L (3.5-5.1); SODIUM 137.3 mmol/L (134.5-145); TOTAL PROTEIN 6.77 g/dL (6.3-8.2)
[2020-06-23 05:46] LABS: PROTHROMBIN TIME 11.1 SEC (9.3-11.0)
[2020-06-23 05:58] LABS: TROPONIN I < 0.012 ng/ml (0.0000-0.120)
[2020-06-23 06:02] LABS: ERYTHROCYTE SEDIMENTATION RATE 34 mm/hr (0-20)
[2020-06-23] MEDS: LASIX TAB PO SCH (06:09)
[2020-06-23] MEDS: PROTONIX PO SCH ×2 (06:09→17:02)
[2020-06-23] MEDS: PEPCID PO SCH ×2 (06:09→17:02)
[2020-06-23] MEDS: SYNTHROID PO SCH (06:10)
[2020-06-23] MEDS: NEURONTIN PO SCH ×2 (08:31→20:21)
[2020-06-23] MEDS: VITAMIN D PO SCH (08:34)
[2020-06-23] MEDS: ASPIRIN EC PO SCH (08:34)
[2020-06-23] MEDS: PRAVACHOL PO SCH (08:35)
[2020-06-23] MEDS: CARDIZEM PO SCH ×2 (08:35→20:22)
[2020-06-23] MEDS: ZINC-220 PO SCH (08:35)
[2020-06-23] MEDS: NORCO 7.5-325 PO SCH ×3 (08:35→20:22)
[2020-06-23] MEDS: ZESTRIL PO SCH (08:35)
[2020-06-23] MEDS: MICRO-K CAP PO SCH (08:36)
[2020-06-23] MEDS: DECADRON IM SCH (08:36)
[2020-06-23] MEDS: LOPRESSOR PO SCH ×2 (08:36→20:22)
[2020-06-23] MEDS: DOXY-100 100 MG in SODIUM CHLORIDE 100 ML IV SCH (08:40)
[2020-06-23] MEDS: FORMOTEROL IH SCH ×2 (08:40→20:22)
[2020-06-23] MEDS: GLYCOPYRROLATE IH SCH ×2 (08:40→20:22)
[2020-06-23] MEDS: [UNRECOGNIZED DRUG - OTHER] IH SCH ×2 (08:40→20:22)
[2020-06-23] MEDS: HUMALOG MIX 75-25 SUBCUT PRN ×2 (11:00→20:20)
[2020-06-23] MEDS: NON-FORMULARY MEDICATION (Liraglutide [Victoza 2-Pak] 0.6 MG/0.1 ML pen injector) SUBCUT SCH (12:23)
[2020-06-23] MEDS: REMDESIVIR 100 MG in SODIUM CHLORIDE 250 ML IV SCH (13:54)
[2020-06-23] MEDS ORDERED: MILK OF MAGNESIA PO PRN (15:10)
[2020-06-23] MEDS: ROCEPHIN 1 GM/50 ML D5W 1 GM/50 ML BAG IV SCH (20:19)
[2020-06-23] MEDS: DOXYCYCLINE HYCLATE PO SCH (20:22)
[2020-06-23] MEDS: XANAX PO PRN (20:40)
[2020-06-24] MEDS: VENTOLIN HFA (PER PUFF-WITH SPACER) IH SCH ×3 (05:15→19:40)
[2020-06-24] MEDS: ATROVENT HFA INHALER (PER PUFF-WITH SPACER) IH SCH ×3 (05:15→19:40)
[2020-06-24 05:23] LABS: BASOPHILS % (AUTO) 0.3 % (0.0-3.0); HEMATOCRIT 37.2 % (37.0-47.0); HEMOGLOBIN 12.3 g/dl (12.0-16.0); IMMATURE GRANULOCYTE % (AUTO) 0.5 % (0.0-5.0); MEAN CORPUSCULAR HEMOGLOBIN 29.6 pg (27.0-31.0); MEAN CORPUSCULAR HGB CONC 33.1 (31.8-35.4); MEAN CORPUSCULAR VOLUME 89.4 fl (81.0-99.0); MONOCYTES # (AUTO) 0.4 K/uL (0.4-2.0); NEUTROPHILS # (AUTO) 7.2 K/ul (2.0-6.9); NEUTROPHILS % (AUTO) 83.2 % (42.2-75.2); PLATELET COUNT 173 10^3/uL (140-440); RDW COEFFICIENT OF VARIATION 13.8 % (11.6-14.8); RED BLOOD COUNT 4.16 10^6/ul (4.20-5.40); WHITE BLOOD COUNT 8.66 K/ul (4.6-10.2)
[2020-06-24 05:36] LABS: PROTHROMBIN TIME 11.2 SEC (9.3-11.0)
[2020-06-24 05:37] LABS: ALANINE AMINOTRANSFERASE 18.3 U/L (0-35); ALBUMIN 4.01 g/dL (3.5-5.0); ASPARTATE AMINO TRANSFERASE 31.4 U/L (14-36); BILIRUBIN,TOTAL 0.43 mg/dL (0.2-1.3); BLOOD UREA NITROGEN 43.1 mg/dL (7-17); CALCIUM 9.26 mg/dL (8.4-10.2); CARBON DIOXIDE 27.6 mmol/L (22-30.0); CHLORIDE 102.7 mmol/L (98-107); CREATININE 1.32 mg/dL (0.60-1.30); GLUCOSE 71.2 mg/dL (74-106); POTASSIUM 4.51 mmol/L (3.5-5.1); SODIUM 139.1 mmol/L (134.5-145); TOTAL PROTEIN 7.27 g/dL (6.3-8.2)
[2020-06-24] MEDS: PEPCID PO SCH ×2 (05:50→16:00)
[2020-06-24] MEDS: LASIX TAB PO SCH (05:50)
[2020-06-24] MEDS: SYNTHROID PO SCH (05:50)
[2020-06-24] MEDS: PROTONIX PO SCH ×2 (05:50→16:00)
[2020-06-24 05:58] LABS: ERYTHROCYTE SEDIMENTATION RATE 34 mm/hr (0-20)
[2020-06-24 06:25] LABS: TROPONIN I < 0.012 ng/ml (0.0000-0.120)
[2020-06-24] MEDS: PRAVACHOL PO SCH (09:01)
[2020-06-24] MEDS: NORCO 7.5-325 PO SCH ×3 (09:02→20:25)
[2020-06-24] MEDS: NEURONTIN PO SCH ×2 (09:02→20:24)
[2020-06-24] MEDS: DOXYCYCLINE HYCLATE PO SCH ×2 (09:02→20:26)
[2020-06-24] MEDS: VITAMIN D PO SCH (09:02)
[2020-06-24] MEDS: MICRO-K CAP PO SCH (09:02)
[2020-06-24] MEDS: ASPIRIN EC PO SCH (09:03)
[2020-06-24] MEDS: LOPRESSOR PO SCH ×2 (09:03→20:24)
[2020-06-24] MEDS: CARDIZEM PO SCH (09:03)
[2020-06-24] MEDS: ZINC-220 PO SCH (09:03)
[2020-06-24] MEDS: ZESTRIL PO SCH (09:03)
[2020-06-24] MEDS: FORMOTEROL IH SCH ×2 (09:04→20:27)
[2020-06-24] MEDS: GLYCOPYRROLATE IH SCH ×2 (09:04→20:27)
[2020-06-24] MEDS: [UNRECOGNIZED DRUG - OTHER] IH SCH ×2 (09:04→20:27)
[2020-06-24] MEDS: DECADRON IM SCH (09:04)
[2020-06-24] MEDS: NON-FORMULARY MEDICATION (Liraglutide [Victoza 2-Pak] 0.6 MG/0.1 ML pen injector) SUBCUT SCH (12:15)
[2020-06-24] MEDS: REMDESIVIR 100 MG in SODIUM CHLORIDE 250 ML IV SCH (12:15)
[2020-06-24] MEDS: HUMALOG MIX 75-25 SUBCUT PRN ×2 (16:45→20:26)
[2020-06-24] MEDS: ROCEPHIN 1 GM/50 ML D5W 1 GM/50 ML BAG IV SCH (20:24)
[2020-06-24] MEDS: XANAX PO PRN (20:25)
[2020-06-25] MEDS: ATROVENT HFA INHALER (PER PUFF-WITH SPACER) IH SCH ×3 (05:10→19:35)
[2020-06-25] MEDS: VENTOLIN HFA (PER PUFF-WITH SPACER) IH SCH ×3 (05:10→19:35)
[2020-06-25 05:16] LABS: BASOPHILS % (AUTO) 0.1 % (0.0-3.0); HEMATOCRIT 38.3 % (37.0-47.0); IMMATURE GRANULOCYTE # (AUTO) 0.1 (0.0-1.0); IMMATURE GRANULOCYTE % (AUTO) 0.7 % (0.0-5.0); LYMPHOCYTES # (AUTO) 0.8 K/uL (0.60-3.4); LYMPHOCYTES % (AUTO) 9.2 (10.0-50.0); MEAN CORPUSCULAR HEMOGLOBIN 29.6 pg (27.0-31.0); MEAN CORPUSCULAR HGB CONC 33.9 (31.8-35.4); MEAN CORPUSCULAR VOLUME 87.2 fl (81.0-99.0); MONOCYTES # (AUTO) 0.6 K/uL (0.4-2.0); MONOCYTES % (AUTO) 6.6 (0-10); NEUTROPHILS % (AUTO) 83.4 % (42.2-75.2); PLATELET COUNT 156 10^3/uL (140-440); RDW COEFFICIENT OF VARIATION 13.6 % (11.6-14.8); RED BLOOD COUNT 4.39 10^6/ul (4.20-5.40); WHITE BLOOD COUNT 8.39 K/ul (4.6-10.2)
[2020-06-25 05:27] LABS: ALANINE AMINOTRANSFERASE 20.9 U/L (0-35); ALBUMIN 3.79 g/dL (3.5-5.0); ALKALINE PHOSPHATASE 80.9 U/L (53-141); ASPARTATE AMINO TRANSFERASE 30.8 U/L (14-36); BILIRUBIN,TOTAL 0.51 mg/dL (0.2-1.3); CALCIUM 9.18 mg/dL (8.4-10.2); CARBON DIOXIDE 28.9 mmol/L (22-30.0); CHLORIDE 101.2 mmol/L (98-107); CREATININE 1.17 mg/dL (0.60-1.30); POTASSIUM 4.21 mmol/L (3.5-5.1); PROTHROMBIN TIME 11.4 SEC (9.3-11.0); SODIUM 138.7 mmol/L (134.5-145)
[2020-06-25] MEDS: SYNTHROID PO SCH (05:32)
[2020-06-25] MEDS: LASIX TAB PO SCH (05:32)
[2020-06-25] MEDS: PROTONIX PO SCH ×2 (05:32→17:11)
[2020-06-25] MEDS: PEPCID PO SCH ×2 (05:32→17:11)
[2020-06-25 05:35] LABS: GLUCOSE 47.2 mg/dL (74-106)
[2020-06-25 05:39] LABS: TROPONIN I < 0.012 ng/ml (0.0000-0.120)
[2020-06-25 05:49] LABS: ERYTHROCYTE SEDIMENTATION RATE 21 mm/hr (0-20)
[2020-06-25] MEDS: NEURONTIN PO SCH ×2 (08:48→20:39)
[2020-06-25] MEDS: VITAMIN D PO SCH (08:48)
[2020-06-25] MEDS: PRAVACHOL PO SCH (08:48)
[2020-06-25] MEDS: DOXYCYCLINE HYCLATE PO SCH ×2 (08:48→20:39)
[2020-06-25] MEDS: ZESTRIL PO SCH (08:48)
[2020-06-25] MEDS: NORCO 7.5-325 PO SCH ×3 (08:49→20:38)
[2020-06-25] MEDS: ZINC-220 PO SCH (08:49)
[2020-06-25] MEDS: MICRO-K CAP PO SCH (08:49)
[2020-06-25] MEDS: DECADRON IM SCH (08:49)
[2020-06-25] MEDS: LOPRESSOR PO SCH ×2 (08:49→20:39)
[2020-06-25] MEDS: ASPIRIN EC PO SCH (08:49)
[2020-06-25] MEDS: FORMOTEROL IH SCH ×2 (08:50→20:43)
[2020-06-25] MEDS: [UNRECOGNIZED DRUG - OTHER] IH SCH ×2 (08:50→20:43)
[2020-06-25] MEDS: GLYCOPYRROLATE IH SCH ×2 (08:50→20:43)
[2020-06-25] MEDS: REMDESIVIR 100 MG in SODIUM CHLORIDE 250 ML IV SCH (12:08)
[2020-06-25 14:04] LABS: ABG PH 7.45 (7.35-7.45)
[2020-06-25] MEDS: NON-FORMULARY MEDICATION (Liraglutide [Victoza 2-Pak] 0.6 MG/0.1 ML pen injector) SUBCUT SCH ×2 (16:31→17:12)
[2020-06-25] MEDS: HUMALOG MIX 75-25 SUBCUT PRN ×2 (17:12→20:40)
[2020-06-25] MEDS: OMNICEF PO SCH (20:39)
[2020-06-25] MEDS: XANAX PO PRN (20:39)
[2020-06-26] MEDS: ATROVENT HFA INHALER (PER PUFF-WITH SPACER) IH SCH ×3 (05:00→18:52)
[2020-06-26] MEDS: VENTOLIN HFA (PER PUFF-WITH SPACER) IH SCH ×3 (05:00→18:52)
[2020-06-26 05:22] LABS: BASOPHILS % (AUTO) 0.1 % (0.0-3.0); HEMATOCRIT 40.5 % (37.0-47.0); HEMOGLOBIN 13.7 g/dl (12.0-16.0); IMMATURE GRANULOCYTE # (AUTO) 0.1 (0.0-1.0); LYMPHOCYTES # (AUTO) 1.9 K/uL (0.60-3.4); LYMPHOCYTES % (AUTO) 13.6 (10.0-50.0); MEAN CORPUSCULAR HEMOGLOBIN 29.4 pg (27.0-31.0); MEAN CORPUSCULAR HGB CONC 33.8 (31.8-35.4); MEAN CORPUSCULAR VOLUME 86.9 fl (81.0-99.0); MONOCYTES # (AUTO) 0.9 K/uL (0.4-2.0); MONOCYTES % (AUTO) 6.5 (0-10); NEUTROPHILS # (AUTO) 11.1 K/ul (2.0-6.9); NEUTROPHILS % (AUTO) 78.8 % (42.2-75.2); PLATELET COUNT 259 10^3/uL (140-440); RDW COEFFICIENT OF VARIATION 13.5 % (11.6-14.8); RED BLOOD COUNT 4.66 10^6/ul (4.20-5.40); WHITE BLOOD COUNT 14.08 K/ul (4.6-10.2)
[2020-06-26] MEDS: LASIX TAB PO SCH (05:31)
[2020-06-26] MEDS: SYNTHROID PO SCH (05:31)
[2020-06-26] MEDS: PEPCID PO SCH ×2 (05:31→17:15)
[2020-06-26] MEDS: PROTONIX PO SCH ×2 (05:32→17:15)
[2020-06-26 05:34] LABS: ALANINE AMINOTRANSFERASE 24.4 U/L (0-35); ALBUMIN 3.93 g/dL (3.5-5.0); ALKALINE PHOSPHATASE 87.3 U/L (53-141); ASPARTATE AMINO TRANSFERASE 30.9 U/L (14-36); BILIRUBIN,TOTAL 0.61 mg/dL (0.2-1.3); BLOOD UREA NITROGEN 37.9 mg/dL (7-17); CALCIUM 9.34 mg/dL (8.4-10.2); CARBON DIOXIDE 32.4 mmol/L (22-30.0); CHLORIDE 99.8 mmol/L (98-107); CREATININE 1.24 mg/dL (0.60-1.30); GLUCOSE 57.8 mg/dL (74-106); POTASSIUM 4.51 mmol/L (3.5-5.1); SODIUM 138.2 mmol/L (134.5-145); TOTAL PROTEIN 7.17 g/dL (6.3-8.2)
[2020-06-26 05:42] LABS: PROTHROMBIN TIME 11.4 SEC (9.3-11.0)
[2020-06-26 05:54] LABS: TROPONIN I < 0.012 ng/ml (0.0000-0.120)
[2020-06-26 05:58] LABS: ERYTHROCYTE SEDIMENTATION RATE 14 mm/hr (0-20)
[2020-06-26] MEDS: OMNICEF PO SCH ×2 (08:00→20:07)
[2020-06-26] MEDS: DECADRON IM SCH (08:00)
[2020-06-26] MEDS: DOXYCYCLINE HYCLATE PO SCH ×2 (08:00→20:07)
[2020-06-26] MEDS: ASPIRIN EC PO SCH (08:01)
[2020-06-26] MEDS: ZINC-220 PO SCH (08:01)
[2020-06-26] MEDS: VITAMIN D PO SCH (08:01)
[2020-06-26] MEDS: MICRO-K CAP PO SCH (08:01)
[2020-06-26] MEDS: PRAVACHOL PO SCH (08:02)
[2020-06-26] MEDS: LOPRESSOR PO SCH ×2 (08:02→20:07)
[2020-06-26] MEDS: NORCO 7.5-325 PO SCH ×3 (08:02→20:07)
[2020-06-26] MEDS: NEURONTIN PO SCH ×2 (08:02→20:07)
[2020-06-26] MEDS: ZESTRIL PO SCH (08:02)
[2020-06-26] MEDS: FORMOTEROL IH SCH ×2 (08:25→20:08)
[2020-06-26] MEDS: GLYCOPYRROLATE IH SCH ×2 (08:25→20:08)
[2020-06-26] MEDS: [UNRECOGNIZED DRUG - OTHER] IH SCH ×2 (08:25→20:08)
--- NOTE | 2020-06-26 11:30 | PN ---
DATE OF SERVICE: 06/23/2020 SUBJECTIVE: 65 year old white female hospitalized with COVID 19 bilateral pneumonia. She had COVID for past more than 10 days. She has been treated with Remdesivir,Dexamethasone and also antibiotics like Rocephin and Doxycycline. The patient's condition has improved some. She says that she is feeling somewhat better. Somewhat constipated today. REVIEW OF SYSTEMS: CONSTITUTIONAL: No night sweats. No fatigue, malaise, lethargy. No fever or chills. HEENT: Eyes: No visual changes. No eye pain. No eye discharge. ENT: No runny nose. No epistaxis. No sinus pain. No sore throat. No odynophagia. No congestion. RESPIRATORY: No cough, no congestion. No hemoptysis. No shortness of breath. CARDIOVASCULAR: No angina symptoms. No CHF symptoms. No atypical chest pain for CAD. No palpitations. No PND. No orthopnea. GASTROINTESTINAL: No abdominal pain. No nausea or vomiting. No diarrhea or constipation. No hematemesis. No hematochezia. GENITOURINARY: No urgency. No frequency. No dysuria. No hematuria. No obstructive symptoms. No discharge. No pain. No significant abnormal bleeding. MUSCULOSKELETAL: No musculoskeletal pain; no joint swelling. NEUROLOGICAL: No headache. No neck pain. No syncope. No seizures. No dizziness. PSYCHIATRIC: Not anxious. No depression. No suicidal thoughts. No homicidal thoughts. SKIN: No rash. No lesions. No wounds. ENDOCRINE: No unexplained weight loss. No weight gain. HEMATOLOGIC/LYMPHATIC: No anemia. No purpura. No petechiae. No prolonged or excessive bleeding. No palpable lymph nodes. PHYSICAL EXAMINATION: VITAL SIGNS: Temperature 97.9, pulse 63, respiratory rate 20, blood pressures 134/80 and pulse ox 92% on 2 liters. HEENT: Head normocephalic, atraumatic. Eyes: Extraocular muscles are intact. Pupils are equal, round and reactive to light and accommodation. Ears: No lesions. Nose appeared normal. Throat: No exudate or erythema. NECK: Supple. No JVD, no carotid bruit. No lymphadenopathy or thyromegaly. LUNGS: Decreased breath sounds but clear to auscultation. Percussion note normal. Chest symmetrical. HEART: S1, S2, no S3. No murmurs. No cyanosis or clubbing. No ascites. Pulses: Dorsalis pedis and posterior tibial pulses +1 to +2 bilaterally. ABDOMEN: Soft. Nontender. Bowel sounds active. No CVA tenderness. No mass felt. EXTREMITIES: No edema. Full range of motion of all extremities, equal. NEUROLOGIC: No focal deficit. Cranial nerves II through XII are grossly intact. No headache, no double vision or headache. SKIN: Not dry. Intact. Turgor - normal. LYMPHATIC: No palpable lymph nodes/no lymphedema. MUSCULOSKELETAL: Normal joints with no swelling. Muscle tone is normal. LABS: Hgb 11.9, hct 35, WBC 6,700 normal differential, creatinine 1.4, BUN 46, potassium 4.8. ASSESSMENT: 1. COVID 19 pneumonia seems to be resolving slowly with improvement in hydration status and kidney function 2. The patient is morbidly obese 3. Severe chronic lung disease 4. Diabetes Mellitus 5. Several comorbidities. PLAN: 1. Continue the treatment the same as before 2. Remdesivir, steroids and antibiotics Rocephin and Doxycycline. 3. Doxycycline will be converted to PO as the patient has difficulty in having IV site. 4. Strongly advised to be up and about in the room with exercised and pulmonary exercises discussed 5. Pulmonary rehab strongly recommended after she recovers from COVID 19. TIME SPENT: More than 30 minutes. Plan and coordination of the patient's care discussed in the presence of nurse. ASTRID
--- NOTE | 2020-06-26 11:41 | PN ---
DATE OF SERVICE: 06/24/2020 SUBJECTIVE: 65 year old white female hospitalized with bilateral COVID pneumonia. The patient has respiratory failure because of it. The patient has underlined severe chronic lung disease from previous smoking and morbid obesity with restrictive lung problems also. She has a lot of other comorbidities. REVIEW OF SYSTEMS: CONSTITUTIONAL: No night sweats. The patient complains of fatigue. No fever or chills. HEENT: Eyes: No visual changes. No eye pain. No eye discharge. ENT: No runny nose. No epistaxis. No sinus pain. No sore throat. No odynophagia. No congestion. RESPIRATORY: No cough, no congestion. No hemoptysis. Shortness of breath on exertion which is not unusual for her but a little bit more than usual. CARDIOVASCULAR: No angina symptoms. No CHF symptoms. No atypical chest pain for CAD. No palpitations. No PND. No orthopnea. GASTROINTESTINAL: No abdominal pain. No nausea or vomiting. No diarrhea or constipation. No hematemesis. No hematochezia. GENITOURINARY: No urgency. No frequency. No dysuria. No hematuria. No obstructive symptoms. No discharge. No pain. No significant abnormal bleeding. MUSCULOSKELETAL: No musculoskeletal pain; no joint swelling. NEUROLOGICAL: No headache. No neck pain. No syncope. No seizures. No dizziness. PSYCHIATRIC: Not anxious. No depression. No suicidal thoughts. No homicidal thoughts. SKIN: No rash. No lesions. No wounds. ENDOCRINE: No unexplained weight loss. No weight gain. HEMATOLOGIC/LYMPHATIC: No anemia. No purpura. No petechiae. No prolonged or excessive bleeding. No palpable lymph nodes. PHYSICAL EXAMINATION: VITAL SIGNS: Temperature 97.8, pulse 60, respiratory rate 16, blood pressure 120/60 and pulse ox 95%. HEENT: Head normocephalic, atraumatic. Eyes: Extraocular muscles are intact. Pupils are equal, round and reactive to light and accommodation. Ears: No lesions. Nose appeared normal. Throat: No exudate or erythema. NECK: Supple. No JVD, no carotid bruit. No lymphadenopathy or thyromegaly. LUNGS: Decreased breath sounds but clear to auscultation. Mild expiratory wheeze at times. Percussion note normal. Chest symmetrical. HEART: S1, S2, no S3. No murmurs. No cyanosis or clubbing. No ascites. Pulses: Dorsalis pedis and posterior tibial pulses +1 to +2 bilaterally. ABDOMEN: Soft. Nontender. Bowel sounds active. No CVA tenderness. No mass felt. EXTREMITIES: No edema. Full range of motion of all extremities, equal. NEUROLOGIC: No focal deficit. Cranial nerves II through XII are grossly intact. No headache, no double vision or headache. SKIN: Not dry. Intact. Turgor - normal. LYMPHATIC: No palpable lymph nodes/no lymphedema. MUSCULOSKELETAL: Normal joints with no swelling. Muscle tone is normal. LABS: Hgb 12.3, hct 37, WBC 8,600 normal differential, creatinine 1.3, BUN 43, potassium 4.5. ASSESSMENT: 1. Bilateral COVID pneumonia 2. Respiratory failure 3. Hypoglycemia this morning besides the way of doing the insulin coverage. instructed about this hypoglycemic blood sugar that she had this morning. 4. Chronic kidney disease, improving PLAN: 1. Continue all the medications as she has been on Remdesivir and Dexamethasone 2. Continue sliding coverage 3. The patient's kidney functions are improving, she may not need IV fluids 4. Continue Rocephin and Doxycycline CONDITION: Improving. TIME SPENT: More than 30 minutes. Plan and coordination of the patient's care discussed in the presence of nurse. ASTRID
[2020-06-26] MEDS: NON-FORMULARY MEDICATION (Liraglutide [Victoza 2-Pak] 0.6 MG/0.1 ML pen injector) SUBCUT SCH (11:49)
[2020-06-26] MEDS: HUMALOG MIX 75-25 SUBCUT PRN (17:16)
[2020-06-27 04:44] LABS: BASOPHILS % (AUTO) 0.1 % (0.0-3.0); HEMATOCRIT 39.3 % (37.0-47.0); IMMATURE GRANULOCYTE # (AUTO) 0.1 (0.0-1.0); IMMATURE GRANULOCYTE % (AUTO) 0.6 % (0.0-5.0); LYMPHOCYTES # (AUTO) 1.1 K/uL (0.60-3.4); LYMPHOCYTES % (AUTO) 11.3 (10.0-50.0); MEAN CORPUSCULAR HEMOGLOBIN 29.4 pg (27.0-31.0); MEAN CORPUSCULAR HGB CONC 33.1 (31.8-35.4); MEAN CORPUSCULAR VOLUME 88.9 fl (81.0-99.0); MONOCYTES # (AUTO) 0.7 K/uL (0.4-2.0); MONOCYTES % (AUTO) 6.7 (0-10); NEUTROPHILS # (AUTO) 8.1 K/ul (2.0-6.9); NEUTROPHILS % (AUTO) 81.3 % (42.2-75.2); PLATELET COUNT 166 10^3/uL (140-440); RDW COEFFICIENT OF VARIATION 13.4 % (11.6-14.8); RED BLOOD COUNT 4.42 10^6/ul (4.20-5.40)
[2020-06-27] MEDS: ATROVENT HFA INHALER (PER PUFF-WITH SPACER) IH SCH ×3 (04:50→20:40)
[2020-06-27] MEDS: VENTOLIN HFA (PER PUFF-WITH SPACER) IH SCH ×3 (04:50→20:40)
[2020-06-27 04:55] LABS: ALANINE AMINOTRANSFERASE 26.1 U/L (0-35); ALBUMIN 3.86 g/dL (3.5-5.0); ALKALINE PHOSPHATASE 85.5 U/L (53-141); ASPARTATE AMINO TRANSFERASE 28.4 U/L (14-36); BILIRUBIN,TOTAL 0.67 mg/dL (0.2-1.3); BLOOD UREA NITROGEN 45.4 mg/dL (7-17); CALCIUM 9.06 mg/dL (8.4-10.2); CARBON DIOXIDE 35.3 mmol/L (22-30.0); CHLORIDE 96.1 mmol/L (98-107); CREATININE 1.47 mg/dL (0.60-1.30); GLUCOSE 126.1 mg/dL (74-106); POTASSIUM 4.58 mmol/L (3.5-5.1); SODIUM 136.8 mmol/L (134.5-145); TOTAL PROTEIN 6.93 g/dL (6.3-8.2)
[2020-06-27 04:59] LABS: PROTHROMBIN TIME 11.5 SEC (9.3-11.0)
[2020-06-27 05:19] LABS: ERYTHROCYTE SEDIMENTATION RATE 14 mm/hr (0-20)
[2020-06-27 05:30] LABS: FERRITIN 98.7 ng/mL (11.1-264.0)
[2020-06-27] MEDS: PEPCID PO SCH ×2 (05:37→17:15)
[2020-06-27] MEDS: LASIX TAB PO SCH (05:37)
[2020-06-27] MEDS: PROTONIX PO SCH ×2 (05:37→17:15)
[2020-06-27] MEDS: SYNTHROID PO SCH (05:37)
[2020-06-27] MEDS: MICRO-K CAP PO SCH (08:10)
[2020-06-27] MEDS: OMNICEF PO SCH (08:10)
[2020-06-27] MEDS: ASPIRIN EC PO SCH (08:10)
[2020-06-27] MEDS: LOPRESSOR PO SCH ×2 (08:10→20:23)
[2020-06-27] MEDS: DOXYCYCLINE HYCLATE PO SCH (08:10)
[2020-06-27] MEDS: ZINC-220 PO SCH (08:10)
[2020-06-27] MEDS: NEURONTIN PO SCH ×2 (08:10→20:23)
[2020-06-27] MEDS: NORCO 7.5-325 PO SCH ×3 (08:11→20:23)
[2020-06-27] MEDS: PRAVACHOL PO SCH (08:11)
[2020-06-27] MEDS: VITAMIN D PO SCH (08:11)
[2020-06-27] MEDS: ZESTRIL PO SCH (08:11)
[2020-06-27] MEDS: DECADRON IM SCH (08:12)
[2020-06-27] MEDS: FORMOTEROL IH SCH ×2 (08:19→20:24)
[2020-06-27] MEDS: GLYCOPYRROLATE IH SCH ×2 (08:19→20:24)
[2020-06-27] MEDS: [UNRECOGNIZED DRUG - OTHER] IH SCH ×2 (08:19→20:24)
[2020-06-27] MEDS: HUMALOG MIX 75-25 SUBCUT PRN ×2 (13:00→17:15)
[2020-06-27] MEDS ORDERED: OMNICEF PO SCH (13:14)
[2020-06-27] MEDS: NON-FORMULARY MEDICATION (Liraglutide [Victoza 2-Pak] 0.6 MG/0.1 ML pen injector) SUBCUT SCH (13:22)
--- NOTE | 2020-06-27 13:33 | PN ---
DATE OF SERVICE: 06/25/2020 SUBJECTIVE: 65 year old white female hospitalized with COVID 19 pneumonia and respiratory failure. The patient says that she is feeling somewhat better, fatigued and tired and short of breath as usual. Oxygen saturation is 95% on 1-2 liters. REVIEW OF SYSTEMS: CONSTITUTIONAL: No night sweats. Fatigue. No fever or chills. HEENT: Eyes: No visual changes. No eye pain. No eye discharge. ENT: No runny nose. No epistaxis. No sinus pain. No sore throat. No odynophagia. No congestion. RESPIRATORY: No cough, no congestion. No hemoptysis. Shortness of breath on minimal exertion. CARDIOVASCULAR: No angina symptoms. No CHF symptoms. No atypical chest pain for CAD. No palpitations. No PND. No orthopnea. GASTROINTESTINAL: No abdominal pain. No nausea or vomiting. No diarrhea or constipation. No hematemesis. No hematochezia. Appetite seems to be improving. GENITOURINARY: No urgency. No frequency. No dysuria. No hematuria. No obstructive symptoms. No discharge. No pain. No significant abnormal bleeding. MUSCULOSKELETAL: No musculoskeletal pain; no joint swelling. NEUROLOGICAL: No headache. No neck pain. No syncope. No seizures. No dizziness. PSYCHIATRIC: Not anxious. No depression. No suicidal thoughts. No homicidal thoughts. SKIN: No rash. No lesions. No wounds. ENDOCRINE: No unexplained weight loss. No weight gain. HEMATOLOGIC/LYMPHATIC: No anemia. No purpura. No petechiae. No prolonged or excessive bleeding. No palpable lymph nodes. PHYSICAL EXAMINATION: VITAL SIGNS: Temperature 97.1, pulse 57, respiratory rate 19, blood pressure 140/100 and pulse ox 95%. HEENT: Head normocephalic, atraumatic. Eyes: Extraocular muscles are intact. Pupils are equal, round and reactive to light and accommodation. Ears: No lesions. Nose appeared normal. Throat: No exudate or erythema. NECK: Supple. No JVD, no carotid bruit. No lymphadenopathy or thyromegaly. LUNGS: Decreased breath sounds but clear to auscultation. Percussion note normal. Chest symmetrical. HEART: S1, S2, no S3. No murmurs. No cyanosis or clubbing. No ascites. Pulses: Dorsalis pedis and posterior tibial pulses +1 to +2 bilaterally. ABDOMEN: Soft. Nontender. Bowel sounds active. No CVA tenderness. No mass felt. EXTREMITIES: No edema. Full range of motion of all extremities, equal. NEUROLOGIC: No focal deficit. Cranial nerves II through XII are grossly intact. No headache, no double vision or headache. SKIN: Not dry. Intact. Turgor - normal. LYMPHATIC: No palpable lymph nodes/no lymphedema. MUSCULOSKELETAL: Normal joints with no swelling. Muscle tone is normal. LABS: Showed hypoglycemia. The patient was to cut down on her insulin up take. She did not have any symptoms. She manages her own insulin. She was explained that her morning blood sugar was 47. Hgb 13, hct 38, WBC 8,300 normal differential, creatinine 1.1, BUN 41. ASSESSMENT: 1. COVID 19 pneumonia 2. Respiratory failure 3. Hypoglycemia 4. Diabetes mellitus 5. Renal azotemia seems to have been resolving PLAN: 1. Increase the oral fluids 2. Increase the food intake 3. Continue Remdesivir 4. Continue Dexamethasone 5. Continue Omnicef 300mg BID along with Doxycycline 6. Hypoglycemia discussed with the patient. The patient obviously doesn't have any symptoms. 7. The patient's Ferritin level today was 98 which is normal and Troponin was negative. C Reactive protein was 55 two days ago. CONDITION: Stable. TIME SPENT: More than 30 minutes. Plan and coordination of the patient's care discussed in the presence of nurse. ASTRID
--- NOTE | 2020-06-27 14:10 | PN ---
DATE OF SERVICE: 06/26/2020 SUBJECTIVE: 65 year old white female hospitalized with bilateral pneumonia with COVID 19. Condition steadily has improved. She is 14-15 days post COVID. She is going to be transferred to the regular floor. REVIEW OF SYSTEMS: CONSTITUTIONAL: No night sweats. Fatigue. No fever or chills. HEENT: Eyes: No visual changes. No eye pain. No eye discharge. ENT: No runny nose. No epistaxis. No sinus pain. No sore throat. No odynophagia. No congestion. RESPIRATORY: No cough, no congestion. No hemoptysis. Shortness of breath with exertion but the patient has usually shortness of breath with exertion even at home from sedentary lifestyle. CARDIOVASCULAR: No angina symptoms. No CHF symptoms. No atypical chest pain for CAD. No palpitations. No PND. No orthopnea. GASTROINTESTINAL: No abdominal pain. No nausea or vomiting. No diarrhea or constipation. No hematemesis. No hematochezia. GENITOURINARY: No urgency. No frequency. No dysuria. No hematuria. No obstructive symptoms. No discharge. No pain. No significant abnormal bleeding. MUSCULOSKELETAL: No musculoskeletal pain; no joint swelling. NEUROLOGICAL: Mild headache. No neck pain. No syncope. No seizures. No dizziness. PSYCHIATRIC: Not anxious. No depression. No suicidal thoughts. No homicidal thoughts. SKIN: No rash. No lesions. No wounds. ENDOCRINE: No unexplained weight loss. No weight gain. HEMATOLOGIC/LYMPHATIC: No anemia. No purpura. No petechiae. No prolonged or excessive bleeding. No palpable lymph nodes. PHYSICAL EXAMINATION: GENERAL: The patient is oriented to time, place and person. VITAL SIGNS: Temperature 97.8, pulse 60, respiratory rate 16, blood pressure 135/70 and pulse ox 96% HEENT: Head normocephalic, atraumatic. Eyes: Extraocular muscles are intact. Pupils are equal, round and reactive to light and accommodation. Ears: No lesions. Nose appeared normal. Throat: No exudate or erythema. NECK: Supple. No JVD, no carotid bruit. No lymphadenopathy or thyromegaly. LUNGS: Decreased breath sounds but clear to auscultation. Percussion note normal. Chest symmetrical. HEART: S1, S2, no S3. No murmurs. No cyanosis or clubbing. No ascites. Pulses: Dorsalis pedis and posterior tibial pulses +1 to +2 bilaterally. ABDOMEN: Soft. Nontender. Bowel sounds active. No CVA tenderness. No mass felt. EXTREMITIES: No edema. Full range of motion of all extremities, equal. NEUROLOGIC: No focal deficit. Cranial nerves II through XII are grossly intact. No headache, no double vision or headache. SKIN: Not dry. Intact. Turgor - normal. LYMPHATIC: No palpable lymph nodes/no lymphedema. MUSCULOSKELETAL: Normal joints with no swelling. Muscle tone is normal. LABS: Hgb 13.7, hct 40, WBC 14,000 normal differential,creatinine 1.2, BUN 37, potassium 4.5. ABG done yesterday showed pO2 60 with pCO2 of 47, pH 7.45 with 92% saturation on room air. The patient's Ferritin level is normal. Estimated GFR is 43 cc per minute which has improved. Creatinine 1.2, BUN 37. Hgb 13.7, hct 40, WBC 14,000 normal differential. C- reactive protein 55 which was on 13 of this month. ASSESSMENT: 1. Bilateral pneumonia, clinically seems to be improving with improvement in oxygenation. 2. Hypoglycemia, 57. Usually decided on her own dose of insulin. That dose was cut down by 5-10 units again today. She has been asked to cut down another 5-10 units. Explained about hypoglycemia. 3. Diabetes Mellitus 4. Obesity 5. Hypertension 6. Dyslipidemia 7. Chronic lung disease PLAN: 1. Continue Steroids, antibiotics Omnicef and Doxycycline. 2. The patient is having last dose of Remdesvir today. CONDITION: Stable and improving. The patient very likely to be discharge in couple of days home. TIME SPENT: More than 30 minutes. Plan and coordination of the patient's care discussed in the presence of nurse. ASTRID
[2020-06-28] MEDS: ATROVENT HFA INHALER (PER PUFF-WITH SPACER) IH SCH ×3 (05:00→19:22)
[2020-06-28] MEDS: VENTOLIN HFA (PER PUFF-WITH SPACER) IH SCH ×3 (05:00→19:22)
[2020-06-28 05:18] LABS: HEMATOCRIT 38.2 % (37.0-47.0); HEMOGLOBIN 12.8 g/dl (12.0-16.0); IMMATURE GRANULOCYTE % (AUTO) 0.5 % (0.0-5.0); LYMPHOCYTES % (AUTO) 12.3 (10.0-50.0); MEAN CORPUSCULAR HEMOGLOBIN 29.3 pg (27.0-31.0); MEAN CORPUSCULAR HGB CONC 33.5 (31.8-35.4); MEAN CORPUSCULAR VOLUME 87.4 fl (81.0-99.0); MONOCYTES # (AUTO) 0.5 K/uL (0.4-2.0); MONOCYTES % (AUTO) 6.2 (0-10); NEUTROPHILS # (AUTO) 6.5 K/ul (2.0-6.9); PLATELET COUNT 162 10^3/uL (140-440); RDW COEFFICIENT OF VARIATION 13.2 % (11.6-14.8); RED BLOOD COUNT 4.37 10^6/ul (4.20-5.40); WHITE BLOOD COUNT 8.06 K/ul (4.6-10.2)
[2020-06-28 05:31] LABS: ALANINE AMINOTRANSFERASE 24.9 U/L (0-35); ALBUMIN 3.52 g/dL (3.5-5.0); ALKALINE PHOSPHATASE 84.4 U/L (53-141); ASPARTATE AMINO TRANSFERASE 27.1 U/L (14-36); BILIRUBIN,TOTAL 0.59 mg/dL (0.2-1.3); BLOOD UREA NITROGEN 45.8 mg/dL (7-17); CALCIUM 9.14 mg/dL (8.4-10.2); CHLORIDE 99.6 mmol/L (98-107); CREATININE 1.23 mg/dL (0.60-1.30); GLUCOSE 140.7 mg/dL (74-106); POTASSIUM 4.53 mmol/L (3.5-5.1); SODIUM 135.1 mmol/L (134.5-145); TOTAL PROTEIN 6.42 g/dL (6.3-8.2)
[2020-06-28] MEDS: PEPCID PO SCH ×2 (05:36→17:03)
[2020-06-28] MEDS: LASIX TAB PO SCH (05:36)
[2020-06-28] MEDS: SYNTHROID PO SCH (05:36)
[2020-06-28] MEDS: PROTONIX PO SCH ×2 (05:37→17:04)
[2020-06-28 07:18] LABS: C-REACTIVE PROTEIN 8 mg/L (0-10)
[2020-06-28] MEDS: VITAMIN D PO SCH (08:30)
[2020-06-28] MEDS: DOXYCYCLINE HYCLATE PO SCH (08:31)
[2020-06-28] MEDS: PRAVACHOL PO SCH (08:31)
[2020-06-28] MEDS: MICRO-K CAP PO SCH (08:32)
[2020-06-28] MEDS: ZESTRIL PO SCH (08:32)
[2020-06-28] MEDS: ZINC-220 PO SCH (08:32)
[2020-06-28] MEDS: NORCO 7.5-325 PO SCH ×3 (08:32→20:30)
[2020-06-28] MEDS: LOPRESSOR PO SCH ×2 (08:32→20:30)
[2020-06-28] MEDS: ASPIRIN EC PO SCH (08:32)
[2020-06-28] MEDS: DECADRON IM SCH (08:33)
[2020-06-28] MEDS: NEURONTIN PO SCH ×2 (08:35→20:29)
--- NOTE | 2020-06-28 09:06 | DI ---
EXAM: Chest one view, frontal view only. HISTORY: Shortness of breath with exertion. COMPARISON: 06/22/2020. FINDINGS: The heart size is normal. There is no pulmonary vascular congestion. The ground-glass op acities seen on the prior study appear improved although there are probably some residual opacities b ilaterally. Otherwise, the lungs are clear. No pleural effusion or pneumothorax is seen. No acute osseous abnormality is identified. IMPRESSION: Improved aeration in both lungs. Some persistent haziness over both lung khan.
--- NOTE | 2020-06-28 09:54 | PCM.PROG ---
Attending Provider: ATTENDING PROVIDER: Dr. JOYCE MCINTYRE This patient is seen with Bebe Shearer, Nurse Practitioner. DATE OF SERVICE: 06/28/20 SUBJECTIVE: This 65 year old /WHITE F was hospitalized 06/21/20. The patient is resting comfortably in bed. She is still fatigued with cough. BUN slightly worsened. She is encouraged her to drink. REVIEW OF SYSTEMS: CONSTITUTIONAL: Weakness. No night sweats. No fatigue, malaise, lethargy. No fever or chills. HEENT: Eyes: No visual changes. No eye pain. No eye discharge. ENT: No runny nose. No epistaxis. No sinus pain. No odynophagia. No congestion. RESPIRATORY: Cough. No hemoptysis. No shortness of breath. CARDIOVASCULAR: No angina symptoms. No CHF symptoms. No atypical chest pain for CAD. No palpitations. No orthopnea.. GASTROINTESTINAL: No abdominal pain. No nausea or vomiting. No diarrhea or constipation. No hematemesis. No hematochezia. GENITOURINARY: No urgency. No frequency. No dysuria. No hematuria. No obstructive symptoms. No discharge. No pain. No significant abnormal bleeding. MUSCULOSKELETAL: No musculoskeletal pain; no joint swelling. NEUROLOGICAL: Awake, alert, oriented to time, place and person. No headache. No neck pain. No syncope. No seizures. No dizziness. PSYCHIATRIC: Not anxious. No depression. No suicidal thoughts. No homicidal thoughts. SKIN: No rash. No lesions. No wounds. ENDOCRINE: No unexplained weight loss. No weight gain. HEMATOLOGIC/LYMPHATIC: No anemia. No purpura. No petechiae. No prolonged or excessive bleeding. No palpable lymph nodes. PHYSICAL EXAMINATION: GENERAL: The patient is awake, alert and oriented, lying/sitting in bed in no distress. VITAL SIGNS: Temperature 97.5 F, Pulse 58, Respiratory Rate 20, BP 132/79, Pulse Ox 90% HEENT: Head normocephalic, atraumatic. Eyes: Extraocular muscles are intact. Pupils are equal, round and reactive to light and accommodation. Ears: No lesions. Nose appeared normal. Throat: No exudate or erythema. NECK: Supple. No JVD, no carotid bruit. No lymphadenopathy or thyromegaly. LUNGS: Diminished breath sounds. Clear to auscultation. Percussion note normal. Chest symmetrical. HEART: S1, S2, no S3. No murmurs. No cyanosis or clubbing. No ascites. Pulses: Dorsalis pedis and posterior tibial pulses +1 to +2 both sides. ABDOMEN: Soft. Non-tender. Bowel sounds active. No CVA tenderness. No mass felt. EXTREMITIES: No edema. Full range of motion of all extremities, equal. NEUROLOGIC: No focal deficit. Cranial nerves II through XII are grossly intact. No headache, no double vision or headache. SKIN: Not dry. Intact. Turgor-normal. LYMPHATIC: No palpable lymph nodes/no lymphedema. MUSCULOSKELETAL: Normal joints with no swelling. Muscle tone is normal. LAB REVIEW: 06/28/20 05:00 06/28/20 05:00 06/28/20 05:00: Sodium 135.1, Potassium 4.53, Chloride 99.6, Carbon Dioxide 30.0, Anion Gap 10.03, BUN 45.8 H, Creatinine 1.23, Estimated GFR (MDRD) 44.00, BUN/Creatinine Ratio 37.23, Glucose 140.7 H, Calcium 9.14, Ferritin 85.00, Total Bilirubin 0.59, AST 27.1, ALT 24.9, Alkaline Phosphatase 84.4, Total Protein 6.42, Albumin 3.52, Globulin 2.90, Albumin/Globulin Ratio 1.21 06/28/20 05:00: WBC 8.06, RBC 4.37, Hgb 12.8, Hct 38.2, MCV 87.4, MCH 29.3, MCHC 33.5, RDW Coeff of Regina 13.2, Plt Count 162, Immature Gran % (Auto) 0.5, Neut % (Auto) 81.0 H, Lymph % (Auto) 12.3, Levy % (Auto) 6.2, Eos % (Auto) 0.0, Baso % (Auto) 0.0, Neut # (Auto) 6.5, Lymph # (Auto) 1.0, Levy # (Auto) 0.5, Eos # (Auto) 0.0, Baso # (Auto) 0.0, Immature Gran # (Auto) 0.0 06/27/20 04:35: Lactate Dehydrogenase 243 H, C-Reactive Prot, Quant 8 ASSESSMENT: Please see below. 1. Covid-19 pneumonia seems to be responding to Remdesivir, steroids and antibiotics. 2. Cardiovascular status and diabetes mellitus seems to be under control. The patient has her own way of controlling her blood sugar and she does a good job of it. 3. She has hyperglycemia which is persistent from steroids and she was explained about this finding. 4. The patient is morbidly obese with chronic lung disease. She has history of smoking that seems to be the underlying problem which is going to be the deciding factor on how far she will recover from the Covid-19 pneumonia. PLAN: 1. D/C tomorrow. 2. Encourage fluids. 3. D/C Decadron. 4. Start Prednisone 10 mg b.i.d. Plan and coordination of the patient's care discussed in the presence of Home Organizer and nurse. CONDITION: Stable SCRIBED BY: SHELLEY CLAYTON Health Information Management Director scribed while in presence of service performed by Dr. Mcintyre/Bebe Shearer APRN on 06/28/20 ([id number])
[2020-06-28] MEDS: [UNRECOGNIZED DRUG - OTHER] IH SCH ×2 (11:19→20:30)
[2020-06-28] MEDS: FORMOTEROL IH SCH ×2 (11:19→20:30)
[2020-06-28] MEDS: GLYCOPYRROLATE IH SCH ×2 (11:19→20:30)
[2020-06-28] MEDS: HUMALOG MIX 75-25 SUBCUT PRN (11:57)
[2020-06-28] MEDS: NON-FORMULARY MEDICATION (Liraglutide [Victoza 2-Pak] 0.6 MG/0.1 ML pen injector) SUBCUT SCH (11:58)
[2020-06-28] MEDS: PREDNISONE PO SCH (17:03)
[2020-06-28] MEDS: SYMBICORT 160-4.5 MCG INHALER IH SCH (20:29)
[2020-06-29 04:09] LABS: C-REACTIVE PROTEIN 4 mg/L (0-10)
[2020-06-29] MEDS: VENTOLIN HFA (PER PUFF-WITH SPACER) IH SCH (05:04)
[2020-06-29] MEDS: ATROVENT HFA INHALER (PER PUFF-WITH SPACER) IH SCH (05:04)
[2020-06-29 05:08] LABS: HEMATOCRIT 39.7 % (37.0-47.0); HEMOGLOBIN 13.3 g/dl (12.0-16.0); IMMATURE GRANULOCYTE # (AUTO) 0.1 (0.0-1.0); IMMATURE GRANULOCYTE % (AUTO) 0.8 % (0.0-5.0); LYMPHOCYTES % (AUTO) 11.4 (10.0-50.0); MEAN CORPUSCULAR HEMOGLOBIN 29.5 pg (27.0-31.0); MEAN CORPUSCULAR HGB CONC 33.5 (31.8-35.4); MONOCYTES # (AUTO) 0.6 K/uL (0.4-2.0); NEUTROPHILS # (AUTO) 7.1 K/ul (2.0-6.9); NEUTROPHILS % (AUTO) 80.8 % (42.2-75.2); PLATELET COUNT 158 10^3/uL (140-440); RDW COEFFICIENT OF VARIATION 13.4 % (11.6-14.8); RED BLOOD COUNT 4.51 10^6/ul (4.20-5.40); WHITE BLOOD COUNT 8.83 K/ul (4.6-10.2)
[2020-06-29 05:25] LABS: ALANINE AMINOTRANSFERASE 31.2 U/L (0-35); ALBUMIN 3.64 g/dL (3.5-5.0); ALKALINE PHOSPHATASE 80.1 U/L (53-141); ASPARTATE AMINO TRANSFERASE 38.3 U/L (14-36); BILIRUBIN,TOTAL 0.85 mg/dL (0.2-1.3); CALCIUM 8.96 mg/dL (8.4-10.2); CARBON DIOXIDE 26.5 mmol/L (22-30.0); CHLORIDE 99.7 mmol/L (98-107); CREATININE 1.27 mg/dL (0.60-1.30); GLUCOSE 146.3 mg/dL (74-106); POTASSIUM 4.94 mmol/L (3.5-5.1); SODIUM 132.4 mmol/L (134.5-145); TOTAL PROTEIN 6.58 g/dL (6.3-8.2)
[2020-06-29 05:57] VITALS: BP 96/55; TEMP 97.9
[2020-06-29] MEDS: LASIX TAB PO SCH (05:57)
[2020-06-29] MEDS: PROTONIX PO SCH (05:57)
[2020-06-29] MEDS: SYNTHROID PO SCH (05:57)
[2020-06-29] MEDS: PEPCID PO SCH (05:57)
[2020-06-29] MEDS: NEURONTIN PO SCH (08:59)
[2020-06-29] MEDS: NORCO 7.5-325 PO SCH (08:59)
[2020-06-29] MEDS: MICRO-K CAP PO SCH (08:59)
[2020-06-29] MEDS: VITAMIN D PO SCH (08:59)
[2020-06-29] MEDS: LOPRESSOR PO SCH (08:59)
[2020-06-29] MEDS: PREDNISONE PO SCH (09:00)
[2020-06-29] MEDS: PRAVACHOL PO SCH (09:00)
[2020-06-29] MEDS: ZESTRIL PO SCH (09:00)
[2020-06-29] MEDS: ASPIRIN EC PO SCH (09:00)
[2020-06-29] MEDS: DOXYCYCLINE HYCLATE PO SCH (09:00)
[2020-06-29] MEDS: ZINC-220 PO SCH (09:00)
[2020-06-29] MEDS: SYMBICORT 160-4.5 MCG INHALER IH SCH (09:01)
[2020-06-29] MEDS: GLYCOPYRROLATE IH SCH (09:03)
[2020-06-29] MEDS: FORMOTEROL IH SCH (09:03)
[2020-06-29] MEDS: [UNRECOGNIZED DRUG - OTHER] IH SCH (09:03)
--- NOTE | 2020-06-29 10:36 | CM.DICTOOL ---
ADMISSION: 06/21/20 00:46 DISCHARGE: JUNE 29, 2020 DATE OF SERVICE: 06/29/20 FINAL DIAGNOSIS ACUTE RESPIRATORY FAILURE, RESOLVED PNEUMONIA, BILATERAL, IMPROVING COVID 19 (06/11/2020) CHRONIC KIDNEY DISEASE, STAGE 3-4 COPD ASTHMA HYPERTENSION DIABETES MELLITUS (A1C 5.8 ON 11/2019) DYSLIPIDEMIA HYPOTHYROIDISM MORBID OBESITY (BMI 44.4) METABOLIC SYNDROME FATTY LIVER DJD CERVICAL AND LUMBAR SPINE (PAIN MANAGEMENT DR. HUANG) NEUROPATHY FORMER SMOKER MULTI LEVEL DEGENERATIVE DISC DISEASE, LUMBER SPINE ATRIAL FIB/PAROXYSMAL ATRIAL FIB (2019) NON-COMPLIANCE DIET, LIFESTYLE LAST ECHO: COMPLETED 06/27/2020 ENLARGED RIGHT VENTRICLE NORMAL LV CONTRACTILITY LVH CHOLECYSTECTOMY, 1976 D&C BACK SURGERY, 2008 OOPHERECTOMY, 2008 HEART CATH, 2015 DR. LINDSEY SIGALA VITALS Temp Pulse Resp BP Pulse Ox 97.9 F 57 L 18 96/55 L 97 06/29/20 05:56 06/29/20 05:56 06/29/20 05:56 06/29/20 05:56 06/29/20 05:56 TAKE THESE MEDICATIONS AT HOME Hydrocodone Bitart/Acetaminophen (Hydrocodone Bit/Acetaminophen 7.5/325 Mg Tablet) 1 tab PO TID [facility] Last Admin: 06/29/20 08:59 Dose: 1 tab Documented by: Albuterol Sulfate (Albuterol Sulfate (Ventolin Hfa) 18 Gm 1 Puff With Spacer) 1 puff IH Q6H PRN PRN Reason: Wheezing Alprazolam (Alprazolam 0.5 Mg Tablet) 0.5 mg PO TID PRN PRN Reason: Anxiety Last Admin: 06/25/20 20:39 Dose: 0.5 mg Documented by: Aspirin (Aspirin 81 Mg Tablet.) 81 mg PO DAILYWM [facility] Last Admin: 06/29/20 09:00 Dose: 81 mg Documented by: Budesonide/Formoterol Fumarate (Budesonide/Formoterol Fumarate 160/4.5 Mcg Inhaler) 2 puff IH BID [facility] Last Admin: 06/29/20 09:01 Dose: 2 puff (NEW MEDICATION X 30 DAYS) Documented by: Cholecalciferol (Cholecalciferol (Vitamin D3) 1,000 Unit Tablet) 2,000 unit PO DAILY [facility] Last Admin: 06/29/20 08:59 Dose: 5,000 unit (NEW MEDICATION X 30 DAYS) Documented by: Doxycycline Hyclate (Doxycycline Hyclate 100 Mg Capsule) 100 mg PO DAILY [facility] Stop: 07/01/20 08:59 (NEW MEDICATION X 5 DAYS) Last Admin: 06/29/20 09:00 Dose: 100 mg Documented by: Furosemide (Furosemide 40 Mg Tablet) 40 mg PO QDAC [facility] Last Admin: 06/29/20 05:57 Dose: 40 mg Documented by: Gabapentin (Gabapentin 300 Mg Capsule) 1,200 mg PO BEDTIME [facility] Last Admin: 06/28/20 20:29 Dose: 1,200 mg Documented by: Gabapentin (Gabapentin 300 Mg Capsule) 600 mg PO DAILY [facility] Last Admin: 06/29/20 08:59 Dose: 600 mg Documented by: Hydroxyzine HCl (Hydroxyzine Hcl 25 Mg Tablet) 25 mg PO TID PRN PRN Reason: Rash Insulin Lispro Protam/Lispro Human (Insulin Npl/Insulin Lispro 75/25 100 Unit/Ml) 50 - 100 unit SUBCUT TIDWM PRN PRN Reason: HYPERGLYCEMIA Last Admin: 06/28/20 11:57 Dose: 100 unit Documented by: Levothyroxine Sodium (Levothyroxine Sodium 75 Mcg Tablet) 75 mcg PO QDAC [facility] Last Admin: 06/29/20 05:57 Dose: 75 mcg Documented by: Lisinopril (Lisinopril 40 Mg Tablet) 40 mg PO DAILY [facility] Last Admin: 06/29/20 09:00 Dose: 40 mg Documented by: Metoprolol Tartrate (Metoprolol Tartrate 25 Mg Tablet) 25 mg PO BID [facility] Last Admin: 06/29/20 08:59 Dose: 25 mg Documented by: Non-Formulary Medication (Liraglutide [Victoza 2-Everett]) 1.2 mg SUBCUT 1200 [facility] Last Admin: 06/28/20 11:58 Dose: 1.2 mg Documented by: Nystatin (Nystatin 15 Gm Powder) 1 applic TP BID PRN PRN Reason: Rash Pantoprazole Sodium (Pantoprazole Sodium 40 Mg Tablet.Dr) 40 mg PO BIDAC [facility] Last Admin: 06/29/20 05:57 Dose: 40 mg Documented by: Potassium Chloride (Potassium Chloride 10 Meq Capsule.Er) 10 meq PO DAILYWM [facility] Last Admin: 06/29/20 08:59 Dose: 10 meq Documented by: Pravastatin Sodium (Pravastatin Sodium 40 Mg Tablet) 40 mg PO DAILY [facility] Last Admin: 06/29/20 09:00 Dose: 40 mg Documented by: Prednisone (Prednisone 10 Mg Tablet) 10 mg PO DAILY [facility] Last Admin: 06/29/20 09:00 Dose: 10 mg (NEW MEDICATION X 5 DAYS) Documented by: Zinc Sulfate (Zinc Sulfate 220 Mg Capsule) 220 mg PO DAILY [facility] Last Admin: 06/29/20 09:00 Dose: 220 mg (NEW MEDICATION X 30 DAYS) Documented by: ALLERGIES epinephrine Adverse Reaction (Mild, Verified 06/20/20 23:52) Rash metronidazole [From Flagyl] Adverse Reaction (Verified 06/20/20 23:52) Diarrhea naproxen [From Naprosyn] Adverse Reaction (Verified 06/20/20 23:52) Vomiting Penicillins Adverse Reaction (Verified 06/20/20 23:52) Hives Sulfa (Sulfonamide Antibiotics) Adverse Reaction (Verified 06/20/20 23:52) Hives sulfamethoxazole [From Bactrim] Adverse Reaction (Verified 06/20/20 23:52) Hives trimethoprim [From Bactrim] Adverse Reaction (Verified 06/20/20 23:52) Hives vancomycin Adverse Reaction (Verified 06/20/20 23:52) Unknown DISCONTINUED MEDICATIONS CARDIZEM 60 MG BID BEVESPI AEROSPHERE (INHALER) BID NEW PRESCRIPTIONS: PREDNISONE 10 MG DAILY FOR 5 DAYS DOXYCYCLINE 100 MG DAILY FOR 5 DAYS VITAMIN D 2000 UNITS DAILY FOR 30 DAYS ZINC 220 MG DAILY FOR 30 DAYS SYMBICORT 160-4.5 2 PUFFS BID FOR 30 DAYS SMOKING: NOT APPLICABLE (PATIENT NO LONGER SMOKES) DISEASE SPECIFIC EDUCATION: COVID 19 PNEUMONIA NUTRITION/FLUID INTAKE/HYDRATION USE OF STEROIDS; RISK OF GI IRRITATION, ELEVATED BLOOD SUGAR APPOINTMENT LAB REVIEW: 06/29/20 04:50 06/29/20 04:50 06/29/20 04:50: Sodium 132.4 L, Potassium 4.94, Chloride 99.7, Carbon Dioxide 26.5, Anion Gap 11.14, BUN 49.0 H, Creatinine 1.27, Estimated GFR (MDRD) 42.00, BUN/Creatinine Ratio 38.58, Glucose 146.3 H, Calcium 8.96, Total Bilirubin 0.85, AST 38.3 H, ALT 31.2, Alkaline Phosphatase 80.1, Total Protein 6.58, Albumin 3.64, Globulin 2.94, Albumin/Globulin Ratio 1.23 06/29/20 04:50: WBC 8.83, RBC 4.51, Hgb 13.3, Hct 39.7, MCV 88.0, MCH 29.5, MCHC 33.5, RDW Coeff of Regina 13.4, Plt Count 158, Immature Gran % (Auto) 0.8, Neut % (Auto) 80.8 H, Lymph % (Auto) 11.4, [place]wey % (Auto) 7.0, Eos % (Auto) 0.0, Baso % (Auto) 0.0, Neut # (Auto) 7.1 H, Lymph # (Auto) 1.0, [place]wey # (Auto) 0.6, Eos # (Auto) 0.0, Baso # (Auto) 0.0, Immature Gran # (Auto) 0.1 06/28/20 05:00: Lactate Dehydrogenase 187, C-Reactive Prot, Quant 4 PLAN: DISCHARGE HOME TODAY DIET: CONSISTENT CARBOHYDRATES, WATER ENCOURAGED ACTIVITY: GRADUALLY RESUME ACTIVITY, USE CANE NEEDED REST WHEN TIRED CONTINUE ACCU-CHECKS AND USE OF NOVOLOG INSULIN TID WITH MEALS PRN RX FOR NEW GLUCOMETER, TESTING SUPPLIES WAS CALLED TO 1 BY YAYA PATHAK APRN AN APPOINTMENT IS SCHEDULED WITH DR. MCINTYRE/YAYA PATHAK APRN/NISHA TO APRN ON AT 9 AM CODE STATUS: CPR ONLY, DO NOT INTUBATE MS. WALLACE IS ALERT AND ORIENTED X 4. SHE IS AGREEABLE TO DISCHARGE PLANS FOR TODAY. ALL QUESTIONS ANSWERED REGARDING HYDRATION, INSULIN ADMINISTRATION AND NEW MEDICATIONS. MS. WALLACE LIVES ALONE IN AN APARTMENT. SHE IS INDEPENDENT WITH ACTIVITIES OF DAILY LIVING. SHE USES A STANDARD CANE WHEN AMBULATING. HER GAIT IS STEADY. SHE REPORTS SHE DOES NOT HAVE ANY TYPE ASSISTANCE AT HOME; NOR DOES SHE NEED ASSISTANCE. SHE RELIES ON HER SON FOR THINGS SHE CAN'T TAKE CARE OF. HYDRATION STATUS IS GOOD. MEAL INTAKES HAVE IMPROVED SINCE HER ADMISSION. SHE IS CONSUMING 25-100% OF HER MEALS. SHE IS CONTINENT OF BOWEL AND BLADDER. REPORTS STOOLS X 2 YESTERDAY. SKIN IS INTACT; SCATTERED SMALL AREAS OF BRUISING IS NOTED TO BOTH ARMS. AREAS OF PSORIASIS NOTED TO HER BACK. JOYCE MCINTYRE MD
--- NOTE | 2020-06-29 10:39 | PCM.PROG ---
Attending Provider: ATTENDING PROVIDER: Dr. JOYCE MCINTYRE DATE OF SERVICE: 06/29/20 SUBJECTIVE: This 65 year old /WHITE F was hospitalized 06/21/20 with COVID 19 pneumonia and respiratory failure. The patient's condition has improved. Chest x-ray has improved. Clinically she is afebrile for past several days. Appetite has improved. Kidney function is a lot better. REVIEW OF SYSTEMS: CONSTITUTIONAL: No night sweats. No fatigue, malaise, lethargy. No fever or chills. HEENT: Eyes: No visual changes. No eye pain. No eye discharge. ENT: No runny nose. No epistaxis. No sinus pain. No odynophagia. No congestion. RESPIRATORY: No cough, no congestion. No hemoptysis. No shortness of breath. CARDIOVASCULAR: No angina symptoms. No CHF symptoms. No atypical chest pain for CAD. No palpitations. No orthopnea.. GASTROINTESTINAL: No abdominal pain. No nausea or vomiting. No diarrhea or constipation. No hematemesis. No hematochezia. GENITOURINARY: No urgency. No frequency. No dysuria. No hematuria. No obstructive symptoms. No discharge. No pain. No significant abnormal bleeding. MUSCULOSKELETAL: No musculoskeletal pain; no joint swelling. NEUROLOGICAL: Awake, alert, oriented to time, place and person. No headache. No neck pain. No syncope. No seizures. No dizziness. PSYCHIATRIC: Not anxious. No depression. No suicidal thoughts. No homicidal thoughts. SKIN: No rash. No lesions. No wounds. ENDOCRINE: No unexplained weight loss. No weight gain. HEMATOLOGIC/LYMPHATIC: No anemia. No purpura. No petechiae. No prolonged or excessive bleeding. No palpable lymph nodes. PHYSICAL EXAMINATION: GENERAL: The patient is awake, alert and oriented, lying in bed in no distress. VITAL SIGNS: Temperature 97.9 F, Pulse 57, Respiratory Rate 18, BP 96/55, Pulse Ox 97% HEENT: Head normocephalic, atraumatic. Eyes: Extraocular muscles are intact. Pupils are equal, round and reactive to light and accommodation. Ears: No lesions. Nose appeared normal. Throat: No exudate or erythema. NECK: Supple. No JVD, no carotid bruit. No lymphadenopathy or thyromegaly. LUNGS: Clear to auscultation. Percussion note normal. Chest symmetrical. HEART: S1, S2, no S3. No murmurs. No cyanosis or clubbing. No ascites. Pulses: Dorsalis pedis and posterior tibial pulses +1 to +2 both sides. ABDOMEN: Soft. Non-tender. Bowel sounds active. No CVA tenderness. No mass felt. EXTREMITIES: No edema. Full range of motion of all extremities, equal. NEUROLOGIC: No focal deficit. Cranial nerves II through XII are grossly intact. No headache, no double vision or headache. SKIN: Warm and dry. Intact. Turgor-normal. LYMPHATIC: No palpable lymph nodes/no lymphedema. MUSCULOSKELETAL: Normal joints with no swelling. Muscle tone is normal. LAB REVIEW: 06/29/20 04:50 06/29/20 04:50 06/29/20 04:50: Sodium 132.4 L, Potassium 4.94, Chloride 99.7, Carbon Dioxide 26.5, Anion Gap 11.14, BUN 49.0 H, Creatinine 1.27, Estimated GFR (MDRD) 42.00, BUN/Creatinine Ratio 38.58, Glucose 146.3 H, Calcium 8.96, Total Bilirubin 0.85, AST 38.3 H, ALT 31.2, Alkaline Phosphatase 80.1, Total Protein 6.58, Albumin 3.64, Globulin 2.94, Albumin/Globulin Ratio 1.23 06/29/20 04:50: WBC 8.83, RBC 4.51, Hgb 13.3, Hct 39.7, MCV 88.0, MCH 29.5, MCHC 33.5, RDW Coeff of Regina 13.4, Plt Count 158, Immature Gran % (Auto) 0.8, Neut % (Auto) 80.8 H, Lymph % (Auto) 11.4, Glasscock % (Auto) 7.0, Eos % (Auto) 0.0, Baso % (Auto) 0.0, Neut # (Auto) 7.1 H, Lymph # (Auto) 1.0, [place]cock # (Auto) 0.6, Eos # (Auto) 0.0, Baso # (Auto) 0.0, Immature Gran # (Auto) 0.1 06/28/20 05:00: Lactate Dehydrogenase 187, C-Reactive Prot, Quant 4 06/27/20 04:35: Lactate Dehydrogenase 243 H ASSESSMENT: Please see below. 1. COVID 19 pneumonia, resolved 2. Respiratory failure resolved 3. Renal azotemia, resolved. PLAN: 1. Discharge home on Doxycycline and Prednisone 2. Continue same medications as before 3. Instruction to come back in 7 days. Plan and coordination of the patient's care discussed in the presence of Heater Furnace and nurse. CONDITION: Stable. SCRIBED BY: Katerine FERRELL scribed while in presence of service performed by Dr. JOYCE MCINTYRE on 06/29/20 ([id number])
--- NOTE | 2020-06-29 10:41 | DS ---
DATE OF SERVICE: 06/29/2020 FINAL DIAGNOSIS: ACUTE RESPIRATORY FAILURE, RESOLVED PNEUMONIA, BILATERAL, IMPROVING COVID 19 (06/11/2020) CHRONIC KIDNEY DISEASE, STAGE 3-4 COPD ASTHMA HYPERTENSION DIABETES MELLITUS (A1C 5.8 ON 11/2019) DYSLIPIDEMIA HYPOTHYROIDISM MORBID OBESITY (BMI 44.4) METABOLIC SYNDROME FATTY LIVER DJD CERVICAL AND LUMBAR SPINE (PAIN MANAGEMENT DR. HUANG) NEUROPATHY FORMER SMOKER MULTI LEVEL DEGENERATIVE DISC DISEASE, LUMBER SPINE ATRIAL FIB/PAROXYSMAL ATRIAL FIB (2019) NON-COMPLIANCE DIET, LIFESTYLE LAST ECHO: COMPLETED 06/27/2020 ENLARGED RIGHT VENTRICLE NORMAL LV CONTRACTILITY LVH CHOLECYSTECTOMY, 1976 D&C BACK SURGERY, 2008 OOPHERECTOMY, 2008 HEART CATH, 2015 DR. LINDSEY SIGALA VITALS Temp Pulse Resp BP Pulse Ox 97.9 F 57 L 18 96/55 L 97 06/29/20 05:56 06/29/20 05:56 06/29/20 05:56 06/29/20 05:56 06/29/20 05:56 DISCHARGE INSTRUCTIONS: DISCHARGE HOME TODAY.CONTINUE ACCU-CHECKS AND USE OF NOVOLOG INSULIN TID WITH MEALS PRN. RX FOR NEW GLUCOMETER, TESTING SUPPLIES WAS CALLED TO MD Manuel BY YAYA PATHAK APRN. AN APPOINTMENT IS SCHEDULED WITH DR. MCINTYRE/YAYA PATHAK APRN/NISHA TO APRN ON AT 9 AM. CODE STATUS: CPR ONLY, DO NOT INTUBATE TAKE THESE MEDICATIONS AT HOME: Hydrocodone Bitart/Acetaminophen (Hydrocodone Bit/Acetaminophen 7.5/325 Mg Tablet) 1 tab PO TID [facility] Last Admin: 06/29/20 08:59 Dose: 1 tab Documented by: Albuterol Sulfate (Albuterol Sulfate (Ventolin Hfa) 18 Gm 1 Puff With Spacer) 1 puff IH Q6H PRN PRN Reason: Wheezing Alprazolam (Alprazolam 0.5 Mg Tablet) 0.5 mg PO TID PRN PRN Reason: Anxiety Last Admin: 06/25/20 20:39 Dose: 0.5 mg Documented by: Aspirin (Aspirin 81 Mg Tablet.) 81 mg PO DAILYWM [facility] Last Admin: 06/29/20 09:00 Dose: 81 mg Documented by: Budesonide/Formoterol Fumarate (Budesonide/Formoterol Fumarate 160/4.5 Mcg Inhaler) 2 puff IH BID [facility] Last Admin: 06/29/20 09:01 Dose: 2 puff (NEW MEDICATION X 30 DAYS) Documented by: Cholecalciferol (Cholecalciferol (Vitamin D3) 1,000 Unit Tablet) 2,000 unit PO DAILY [facility] Last Admin: 06/29/20 08:59 Dose: 5,000 unit (NEW MEDICATION X 30 DAYS) Documented by: Doxycycline Hyclate (Doxycycline Hyclate 100 Mg Capsule) 100 mg PO DAILY [facility] Stop: 07/01/20 08:59 (NEW MEDICATION X 5 DAYS) Last Admin: 06/29/20 09:00 Dose: 100 mg Documented by: Furosemide (Furosemide 40 Mg Tablet) 40 mg PO QDAC [facility] Last Admin: 06/29/20 05:57 Dose: 40 mg Documented by: Gabapentin (Gabapentin 300 Mg Capsule) 1,200 mg PO BEDTIME [facility] Last Admin: 06/28/20 20:29 Dose: 1,200 mg Documented by: Gabapentin (Gabapentin 300 Mg Capsule) 600 mg PO DAILY [facility] Last Admin: 06/29/20 08:59 Dose: 600 mg Documented by: Hydroxyzine HCl (Hydroxyzine Hcl 25 Mg Tablet) 25 mg PO TID PRN PRN Reason: Rash Insulin Lispro Protam/Lispro Human (Insulin Npl/Insulin Lispro 75/25 100 Unit/Ml) 50 - 100 unit SUBCUT TIDWM PRN PRN Reason: HYPERGLYCEMIA Last Admin: 06/28/20 11:57 Dose: 100 unit Documented by: Levothyroxine Sodium (Levothyroxine Sodium 75 Mcg Tablet) 75 mcg PO QDAC [facility] Last Admin: 06/29/20 05:57 Dose: 75 mcg Documented by: Lisinopril (Lisinopril 40 Mg Tablet) 40 mg PO DAILY [facility] Last Admin: 06/29/20 09:00 Dose: 40 mg Documented by: Metoprolol Tartrate (Metoprolol Tartrate 25 Mg Tablet) 25 mg PO BID [facility] Last Admin: 06/29/20 08:59 Dose: 25 mg Documented by: Non-Formulary Medication (Liraglutide [Victoza 2-[place]]) 1.2 mg SUBCUT 1200 [facility] Last Admin: 06/28/20 11:58 Dose: 1.2 mg Documented by: Nystatin (Nystatin 15 Gm Powder) 1 applic TP BID PRN PRN Reason: Rash Pantoprazole Sodium (Pantoprazole Sodium 40 Mg Tablet.Dr) 40 mg PO BIDAC [facility] Last Admin: 06/29/20 05:57 Dose: 40 mg Documented by: Potassium Chloride (Potassium Chloride 10 Meq Capsule.Er) 10 meq PO DAILYWM [facility] Last Admin: 06/29/20 08:59 Dose: 10 meq Documented by: Pravastatin Sodium (Pravastatin Sodium 40 Mg Tablet) 40 mg PO DAILY [facility] Last Admin: 06/29/20 09:00 Dose: 40 mg Documented by: Prednisone (Prednisone 10 Mg Tablet) 10 mg PO DAILY WM [facility] Last Admin: 06/29/20 09:00 Dose: 10 mg (NEW MEDICATION X 5 DAYS) Documented by: Zinc Sulfate (Zinc Sulfate 220 Mg Capsule) 220 mg PO DAILY [facility] Last Admin: 06/29/20 09:00 Dose: 220 mg (NEW MEDICATION X 30 DAYS) Documented by: ALLERGIES: epinephrine Adverse Reaction (Mild, Verified 06/20/20 23:52) Rash metronidazole [From Flagyl] Adverse Reaction (Verified 06/20/20 23:52) Diarrhea naproxen [From Naprosyn] Adverse Reaction (Verified 06/20/20 23:52) Vomiting Penicillins Adverse Reaction (Verified 06/20/20 23:52) Hives Sulfa (Sulfonamide Antibiotics) Adverse Reaction (Verified 06/20/20 23:52) Hives sulfamethoxazole [From Bactrim] Adverse Reaction (Verified 06/20/20 23:52) Hives trimethoprim [From Bactrim] Adverse Reaction (Verified 06/20/20 23:52) Hives vancomycin Adverse Reaction (Verified 06/20/20 23:52) Unknown DISCONTINUED MEDICATIONS CARDIZEM 60 MG BID BEVESPI AEROSPHERE (INHALER) BID NEW PRESCRIPTIONS: PREDNISONE 10 MG DAILY FOR 5 DAYS DOXYCYCLINE 100 MG DAILY FOR 5 DAYS VITAMIN D 2000 UNITS DAILY FOR 30 DAYS ZINC 220 MG DAILY FOR 30 DAYS SYMBICORT 160-4.5 2 PUFFS BID FOR 30 DAYS SMOKING: NOT APPLICABLE (PATIENT NO LONGER SMOKES) DISEASE SPECIFIC EDUCATION: COVID 19 PNEUMONIA NUTRITION/FLUID INTAKE/HYDRATION USE OF STEROIDS; RISK OF GI IRRITATION, ELEVATED BLOOD SUGAR APPOINTMENT LAB REVIEW: 06/29/20 04:50 06/29/20 04:50 06/29/20 04:50: Sodium 132.4 L, Potassium 4.94, Chloride 99.7, Carbon Dioxide 26.5, Anion Gap 11.14, BUN 49.0 H, Creatinine 1.27, Estimated GFR (MDRD) 42.00, BUN/Creatinine Ratio 38.58, Glucose 146.3 H, Calcium 8.96, Total Bilirubin 0.85, AST 38.3 H, ALT 31.2, Alkaline Phosphatase 80.1, Total Protein 6.58, Albumin 3.64, Globulin 2.94, Albumin/Globulin Ratio 1.23 06/29/20 04:50: WBC 8.83, RBC 4.51, Hgb 13.3, Hct 39.7, MCV 88.0, MCH 29.5, MCHC 33.5, RDW Coeff of [place] 13.4, Plt Count 158, Immature Gran % (Auto) 0.8, Neut % (Auto) 80.8 H, Lymph % (Auto) 11.4, [place] % (Auto) 7.0, Eos % (Auto) 0.0, Baso % (Auto) 0.0, Neut # (Auto) 7.1 H, Lymph # (Auto) 1.0, [place] # (Auto) 0.6, Eos # (Auto) 0.0, Baso # (Auto) 0.0, Immature Gran # (Auto) 0.1 06/28/20 05:00: Lactate Dehydrogenase 187, C-Reactive Prot, Quant 4 DIET: CONSISTENT CARBOHYDRATES, WATER ENCOURAGED ACTIVITY: GRADUALLY RESUME ACTIVITY, USE CANE NEEDED REST WHEN TIRED HOSPITAL COURSE: 65 year old white female hospitalized with COVID 19 pneumonia, renal azotemia and respiratory failure. The patient has been treated with Remdesivir, steroids, Doxycycline and inhalers. The patient's condition has improved. Respiratory failure has resolved. She does not qualify for home oxygen. Renal azotemia has resolved. GFR less than 30cc per minute prior to hospitalization and now it's 42cc per minute. C-reactive protein was 4 at time of discharge. LDL is normal. Chest x-ray is normal. Cardiovascular status is stable. She has multiple comorbidities that are all stable. She is morbidly obese and advised to lose weight. She will discharged on Doxycycline, steroids, Zinc and Vitamin D. She is to manage her diabetes mellitus the way she has been at home prior to hospitalization. She has declined any referral to bariatric or other firer electric locomotive. She is advised a mammogram yearly as well as colonoscopy. TIME SPENT: More than 60 minutes. MTDD
--- NOTE | 2020-06-29 10:43 | PN ---
06/21/2020: Level 5 06/22/2020: Extensive 06/23/2020: Intermediate 06/24/2020: Intermediate 06/25/2020: Intermediate 06/26/2020: Intermediate 06/27/2020: Intermediate 06/28/2020: Intermediate 06/29/2020: D as in discharge MTDD
--- NOTE | 2020-06-29 13:30 | ECHO2D ---
Date of Exam: 06/27/2020 Ordering Physician: DR. JOYCE MCINTYRE Room #: 104 Reason for Echo: SOB, COPD, HTN, DM, POST COVID 19 M-Mode Normal Adult Results LV Dimensions Normal Adult Results AoV Opening excursions >1.6 >1.6 LVEDD-base- 3.5-5.8 4.3 Ao root dimensions 2.0-3.7 3.2 LVESD-base- 3.1-4.6 L. Atrium dimensions 1.9-3.8 4.0 Post. Wall thickness 0.8-1.1 1.1 IV septum (thickness) 0.7-1.2 1.2 Post. Wall excursion 0.72-1.3 NORMAL Septal motion NORMAL Systolic motion R. Ventricular cavity 1.5-2.0 LVEF 60% 50% Paradoxical septal wall motion 2-D : 2-D M Mode Echocardiogram was performed using apical four chamber and left parasternal long and short axis views. Mitral, tricuspid and aortic valves appear to be normal. Contractility of the left ventricle seems to be normal, so is the cavity size. Left atrial cavity size and aortic root appear to be normal. There is no pericardial effusion. There is no thrombus noted in the left ventricle or left atrial cavity. No mitral valve prolapse noted. M-MODE: MV: NORMAL AV: NORMAL TV: NORMAL PV: NORMAL CHAMBER SIZE: NORMAL WALL MOTION: NORMAL PERICARDIUM: NORMAL INTERPRETATION: 1. BORDERLINE LEFT VENTRICULAR HYPERTROPHY--BORDERLINE LEFT ATRIAL CAVITY 2. NORMAL LEFT VENTRICULAR CONTRACTILITY 3. NORMAL VALVES UNCHANGED 03/2020 [facility]
--- NOTE | 2020-07-02 13:35 | PN ---
DATE OF SERVICE: 06/27/20 SUBJECTIVE: Ms. hCase was seen and examined with the nurse practitioner. Condition is improving. Respiratory failure, three-step test that was done for oxygen requirement at home was negative. She had oxygen saturation more than 90% with walking. The patient's condition clinically has improved. She still has mild headache which is extremely mild according to her and the fatigue still persists with shortness of breath on exertion which has been getting less. REVIEW OF SYSTEMS: CONSTITUTIONAL: No night sweats. No fatigue, malaise, lethargy. No fever or chills. HEENT: Eyes: No visual changes. No eye pain. No eye discharge. ENT: No runny nose. No epistaxis. No sinus pain. No sore throat. No odynophagia. No congestion. RESPIRATORY: No cough, no congestion. No hemoptysis. No shortness of breath. CARDIOVASCULAR: No angina symptoms. No CHF symptoms. No atypical chest pain for CAD. No palpitations. No PND. No orthopnea. GASTROINTESTINAL: Appetite has improved. No abdominal pain. No nausea or vomiting. No diarrhea or constipation. No hematemesis. No hematochezia. GENITOURINARY: No urgency. No frequency. No dysuria. No hematuria. No obstructive symptoms. No discharge. No pain. No significant abnormal bleeding. MUSCULOSKELETAL: No musculoskeletal pain; no joint swelling. NEUROLOGICAL: Headache. No neck pain. No syncope. No seizures. No dizziness. PSYCHIATRIC: Not anxious. No depression. No suicidal thoughts. No homicidal thoughts. SKIN: No rash. No lesions. No wounds. ENDOCRINE: No unexplained weight loss. No weight gain. HEMATOLOGIC/LYMPHATIC: No anemia. No purpura. No petechiae. No prolonged or excessive bleeding. No palpable lymph nodes. PHYSICAL EXAMINATION: VITAL SIGNS: Temperature 97.7, pulse 50/min, respiratory rate 18, blood pressure 117/63, pulse ox 97% on 2L. HEENT: Head normocephalic, atraumatic. Eyes: Extraocular muscles are intact. Pupils are equal, round and reactive to light and accommodation. Ears: No lesions. Nose appeared normal. Throat: No exudate or erythema. NECK: Supple. No JVD, no carotid bruit. No lymphadenopathy or thyromegaly. LUNGS: Decreased breath sounds but clear to auscultation. Percussion note normal. Chest symmetrical. HEART: S1, S2, no S3. No murmurs. No cyanosis or clubbing. No ascites. Pulses: Dorsalis pedis and posterior tibial pulses +1 to +2 bilaterally. ABDOMEN: Soft. Nontender. Bowel sounds active. No CVA tenderness. No mass felt. EXTREMITIES: No edema. Full range of motion of all extremities, equal. NEUROLOGIC: No focal deficit. Cranial nerves II through XII are grossly intact. No headache, no double vision or headache. SKIN: Not dry. Intact. Turgor - normal. LYMPHATIC: No palpable lymph nodes/no lymphedema. MUSCULOSKELETAL: Normal joints with no swelling. Muscle tone is normal. LABS: Hemoglobin 13, hematocrit 39, WBC 10,000, normal differential. Creatinine 1.4, BUN 45, potassium 4.5, glucose 126. ASSESSMENT: 1. Covid-19 pneumonia, clinically has resolved. Inflammation persists but infection has resolved. Possibility of some fibrosis. 2. Severe chronic lung disease to begin with history of smoking and restrictive lung problems from morbid obesity. 3. Diabetes mellitus. 4. Chronic kidney disease. 5. Dyslipidemia. 6. Hypertension. PLAN: 1. Continue Doxycycline 100 mg p.o. daily. Will decrease the dose because the patient has diarrhea which could be from antibiotic. 2. Omnicef will be continued today and will be discontinued tomorrow after discharge. 3. The patient is to lose weight. Weight loss diet discussed with the patient. 4. The patient underwent echocardiogram which showed LVH with normal LV contractility. No change from March. The patient doesn't seem to have any effects of Covid on her myocardium. CONDITION: Stable TIME SPENT: More than 30 minutes. Plan and coordination of the patient's care discussed in the presence of nurse. ASTRID
--- NOTE | 2020-07-02 13:57 | PN ---
DATE OF SERVICE: 06/28/20 SUBJECTIVE: The patient was seen and examined with the nurse practitioner. The patient's condition is improving. The patient is likely to be discharged tomorrow. COPD is stable. The chest x-ray showed improvement in the pneumonia. TIME SPENT: More than 30 minutes. Plan and coordination of the patient's care discussed in the presence of nurse. ASTRID
== END 2020-06-29 12:10 | disposition home or self-care (01) | DRG 193 ==
LOC: ED 22:25 → MEDSURG B 06-21 00:46 → SCU 06-22 16:32 → MEDSURG A 06-26 14:10
PROVIDERS: ADMIT Internal Medicine; ATTEND Internal Medicine
DX: R06.02 Shortness of breath; E11.40 Type 2 diabetes mellitus with diabetic neuropathy, unspecified; E11.649 Type 2 diabetes mellitus with hypoglycemia without coma; E66.9 Obesity, unspecified; E03.9 Hypothyroidism, unspecified; N18.30 Chronic kidney disease, stage 3 unspecified; D64.9 Anemia, unspecified; J18.9 Pneumonia, unspecified organism; R05 Cough; J45.909 Unspecified asthma, uncomplicated; M19.90 Unspecified osteoarthritis, unspecified site; I10 Essential (primary) hypertension; J44.9 Chronic obstructive pulmonary disease, unspecified; Z91.19 Patient's noncompliance with other medical treatment and regimen; R79.89 Other specified abnormal findings of blood chemistry; J96.90 Respiratory failure, unspecified, unspecified whether with hypoxia or hypercapnia; E78.5 Hyperlipidemia, unspecified